=== PATIENT | female | born 1945 | race Caucasian/White ===

== ENCOUNTER → 2019-12-13 14:24 | Outpatient (BNVA) | payer MEDICARE, OTHER, SELFPAY | PROVIDERS: PCP Internal Medicine; Referring Provider Internal Medicine; Visit Provider Surgery | DX: C50.912 Malignant neoplasm of unspecified site of left female breast (principal); G47.00 Insomnia, unspecified; Z17.0 Estrogen receptor positive status [ER+]; Z92.3 Personal history of irradiation; F41.9 Anxiety disorder, unspecified | CPT/HCPCS: 99214 ==

== ENCOUNTER 2020-01-30 11:22 | Outpatient (REF) | payer MEDICARE, OTHER, SELFPAY ==
--- NOTE | 2020-01-30 11:27 | MM_ITS ---
EXAMINATION: MM DIAGNOSTIC DIGITAL MAMMOGRAPHY, BILATERAL CLINICAL INFORMATION: Status post lumpectomy 05/13/2023 and status post radiation for left invasive ductal cancer. Due for yearly. This represents first left mammography since treatment. COMPARISON: Mammography: 04/27/2019, 04/21/2019, 04/19/2019 (BI-RADS 0), 04/13/2018, 01/26/2017 TECHNIQUE: Digital mammography is performed in craniocaudal and mediolateral oblique views along with computer-aided detection (CAD). Additional magnification left CC and magnification left ML views are provided. FINDINGS: The breasts are heterogeneously dense, which may obscure small masses (ACR BI-RADS breast composition Category c). There are post therapy changes on the left with minor reduced breast size and scarring. The right breast parenchymal pattern is similar to prior studies. There is no developing density or interval mass or architectural abnormality. Neither breast shows abnormal calcifications. Results are provided to the patient at time of visit by the technologist. MM/MM diagnostic mammo BI IMPRESSION: No mammographic evidence of malignancy. Post therapy changes left breast. ASSESSMENT: BI-RADS 2: Benign RECOMMENDATION: Annual bilateral mammography. This patient's information was entered into a reminder system with a target due date for their next mammogram.
== END 2020-01-30 11:23 | disposition home or self-care (01) ==
LOC: HO.MAMMO 11:22
PROVIDERS: PCP Internal Medicine; Visit Provider Surgery
DX: Z85.3 Personal history of malignant neoplasm of breast (principal); Z92.3 Personal history of irradiation
CPT/HCPCS: 77066

== ENCOUNTER 2020-02-07 12:27 | Outpatient (REF) | payer MEDICARE, OTHER, SELFPAY ==
[2020-02-07 13:06] LABS: MANUAL DIFF FLAG NO
[2020-02-07 13:10] LABS: Basophils Percent Auto 0.9 % (0-2); Eosinophils Absolute Auto 0.1 X10*3/uL (0.0-0.4); Eosinophils Percent Auto 1.6 % (0-4); Hematocrit 42.6 % (37-47); Hemoglobin 13.6 g/dl (12.0-16.0); Imm Gran Abs Auto 0.01 X10*3/uL (0.00-0.03); Imm Gran Pct Auto 0.2 % (0.0-0.4); Lymphocytes Absolute Auto 1.2 X10*3/uL (1.2-4.9); Lymphocytes Percent Auto 26.7 % (20-40); Mean Corpuscular HGB Conc 31.9 g/dl (31.0-35.0); Mean Corpuscular Volume 90.8 fL (80-98); Mean Platelet Volume 9.6 fL (9.4-12.3); Monocytes Absolute Auto 0.5 X10*3/uL (0.1-1.2); Monocytes Percent Auto 10.3 % (2-11); Neutrophils Absolute Auto 2.7 X10*3/uL (2.0-8.3); Neutrophils Percent Auto 60.3 % (45-73); Platelet Count 232 X10*3/uL (160-400); Red Blood Count 4.69 X10*6/uL (4.20-5.50); Red Cell Distribution Width 12.7 % (11.0-16.0); White Blood Count 4.5 X10*3/uL (4.8-10.8)
[2020-02-07 13:42] LABS: Alanine Aminotransferase 12 U/L (0-31); Albumin Level 4.2 g/dL (3.5-5.0); Alkaline Phosphatase 80 U/L (39-117); Anion Gap 11 (12-20); Aspartate Amino Transferase 17 U/L (5-31); Bilirubin Total 0.7 mg/dL (0.0-1.0); Blood Urea Nitrogen 16 mg/dL (9-16); Calcium 9.1 mg/dL (8.4-10.2); Carbon Dioxide 28 mmol/L (22-29); Chloride 102 mmol/L (96-108); Cholesterol 220 mg/dL; Estimated Glomerular Filt Rate > 60; Glucose Fasting 98 mg/dL (60-99); HDL Cholesterol 94 mg/dL; LDL Cholesterol Calculated 114 mg/dl; Potassium 4.1 mmol/l (3.3-5.1); Sodium 137 mmol/L (135-145); Total Protein 6.8 g/dL (6.5-8.0); Triglycerides 62 mg/dL
[2020-02-07 13:53] LABS: Appearance Urine CLEAR; Color Urine YELLOW; Glucose Urine UA NEG (NEG); Leukocyte Esterase Urine NEG (NEG); Nitrite Urine NEG (NEG); Specific Gravity - Urine 1.015 (1.005-1.025); Urine Blood TRACE (NEG); Urine Ketones NEG (NEG); Urine Protein NEG (NEG-TRACE)
[2020-02-07 13:54] LABS: Vitamin D 25-OH Total 32.3 ng/mL (>30)
[2020-02-07 14:05] LABS: WBC Urine 0 /HPF (0-4)
[2020-02-07 14:09] LABS: Estimated Average Glucose 123 mg/dL; Hemoglobin A1c % 5.9 %
[2020-02-07 14:25] LABS: Creatinine Urine 75.91 mg/dL; Microalbum/Creatinine Ratio Ur 6.5 ug/mg cr
== END 2020-02-07 12:28 | disposition home or self-care (01) ==
LOC: HO.LAB 12:27
PROVIDERS: PCP Internal Medicine; Visit Provider Internal Medicine
DX: E78.00 Pure hypercholesterolemia, unspecified (principal); R73.03 Prediabetes; M85.89 Other specified disorders of bone density and structure, multiple sites; E55.9 Vitamin D deficiency, unspecified
CPT/HCPCS: 36415; 80053; 80061; 81001; 82043; 82306; 83036; 85025

== ENCOUNTER 2020-04-26 00:26 | Emergency (ER) | payer MEDICARE, OTHER, SELFPAY ==
--- NOTE | ~2020-04-26 | CT_ITS ---
EXAMINATION: CT HEAD WITHOUT CONTRAST CLINICAL INFORMATION: Dizziness. Hypertension. COMPARISON: None. TECHNIQUE: Contiguous axial imaging was performed from the skull base to vertex without intravenous contrast. This CT examination was performed using dose optimization techniques as appropriate, variously including the following: * Automated exposure control * Adjustment of mA and/or kV according to patient size (this includes techniques or standardized protocols for targeted exams where dose is matched to indication/reason for exam; i.e. extremities or head) Use of iterative reconstruction technique DLP: 638 mGy-cm. FINDINGS: There is no evidence of acute intracranial hemorrhage or territorial infarction. No abnormal mass effect or midline shift is seen. Gonzalez to white matter differentiation is well preserved. No extra-axial fluid collections are identified. No hydrocephalus. No significant volume loss. There is no abnormal attenuation within the brain parenchyma. The osseous structures and soft tissues are normal. Trace left mastoid air cell effusion. The right mastoid air cells and visualized portions of the paranasal sinuses are well aerated. CT/CT head/brain wo con IMPRESSION: No acute intracranial pathology.
[2020-04-26 00:48] VITALS: BP 138/88; PULSE 101; RESP 15; TEMP 36.6; O2SAT 96; BMI 23.1
--- NOTE | 2020-04-26 01:06 | ECG_ITS ---
Test Reason : DIZZINESS Blood Pressure : / mmHG Vent. Rate : 095 BPM Atrial Rate : 095 BPM P-R Int : 170 ms QRS Dur : 082 ms QT Int : 362 ms P-R-T Axes : 058 056 054 degrees QTc Int : 454 ms Normal sinus rhythm Normal ECG When compared with ECG of 13-JUL-2018 10:04, No significant change was found Referred By: Cecile Limon Electronically Signed By:SALVATORE CAMEJO MD
--- NOTE | 2020-04-26 01:42 | ED.GENADULT ---
HPI - General Adult General Chief complaint: General Medical Stated complaint: HIGH BLOOD PRESSURE Time Seen by Provider: 04/26/20 01:05 Source: patient Mode of arrival: ambulatory History of Present Illness HPI narrative: This is a 74-year-old female with history of breast CA diagnosed/ear and currently undergoing radiation who states that she had a gin and tonic this evening and was then brushing her teeth when she experienced a transient episode of darkness which she denies occurred in 1 eye versus another and was not associated with nausea/diaphoresis/headache/chest pain/palpitations, but states that she felt lightheaded which still remains. She denies any evidence of vertigo with the room spinning, slurred speech, unilateral weakness/numbness/tingling. She denies falling and was able to presents as a walk-in. Related Data Home Medications Medication Instructions Recorded Confirmed cholecalciferol (vitamin D3) 50 50 mcg PO DAILY 12/13/19 mcg (2,000 unit) capsule magnesium hydroxide 400 mg/5 mL 5 ml PO DAILY PRN 12/13/19 oral suspension Allergies Allergy/AdvReac Type Severity Reaction Status Date / Time Sulfa (Sulfonamide Allergy Intermediate RASH/SWELLING, Verified 04/26/20 00:57 Antibiotics) rash [SULFA (SULFONAMIDE ANTIBIOTICS)] indomethacin [INDOMETHACIN] AdvReac Severe (FROM Verified 04/26/20 00:57 TIVOBEX) FELT OUT OF IT pneumococcal vaccine AdvReac Unknown SWELLING, Verified 04/26/20 00:57 [PNEUMOCOCCAL VACCINE] REDNESS Review of Systems Review of Systems: Pertinent positives and negatives as stated in HPI 10 point review of systems is otherwise negative. [facility] Past Medical History Source: nursing notes reviewed Medical History Infiltrating ductal carcinoma of left breast, estrogen receptor positive, stage 1 Surgical History History of hysterectomy History of lumpectomy of left breast History of lymph node excision Social History Social History Alcohol intake: current Alcohol intake frequency: 0-2 drinks per day Alcohol type: hard liquor Smoking Status: Never smoker Use of substances other than those prescribed or required for medical reasons: No Advance Directives: No Physical Exam Vital Signs: Vital Signs: Last Vital Signs Temp 97.9 F 04/26/20 00:48 Pulse 92 04/26/20 02:12 Resp 15 04/26/20 00:48 BP 151/82 H 04/26/20 02:12 Pulse Ox 96 04/26/20 00:48 Body Mass Index 23.1 VITAL SIGNS: Reviewed. GENERAL: Well developed, well nourished, in no acute distress. HEAD: Normocephalic/atraumatic, EYES: PERRLA, EOMI intact without pain, no nystagmus EARS: Ext canals without abnormality, TMs non-bulging and non-erythematous NOSE: Nares patent bilateral OROPHARYNX: no oral lesions noted, posterior pharynx clear NECK: Supple, no adenopathy LUNGS: Normal breath sounds. No adventitious sounds or accessory muscle use. SpO2<96> CARDIOVASCULAR: Regular rate and rhythm without noted murmurs, no JVD or lower extremity edema. ABDOMEN: Soft, non-tender, non-distended with bowel sounds. SKIN: Inspection of the skin reveals no rashes NEUROLOGIC: Alert and oriented x 4. Strength and sensation to light touch were grossly intact x 4, no pronator drift, cranial nerves 2-12 are grossly intact, cerebellar testing intact, no facial asymmetry. Course Course Course Narrative: This is a 74-year-old female with history and clinical presentation most consistent with suspected combination low volume and alcohol ingestion. However, will rule out cardiac, neuro etiologies. Review of all investigations is negative for any acute findings other than an elevated BUN suggestive of possible dehydration and patient was provided 1 L IV fluids with reportedly improvement in her symptoms on re-evaluation. In addition it was noted that her high sensitivity troponin was mildly elevated and 2nd troponin was flat and comparison without any corresponding EKG changes. All results and findings were discussed with her bedside and she was strongly encouraged to follow-up with her primary care provider in the next 1-2 days. Medical Decision Making Lab Data Result diagrams: 04/26/20 01:38 04/26/20 01:38 Labs: Lab Results 04/26/20 04/26/20 04/26/20 Range/Units 01:38 01:38 01:38 WBC 7.2 (4.8-10.8) X10*3/uL RBC 4.45 (4.20-5.50) X10*6/uL Hgb 13.0 (12.0-16.0) g/dl Hct 40.0 (37-47) % MCV 89.9 (80-98) fL MCH 29.2 (27.0-33.0) pg MCHC 32.5 (31.0-35.0) g/dl RDW 12.3 (11.0-16.0) % Plt Count 234 (160-400) X10*3/uL MPV 9.7 (9.4-12.3) fL Immature Gran % (Auto) 0.3 (0.0-0.4) % Neut % (Auto) 72.4 (45-73) % Lymph % (Auto) 17.7 L (20-40) % [place] % (Auto) 8.0 (2-11) % Eos % (Auto) 1.0 (0-4) % Baso % (Auto) 0.6 (0-2) % Lymph # (Auto) 1.3 (1.2-4.9) X10*3/uL [place] # (Auto) 0.6 (0.1-1.2) X10*3/uL Eos # (Auto) 0.1 (0.0-0.4) X10*3/uL Baso # (Auto) 0.0 (0.0-0.2) X10*3/uL Abs Immat Gran (auto) 0.02 (0.00-0.03) X10*3/uL Absolute Neuts (auto) 5.2 (2.0-8.3) X10*3/uL Absolute Nucleated RBC 0.000 (0.0-0.012) X10*3/uL Nucleated RBC % (auto) 0.0 (0.0-0.2) /100WBC Sodium 141 (135-145) mmol/L Potassium 4.3 (3.3-5.1) mmol/L Chloride 105 (96-108) mmol/L Carbon Dioxide 26 (22-29) mmol/L Anion Gap 14 (12-20) BUN 26 H D (9-16) mg/dL Creatinine 0.76 (0.5-1.4) mg/dL Estim Creat Clear Calc 66.5 Estimated GFR > 60 Random Glucose 121 H (60-115) mg/dL Calcium 9.2 (8.4-10.2) mg/dL Total Bilirubin 0.2 (0.0-1.0) mg/dL AST 18 (5-31) U/L ALT 16 (0-31) U/L Alkaline Phosphatase 88 (39-117) U/L Troponin I High Sens 11.5 (<3.5-17.0) ng/L Total Protein 6.9 (6.5-8.0) g/dL Albumin 4.3 (3.5-5.0) g/dL Urine Color Urine Appearance Urine pH (5.0-8.0) Ur Specific [place] (1.005-1.025) Urine Protein (NEG-TRACE) MG/DL Urine Glucose (UA) (NEG) MG/DL Urine Ketones (NEG) MG/DL Urine Blood (NEG) Urine Nitrite (NEG) Ur Leukocyte Esterase (NEG) Urine RBC (0) /HPF Urine WBC (0-4) /HPF Ur Squamous Epith Cells /LPF Urine Bacteria /LPF Hyaline Casts /LPF Urine Mucus /LPF 04/26/20 04/26/20 Range/Units 02:25 04:39 WBC (4.8-10.8) X10*3/uL RBC (4.20-5.50) X10*6/uL Hgb (12.0-16.0) g/dl Hct (37-47) % MCV (80-98) fL MCH (27.0-33.0) pg MCHC (31.0-35.0) g/dl RDW (11.0-16.0) % Plt Count (160-400) X10*3/uL MPV (9.4-12.3) fL Immature Gran % (Auto) (0.0-0.4) % Neut % (Auto) (45-73) % Lymph % (Auto) (20-40) % [place] % (Auto) (2-11) % Eos % (Auto) (0-4) % Baso % (Auto) (0-2) % Lymph # (Auto) (1.2-4.9) X10*3/uL [place] # (Auto) (0.1-1.2) X10*3/uL Eos # (Auto) (0.0-0.4) X10*3/uL Baso # (Auto) (0.0-0.2) X10*3/uL Abs Immat Gran (auto) (0.00-0.03) X10*3/uL Absolute Neuts (auto) (2.0-8.3) X10*3/uL Absolute Nucleated RBC (0.0-0.012) X10*3/uL Nucleated RBC % (auto) (0.0-0.2) /100WBC Sodium (135-145) mmol/L Potassium (3.3-5.1) mmol/L Chloride (96-108) mmol/L Carbon Dioxide (22-29) mmol/L Anion Gap (12-20) BUN (9-16) mg/dL Creatinine (0.5-1.4) mg/dL Estim Creat Clear Calc Estimated GFR Random Glucose (60-115) mg/dL Calcium (8.4-10.2) mg/dL Total Bilirubin (0.0-1.0) mg/dL AST (5-31) U/L ALT (0-31) U/L Alkaline Phosphatase (39-117) U/L Troponin I High Sens 11.8 (<3.5-17.0) ng/L Total Protein (6.5-8.0) g/dL Albumin (3.5-5.0) g/dL Urine Color YELLOW Urine Appearance CLEAR Urine pH 6.0 (5.0-8.0) Ur Specific [place] >= 1.030 H (1.005-1.025) Urine Protein NEG (NEG-TRACE) MG/DL Urine Glucose (UA) NEG (NEG) MG/DL Urine Ketones NEG (NEG) MG/DL Urine Blood TRACE (NEG) Urine Nitrite NEG (NEG) Ur Leukocyte Esterase NEG (NEG) Urine RBC 1-4 (0) /HPF Urine WBC 5-9 H (0-4) /HPF Ur Squamous Epith Cells 1+ /LPF Urine Bacteria 1+ /LPF Hyaline Casts 5-9 /LPF Urine Mucus 1+ /LPF ECG Data Attestation: I personally reviewed and interpreted this ECG as follows: Prior ECG tracings: available for review (07/13/2018 no acute changes on comparison) Interpretation: Normal sinus rhythm, HR-95, no evidence of acute ischemia, IL/QRS/QTC are within normal limits. Discharge Plan Discharge Clinical Impression: Dizziness Patient Disposition: Home, Self-Care Instructions: Lightheadedness (ED) Additional Instructions: Please follow-up with your primary care provider in the next 1-2 days and do not hesitate to return to the emergency department should you develop any acute changes or worsening symptoms that brought you to the emergency department this evening. Prescriptions: No Action magnesium hydroxide 400 mg/5 mL suspension 5 ml PO DAILY PRNRF: 0 cholecalciferol (vitamin D3) 50 mcg (2,000 unit) capsule 50 mcg PO DAILY RF: 0 Referrals: Peter Bernabe MD [Primary Care Provider] - 2 days (Revaluation outpatient management for transient episode lightheadedness and on workup in the emergency department cardiopulmonary etiologies were negative.)
[2020-04-26 01:44] LABS: MANUAL DIFF FLAG NO
[2020-04-26 01:46] LABS: Basophils Percent Auto 0.6 % (0-2); Eosinophils Absolute Auto 0.1 X10*3/uL (0.0-0.4); Imm Gran Abs Auto 0.02 X10*3/uL (0.00-0.03); Imm Gran Pct Auto 0.3 % (0.0-0.4); Lymphocytes Absolute Auto 1.3 X10*3/uL (1.2-4.9); Lymphocytes Percent Auto 17.7 % (20-40); Mean Corpuscular HGB Conc 32.5 g/dl (31.0-35.0); Mean Corpuscular Hemoglobin 29.2 pg (27.0-33.0); Mean Corpuscular Volume 89.9 fL (80-98); Mean Platelet Volume 9.7 fL (9.4-12.3); Monocytes Absolute Auto 0.6 X10*3/uL (0.1-1.2); Neutrophils Absolute Auto 5.2 X10*3/uL (2.0-8.3); Neutrophils Percent Auto 72.4 % (45-73); Platelet Count 234 X10*3/uL (160-400); Red Blood Count 4.45 X10*6/uL (4.20-5.50); Red Cell Distribution Width 12.3 % (11.0-16.0); White Blood Count 7.2 X10*3/uL (4.8-10.8)
[2020-04-26 01:49] VITALS: BP 125/74; PULSE 86
[2020-04-26 02:10] LABS: Alanine Aminotransferase 16 U/L (0-31); Albumin Level 4.3 g/dL (3.5-5.0); Alkaline Phosphatase 88 U/L (39-117); Anion Gap 14 (12-20); Aspartate Amino Transferase 18 U/L (5-31); Bilirubin Total 0.2 mg/dL (0.0-1.0); Blood Urea Nitrogen 26 mg/dL (9-16); Calcium 9.2 mg/dL (8.4-10.2); Carbon Dioxide 26 mmol/L (22-29); Chloride 105 mmol/L (96-108); Creatinine Clr Calc Pharmacy 66.5; Estimated Glomerular Filt Rate > 60; Glucose Random 121 mg/dL (60-115); Potassium 4.3 mmol/L (3.3-5.1); Sodium 141 mmol/L (135-145); Total Protein 6.9 g/dL (6.5-8.0)
[2020-04-26 02:11] VITALS: BP 138/80; PULSE 86
[2020-04-26 02:12] VITALS: BP 151/82; PULSE 92
[2020-04-26 02:14] LABS: Troponin-I High Sensitivity 11.5 ng/L (<3.5-17.0)
[2020-04-26] MEDS: 0.9 % Sodium Chloride 1,000 ML 999 ML IV (02:23)
[2020-04-26 02:34] LABS: Glucose Urine UA NEG (NEG); Leukocyte Esterase Urine NEG (NEG); Nitrite Urine NEG (NEG); Specific Gravity - Urine >= 1.030 (1.005-1.025); Urine Blood TRACE (NEG); Urine Ketones NEG (NEG); Urine Protein NEG (NEG-TRACE)
[2020-04-26 02:38] LABS: Appearance Urine CLEAR; Color Urine YELLOW
[2020-04-26 02:44] LABS: Bacteria Urine 1+ /LPF; Mucus Urine 1+ /LPF; Squamous Epithelial Cell Urine 1+ /LPF; UACC CULT YES
[2020-04-26 04:00] VITALS: BP 128/64; PULSE 84; RESP 15; O2SAT 98
[2020-04-26 05:07] LABS: Troponin-I High Sensitivity 11.8 ng/L (<3.5-17.0)
== END 2020-04-26 05:36 | disposition home or self-care (01) ==
PROVIDERS: Emergency Provider Student in an Organized Health Care Education/Training Program; PCP Internal Medicine
DX: R42 Dizziness and giddiness (principal); E86.0 Dehydration; Z85.3 Personal history of malignant neoplasm of breast
CPT/HCPCS: 36415; 70450; 80053; 81001; 84484; 85025; 87086; 93005; 96360; 99284

== ENCOUNTER 2020-05-24 10:24 | Outpatient (REF) | payer MEDICARE, OTHER, SELFPAY ==
[2020-05-24 11:19] LABS: Blood Urea Nitrogen 21 mg/dL (9-16); Estimated Glomerular Filt Rate > 60
== END 2020-05-24 10:25 | disposition home or self-care (01) ==
LOC: HO.LNP 10:24
PROVIDERS: PCP Internal Medicine; Visit Provider Internal Medicine
DX: R79.89 Other specified abnormal findings of blood chemistry (principal)
CPT/HCPCS: 82565; 84520

== ENCOUNTER → 2020-07-05 10:09 | Outpatient (BNVA) | payer MEDICARE, OTHER, SELFPAY | PROVIDERS: PCP Internal Medicine; Referring Provider Internal Medicine; Visit Provider Surgery | DX: C50.912 Malignant neoplasm of unspecified site of left female breast (principal); Z17.0 Estrogen receptor positive status [ER+] | CPT/HCPCS: 99212 ==

== ENCOUNTER 2020-07-17 10:24 | Outpatient (REF) | payer MEDICARE, OTHER, SELFPAY | END 2020-07-17 10:25 | disposition home or self-care (01) | LOC: HO.LNP 10:24 | PROVIDERS: Visit Provider Internal Medicine | DX: F51.01 Primary insomnia (principal) | CPT/HCPCS: 84443 ==

== ENCOUNTER → 2020-11-27 09:37 | Outpatient (BNVA) | payer MEDICARE, OTHER, SELFPAY | PROVIDERS: PCP Internal Medicine; Visit Provider Surgery Vascular Surgery | DX: I83.11 Varicose veins of right lower extremity with inflammation (principal) | CPT/HCPCS: 99202 ==

== ENCOUNTER 2020-12-11 07:51 | Outpatient (REF) | payer MEDICARE, OTHER, SELFPAY ==
--- NOTE | ~2020-12-11 | US_ITS ---
EXAMINATION: BILATERAL LOWER EXTREMITY VENOUS ULTRASOUND (Reflux Exam) CLINICAL INDICATION: Lower extremity varicose veins. History of bilateral microphlebectomy approximately 4 years ago. COMPARISON: None. TECHNIQUE: Color flow triplex imaging and compression Doppler was performed to evaluate both the deep and the superficial systems bilaterally. To evaluate the superficial system, the examination was performed in the upright position. Color-flow Doppler ultrasound and compression ultrasound were utilized. In addition, maneuvers were utilized to demonstrate reflux. FINDINGS: 1. DEEP VENOUS ULTRASOUND OF THE RIGHT LOWER EXTREMITY: Common Femoral Vein: Compressible, normal respiratory variation and augmented flow. Femoral vein: Compressible, normal color flow and augmentation. Popliteal Vein: Compressible, normal augmentation. Deep Reflux: Popliteal vein measuring up to 0.6 cm. There is a 5.8 x 1.0 x 4.1 cm Weber's cyst in the right medial popliteal fossa. 2. SUPERFICIAL ULTRASOUND WITH DOPPLER OF RIGHT LOWER EXTREMITY GREAT SAPHENOUS VEIN: Saphenofemoral junction: 0.5 cm; Reflux: No evidence of reflux. Max diameter: 0.5 Min diameter: 0.1 Reflux: Segmental reflux below the knee measuring up to 3.2 seconds. Additional: The great saphenous vein at the proximal thigh is not visualized. DUPLICATED MEDIAL GREAT SAPHENOUS VEIN: Max Diameter: None Imaged Reflux: NA DUPLICATED LATERAL GREAT SAPHENOUS VEIN: Diameter: None Imaged Reflux: NA SMALL SAPHENOUS VEIN: Saphenopopliteal junction: 0.3 cm; Reflux: No evidence of reflux. Min diameter: 0.2 Reflux: No evidence of reflux. VEIN OF GIACOMINI: None Imaged. PERFORATORS: Location: At knee, 0.2 cm Reflux: None VARICOSITIES: Location: Mid calf, proximal thigh, lateral anterior knee and medial thigh. All varicosities measure greater than 3 mm. Reflux: Reflux present up to 3 seconds. 3. DEEP VENOUS ULTRASOUND OF THE LEFT LOWER EXTREMITY: Common Femoral Vein: Compressible, normal respiratory variation and augmented flow. Femoral vein: Compressible, normal color flow and augmentation. Popliteal Vein: Compressible, normal augmentation. Deep Reflux: There is no evidence of reflux in the deep system in either the common femoral vein or the popliteal vein. Within the left popliteal fossa is a 5.8 x 1.0 x 0.6 cm Weber's cyst. 4. SUPERFICIAL ULTRASOUND WITH DOPPLER OF LEFT LOWER EXTREMITY GREAT SAPHENOUS VEIN: Saphenopopliteal junction: 0.7 cm; Reflux: No evidence of reflux. Max diameter: 0.7 Min diameter: 0.2 Reflux: No evidence of reflux. Additional: The great saphenous vein is not seen from the mid thigh to the mid calf. DUPLICATED MEDIAL GREAT SAPHENOUS VEIN: Max Diameter: None Imaged Reflux: NA DUPLICATED LATERAL GREAT SAPHENOUS VEIN: Diameter: 0.3 cm Reflux: None SMALL SAPHENOUS VEIN: Saphenofemoral junction: 0.2 cm; Reflux: No evidence of reflux. Min diameter: 0.2 Reflux: 0.8 seconds at the mid calf. VEIN OF GIACOMINI: None Imaged. PERFORATORS: Location: Mid thigh and distal calf measuring 2 mm. Reflux: None VARICOSITIES: Location: Proximal thigh, measuring 3 mm. Reflux: None US/US venous duplex LE BI IMPRESSION: 1. Segmental reflux within the right great saphenous vein below the knee. 2. No evidence of left great saphenous venous insufficiency. The left great saphenous vein is not visualized from the mid thigh to the mid calf, likely related to prior treatment. 3. Segmental reflux within the left small saphenous vein at the mid calf. 4. Numerous right lower extremity refluxing varicosities. 5. Nonrefluxing varicosity seen within the proximal left thigh. 6. Deep venous insufficiency involving the right popliteal vein. 7. No evidence of DVT. 8. Bilateral Weber's cysts.
== END 2020-12-11 07:52 | disposition home or self-care (01) ==
LOC: HO.US 07:51
PROVIDERS: PCP Internal Medicine; Visit Provider Surgery Vascular Surgery
DX: I83.893 Varicose veins of bilateral lower extremities with other complications (principal); I83.11 Varicose veins of right lower extremity with inflammation
CPT/HCPCS: 93970

== ENCOUNTER → 2020-12-18 09:35 | Outpatient (BNVA) | payer MEDICARE, OTHER, SELFPAY | PROVIDERS: PCP Internal Medicine; Visit Provider Surgery Vascular Surgery | DX: I83.11 Varicose veins of right lower extremity with inflammation (principal) | CPT/HCPCS: 99212 ==

== ENCOUNTER 2021-01-29 09:01 | Outpatient (REF) | payer MEDICARE, OTHER, SELFPAY ==
--- NOTE | ~2021-01-29 | MM_ITS ---
EXAMINATION: MM DIAGNOSTIC DIGITAL BREAST TOMOSYNTHESIS, BILATERAL CLINICAL INFORMATION: Status post lumpectomy 05/13/2023 and status post radiation for left invasive ductal cancer. Due for yearly. COMPARISON: Mammography: 01/30/2020, 04/27/2019, 04/19/2019, 04/13/2018 TECHNIQUE: Digital breast tomosynthesis is performed in both the craniocaudal and mediolateral oblique views along with computer-aided detection (CAD). Synthesized 2D images are generated from the tomosynthesis. Additional magnification left CC and magnification left ML views are obtained. FINDINGS: The breasts are heterogeneously dense, which may obscure small masses (ACR BI-RADS breast composition Category c). Breast parenchymal pattern is similar to prior exam. There are post therapy changes on left with minor stable scarring 11:30 mid posterior breast. Neither breast shows interval mass or architectural abnormality. There are scattered benign coarse and rim calcifications. The skin contours are smooth. The axilla are unremarkable. Results are provided to the patient at time of visit by the technologist. MM/MM tomosynthesis diagnostic BI IMPRESSION: No mammographic evidence of malignancy. Post therapy changes left breast. ASSESSMENT: BI-RADS 2: Benign RECOMMENDATION: Annual bilateral mammography. This patient's information was entered into a reminder system with a target due date for their next mammogram.
== END 2021-01-29 09:02 | disposition home or self-care (01) ==
LOC: HO.MAMMO 09:01
PROVIDERS: PCP Internal Medicine; Visit Provider Surgery
DX: Z85.3 Personal history of malignant neoplasm of breast (principal); Z98.890 Other specified postprocedural states; Z92.3 Personal history of irradiation
CPT/HCPCS: 77062; 77066

== ENCOUNTER → 2021-02-05 09:21 | Outpatient (BNVA) | payer MEDICARE, OTHER, SELFPAY | PROVIDERS: PCP Internal Medicine; Referring Provider Internal Medicine; Visit Provider Surgery | DX: C50.912 Malignant neoplasm of unspecified site of left female breast (principal); R92.2 Inconclusive mammogram; Z17.0 Estrogen receptor positive status [ER+] | CPT/HCPCS: 99212 ==

== ENCOUNTER 2021-02-12 11:48 | Outpatient (REF) | payer MEDICARE, OTHER, SELFPAY ==
--- NOTE | ~2021-02-12 | MR_ITS ---
EXAMINATION: MR BREAST WITHOUT AND WITH CONTRAST, BILATERAL CLINICAL INFORMATION: Left breast cancer diagnosed 2019. Dense breasts. High-risk screening. COMPARISON: Mammography from 01/29/2021. TECHNIQUE: Imaging was performed with a dedicated breast coil. Prior to the administration of contrast, bilateral axial T1 and bilateral axial T2 weighted sequences were obtained. After the uneventful administration of?7 mL of Gadavist, dynamic contrast-enhanced VIBRANT series through the breasts in the axial plane were performed. Subtracted images were performed and reviewed. A delayed sagittal sequence through both breasts was acquired. Additionally, CAD post-processing, including maximum intensity projections, 3-D reconstructions and kinetic analysis, were performed an independent workstation and reviewed by the interpreting radiologist is a portion of this exam. FINDINGS: The breasts are comprised of heterogeneous, dense fibroglandular parenchyma. The tissue undergoes mild background enhancement. LEFT BREAST: There is architectural distortion and susceptibility artifact in the left upper inner quadrant, site of lumpectomy. No abnormal associated enhancement. No suspicious left breast mass or dominant nonmass enhancement. RIGHT BREAST: No suspicious mass, dominant nonmass enhancement or architectural distortion. Tiny intramammary node in the axillary tail (image 45/106). There is no suspicious internal mammary chain or axillary adenopathy. Limited views of the chest and abdomen demonstrate a T2 bright nonenhancing liver lesions consistent with cysts. MR/MR breast BI wo/w con IMPRESSION: No MR specific evidence of malignancy. Left lumpectomy. ASSESSMENT: LEFT BREAST: BI-RADS 2 RIGHT BREAST: BI-RADS 2 RECOMMENDATIONS: Yearly bilateral breast MR per published guidelines in high-risk patients.
[2021-02-12 11:50] LABS: Blood Urea Nitrogen 17 mg/dL (9-16); Estimated Glomerular Filt Rate > 60
== END 2021-02-12 11:49 | disposition home or self-care (01) ==
LOC: HO.MRI 11:48
PROVIDERS: PCP Internal Medicine; Visit Provider Surgery
DX: C50.912 Malignant neoplasm of unspecified site of left female breast (principal); Z17.0 Estrogen receptor positive status [ER+]; R92.2 Inconclusive mammogram
CPT/HCPCS: 36415; 77049; 82565; 84520; A9585

== ENCOUNTER 2021-02-26 10:16 | Outpatient (REF) | payer MEDICARE, OTHER, SELFPAY ==
[2021-02-26 10:19] LABS: MANUAL DIFF FLAG NO
[2021-02-26 10:28] LABS: Appearance Urine CLEAR; Color Urine YELLOW; Glucose Urine UA NEG (NEG); Leukocyte Esterase Urine NEG (NEG); Nitrite Urine NEG (NEG); Specific Gravity - Urine 1.015 (1.005-1.025); Urine Blood TRACE (NEG); Urine Ketones NEG (NEG); Urine Protein NEG (NEG-TRACE)
[2021-02-26 10:41] LABS: Basophils Percent Auto 0.8 % (0-2); Eosinophils Absolute Auto 0.1 X10*3/uL (0.0-0.4); Eosinophils Percent Auto 2.3 % (0-4); Hematocrit 41.9 % (37.0-47.0); Hemoglobin 13.5 g/dl (12.0-16.0); Imm Gran Abs Auto 0.02 X10*3/uL (0.00-0.03); Imm Gran Pct Auto 0.4 % (0.0-0.4); Lymphocytes Absolute Auto 1.7 X10*3/uL (1.2-4.9); Lymphocytes Percent Auto 32.3 % (20-40); Mean Corpuscular HGB Conc 32.2 g/dl (31.0-35.0); Mean Corpuscular Hemoglobin 29.1 pg (27.0-33.0); Mean Corpuscular Volume 90.3 fL (80.0-98.0); Mean Platelet Volume 10.1 fL (9.4-12.3); Monocytes Absolute Auto 0.5 X10*3/uL (0.1-1.2); Neutrophils Percent Auto 55.2 % (45-73); Platelet Count 239 X10*3/uL (160-400); Red Blood Count 4.64 X10*6/uL (4.20-5.50); Red Cell Distribution Width 12.3 % (11.0-16.0); White Blood Count 5.3 X10*3/uL (4.8-10.8)
[2021-02-26 10:46] LABS: Mucus Urine TRACE /LPF; Squamous Epithelial Cell Urine TRACE /LPF; WBC Urine 0 /HPF (0-4)
[2021-02-26 11:35] LABS: Creatinine Urine 141.13 mg/dL; Microalbumin Urine < 5.0 mg/L
[2021-02-26 11:36] LABS: Alanine Aminotransferase 14 U/L (0-31); Albumin Level 4.1 g/dL (3.5-5.0); Alkaline Phosphatase 86 U/L (39-117); Anion Gap 9 (12-20); Aspartate Amino Transferase 18 U/L (5-31); Bilirubin Total 0.6 mg/dL (0.0-1.0); Blood Urea Nitrogen 17 mg/dL (9-16); Calcium 9.5 mg/dL (8.4-10.2); Carbon Dioxide 30 mmol/L (22-29); Chloride 105 mmol/L (96-108); Cholesterol 217 mg/dL; Estimated Glomerular Filt Rate > 60; Glucose Fasting 97 mg/dL (60-99); HDL Cholesterol 78 mg/dL; LDL Cholesterol Calculated 123 mg/dl; Potassium 4.4 mmol/L (3.3-5.1); Sodium 140 mmol/L (135-145); Total Protein 6.7 g/dL (6.5-8.0); Triglycerides 82 mg/dL
[2021-02-26 11:59] LABS: Vitamin D 25-OH Total 30.8 ng/mL (>30)
[2021-02-26 12:18] LABS: Reflex LDLD? No
[2021-02-26 12:49] LABS: Estimated Average Glucose 120 mg/dL; Hemoglobin A1C 149.0827 umol/L; Hemoglobin A1c % 5.8 %
== END 2021-02-26 10:17 | disposition home or self-care (01) ==
LOC: HO.LNP 10:16
PROVIDERS: Visit Provider Internal Medicine
DX: E78.00 Pure hypercholesterolemia, unspecified (principal); R73.03 Prediabetes; E55.9 Vitamin D deficiency, unspecified; R79.9 Abnormal finding of blood chemistry, unspecified
CPT/HCPCS: 80053; 80061; 81001; 82043; 82306; 83036; 85025

== ENCOUNTER 2021-05-21 14:39 | Outpatient (REF) | payer MEDICARE, OTHER, SELFPAY ==
--- NOTE | ~2021-05-21 | US_ITS ---
EXAMINATION: US ABDOMEN LIMITED CLINICAL INFORMATION: Posterior lower back mass. COMPARISON: None TECHNIQUE: Real-time imaging of the right lateral lower back. Comparison imaging of the left lower back was performed. FINDINGS: There is a 2.5 x 2 x 1 cm slightly hypoechoic solid area in the cutaneous fat. This does not appear to be related to the musculature or abdominal wall to suggest a hernia and may represent a lipoma. This could be confirmed with CT or ultrasound clinically indicated. US/US abdomen limited IMPRESSION: 2.5 x 2 x 1 cm hypoechoic area in the right lower back questionable for a lipoma. This could be further evaluated with CT or MRI if clinically indicated.
== END 2021-05-21 14:40 | disposition home or self-care (01) ==
LOC: HO.US 14:39
PROVIDERS: Visit Provider Internal Medicine
DX: R22.2 Localized swelling, mass and lump, trunk (principal)
CPT/HCPCS: 76705

== ENCOUNTER → 2021-08-06 09:54 | Outpatient (BNVA) | payer MEDICARE, OTHER, SELFPAY | PROVIDERS: PCP Internal Medicine; Visit Provider Surgery | DX: R92.2 Inconclusive mammogram (principal); Z85.3 Personal history of malignant neoplasm of breast; Z92.3 Personal history of irradiation | CPT/HCPCS: 99212 ==

== ENCOUNTER 2022-01-27 08:53 | Outpatient (REF) | payer MEDICARE, OTHER, SELFPAY ==
--- NOTE | ~2022-01-27 | MM_ITS ---
EXAMINATION: MM DIAGNOSTIC DIGITAL BREAST TOMOSYNTHESIS, BILATERAL CLINICAL INFORMATION: Left breast ICD status post lumpectomy 04/27/2019. Due for yearly. COMPARISON: Mammography: 01/29/2021, 01/30/2020, 05/13/2019, 04/27/2019, 04/19/2019 TECHNIQUE: Digital breast tomosynthesis is performed in both the craniocaudal and mediolateral oblique views along with computer-aided detection (CAD). Synthesized 2D images are generated from the tomosynthesis. Additional left magnification CC and left magnification ML views are provided. FINDINGS: The breasts are heterogeneously dense, which may obscure small masses (ACR BI-RADS breast composition Category c). Left breast post therapy changes are stable. Neither breast shows interval mass or developing density or abnormal calcifications. There are scattered bilateral benign round and rim calcifications. The axilla are unremarkable. No significant changes. Results are provided to the patient at time of visit by the technologist. MM/MM tomosynthesis diagnostic BI IMPRESSION: -No mammographic evidence of malignancy. -Post therapy changes left breast. ASSESSMENT: BI-RADS 2: Benign RECOMMENDATION: Annual bilateral mammography. This patient's information was entered into a reminder system with a target due date for their next mammogram.
== END 2022-01-27 08:54 | disposition home or self-care (01) ==
LOC: HO.MAMMO 08:53
PROVIDERS: PCP Internal Medicine; Visit Provider Internal Medicine
DX: Z85.3 Personal history of malignant neoplasm of breast (principal)
CPT/HCPCS: 77062; 77066

== ENCOUNTER → 2022-02-04 10:04 | Outpatient (BNVA) | payer MEDICARE, OTHER, SELFPAY | PROVIDERS: PCP Internal Medicine; Visit Provider Surgery | DX: C50.212 Malignant neoplasm of upper-inner quadrant of left female breast (principal); R92.2 Inconclusive mammogram; Z17.0 Estrogen receptor positive status [ER+] | CPT/HCPCS: 99212 ==

== ENCOUNTER 2022-03-06 10:50 | Outpatient (REF) | payer MEDICARE, OTHER, SELFPAY ==
[2022-03-06 10:58] LABS: MANUAL DIFF FLAG NO
[2022-03-06 11:33] LABS: Basophils Percent Auto 0.8 % (0-2); Eosinophils Absolute Auto 0.1 X10*3/uL (0.0-0.4); Eosinophils Percent Auto 2.1 % (0-4); Hematocrit 41.8 % (37.0-47.0); Hemoglobin 13.4 g/dl (12.0-16.0); Imm Gran Abs Auto 0.01 X10*3/uL (0.00-0.03); Imm Gran Pct Auto 0.2 % (0.0-0.4); Lymphocytes Absolute Auto 1.5 X10*3/uL (1.2-4.9); Lymphocytes Percent Auto 27.8 % (20-40); Mean Corpuscular HGB Conc 32.1 g/dl (31.0-35.0); Mean Corpuscular Hemoglobin 28.8 pg (27.0-33.0); Mean Corpuscular Volume 89.9 fL (80.0-98.0); Monocytes Absolute Auto 0.5 X10*3/uL (0.1-1.2); Monocytes Percent Auto 8.8 % (2-11); Neutrophils Absolute Auto 3.2 x10*3/uL (2.0-8.3); Neutrophils Percent Auto 60.3 % (45-73); Platelet Count 224 X10*3/uL (160-400); Red Blood Count 4.65 X10*6/uL (4.20-5.50); Red Cell Distribution Width 12.2 % (11.0-16.0); White Blood Count 5.2 X10*3/uL (4.8-10.8)
[2022-03-06 11:34] LABS: Color Urine Yellow; Glucose Urine UA Negative (Negative); Leukocyte Esterase Urine Negative (Negative); Nitrite Urine Negative (Negative); Urine Blood Negative (Negative); Urine Ketones Negative (Negative); Urine Protein Negative (Neg-Trace)
[2022-03-06 11:37] LABS: Appearance Urine Clear; Estimated Average Glucose 120 mg/dL; Hemoglobin A1c % 5.8 %
[2022-03-06 11:41] LABS: Bacteria Urine None Seen (None Seen); Hyaline Casts Urine 0-2 /LPF (0-2); Squamous Epithelial Cell Urine 0-2 /HPF (0-2); WBC Urine 0-5 /HPF (0-5)
[2022-03-06 11:44] LABS: Alanine Aminotransferase 12 U/L (0-31); Albumin Level 4.1 g/dL (3.5-5.0); Alkaline Phosphatase 87 U/L (39-117); Anion Gap 11 (12-20); Aspartate Amino Transferase 18 U/L (5-31); Bilirubin Total 0.5 mg/dL (0.0-1.0); Blood Urea Nitrogen 17 mg/dL (9-16); Carbon Dioxide 28 mmol/L (22-29); Chloride 105 mmol/L (96-108); Cholesterol 222 mg/dL; Estimated Glomerular Filt Rate > 60; Glucose Fasting 100 mg/dL (60-99); HDL Cholesterol 90 mg/dL; LDL Cholesterol Calculated 119 mg/dl; Potassium 4.2 mmol/L (3.3-5.1); Sodium 140 mmol/L (135-145); Total Protein 6.4 g/dL (6.5-8.0); Triglycerides 68 mg/dL
[2022-03-06 12:00] LABS: Vitamin D 25-OH Total 29.4 ng/mL (>30)
[2022-03-06 12:07] LABS: Microalbum/Creatinine Ratio Ur 5.6 ug/mg cr
== END 2022-03-06 10:51 | disposition home or self-care (01) ==
LOC: HO.LNP 10:50
PROVIDERS: Visit Provider Internal Medicine
DX: E78.00 Pure hypercholesterolemia, unspecified (principal); R73.03 Prediabetes; E55.9 Vitamin D deficiency, unspecified
CPT/HCPCS: 80053; 80061; 81001; 82043; 82306; 83036; 85025; 87086

== ENCOUNTER → 2022-07-31 09:41 | Outpatient (BNVA) | payer MEDICARE, OTHER, SELFPAY | PROVIDERS: PCP Internal Medicine; Visit Provider Surgery | DX: C50.912 Malignant neoplasm of unspecified site of left female breast (principal); R92.2 Inconclusive mammogram; Z17.0 Estrogen receptor positive status [ER+] | CPT/HCPCS: 99212 ==

== ENCOUNTER 2023-01-29 11:00 | Outpatient (REF) | payer MEDICARE, OTHER, SELFPAY ==
--- NOTE | ~2023-01-29 | MM_ITS ---
EXAMINATION: MM DIAGNOSTIC DIGITAL BREAST TOMOSYNTHESIS, BILATERAL CLINICAL INFORMATION: Left breast IDC status post lumpectomy 04/27/2019. Due for yearly. COMPARISON: Mammography: 01/19/2022, 01/29/2021, 01/30/2020, 05/13/2019, 04/27/2019, 04/19/2019 TECHNIQUE: Digital breast tomosynthesis is performed in both the craniocaudal and mediolateral oblique views along with computer-aided detection (CAD). Synthesized 2D images are generated from the tomosynthesis. In addition, 2-D spot magnification left CC and ML views were preserved performed of the lumpectomy site. FINDINGS: There are scattered areas of fibroglandular density (ACR BI-RADS breast composition Category b). There are stable changes of lumpectomy and conservation treatment therapy in the left breast superiorly and slightly medially. No suspicious changes to the lumpectomy site. There are bilateral dystrophic appearing calcifications. There are no suspicious grouped pleomorphic calcifications. There are no masses, or areas of architectural distortion. The overall parenchymal pattern is unchanged. MM/MM tomosynthesis diagnostic BI IMPRESSION: There are no significant changes from prior study. Stable post treatment related changes left breast. This completes 3 year post lumpectomy protocol for the left breast. Recommend the patient return to routine annual screening. ASSESSMENT: BI-RADS BI-RADS 2 - Benign Findings RECOMMENDATION: 1 year F/U Results were provided to the patient at time of visit by the technologist. This patient's information was entered into a reminder system with a target due date for their next mammogram.
== END 2023-01-29 11:01 | disposition home or self-care (01) ==
LOC: HO.MAMMO 11:00
PROVIDERS: Absent Provider Surgery; PCP Internal Medicine; Visit Provider Internal Medicine
DX: Z85.3 Personal history of malignant neoplasm of breast (principal)
CPT/HCPCS: 77062; 77066

== ENCOUNTER → 2023-01-29 11:00 | Outpatient (BNV) | payer MEDICARE, OTHER, SELFPAY | PROVIDERS: Absent Provider Surgery; PCP Internal Medicine; Visit Provider Radiology Diagnostic Radiology | DX: R92.1 Mammographic calcification found on diagnostic imaging of breast (principal) | CPT/HCPCS: 77062; 77066; G0279 ==

== ENCOUNTER 2023-02-03 15:04 | Outpatient (AMB) | payer MEDICARE, OTHER, SELFPAY ==
--- NOTE | 2023-02-03 15:06 | MHC.OFFVIS ---
Intake Vital Signs 02/03/23 15:16 Height 5 ft 8 in Weight 153 lb BMI 23.3 BP 139/73 Blood Pressure Location Lt brachial Position Sitting Pulse 79 Intake Visit Reasons: 6 month follow up breast exam Intake Note: Patient is seen in office for 6 month follow up visit, breast exam. Patient c/o: denies any concerns regarding the breast mm:12/23/22 MRI DUE NOW Plastic Installer Required: No Accompanied by: Self / Same As Patient Allergies Sulfa (Sulfonamide Antibiotics) [SULFA (SULFONAMIDE ANTIBIOTICS)] Allergy (Intermediate, Verified 02/03/23 15:15) RASH/SWELLING, rash indomethacin [INDOMETHACIN] Adverse Reaction (Severe, Verified 02/03/23 15:15) (FROM TIVOBEX) FELT OUT OF IT pneumococcal vaccine [PNEUMOCOCCAL VACCINE] Adverse Reaction (Unknown, Verified 02/03/23 15:15) SWELLING, REDNESS Medication List - Last Reconciled 02/03/23 by Jesus Browning MD cholecalciferol (vitamin D3) 50 mcg PO DAILY magnesium hydroxide 5 mL PO DAILY PRN HPI HPI Comments History of Present Illness Details 77-year-old female patient, returning for a follow-up breast examination. She was initially evaluated by Dr. Dietrich 04/26/2019 was noted to have a palpable density at the 11 o'clock position of the left breast measuring 1.5 cm approximately 4 cm from the nipple. Mammogram of 04/19/2019 and 04/21/2019 revealed a nodular asymmetry with radiating lines of the the upper inner quadrant left breast. Lesion was 0.9 cm in diameter and felt to be suspicious for malignancy. She underwent ultrasound-guided core biopsy on 04/26/2019. This revealed an infiltrating ductal carcinoma grade 1-2, ER positive, [place] negative, HER2 Homero equivocal. On 05/13/2019 she underwent a left breast lumpectomy with needle localization, sentinel node biopsy. Pathology revealed a 1.4 cm grade 2 infiltrating ductal carcinoma, ER positive, [place] negative, HER2 Homero negative, 0 of 1 lymph nodes with metastatic disease. She was evaluated by Dr. Adam and the patient declined antiestrogen therapy. She was evaluated by Dr. Jiang and underwent left breast radiation therapy and tolerated this well. Since her last visit she feels well and denies any ongoing symptoms . She continues to report a palpable nodule in the right back moves around when palpated but does not cause any pain. It has not changed in size and was previously felt to be a lipoma both but on examination and by ultrasound. Her most recent mammogram dated 01/29/2023 revealed no significant change from the prior mammogram and no mammographic evidence of malignancy (BI-RADS 2). Follow-up mammogram in 1 year is recommended. [facility] Medical History Infiltrating ductal carcinoma of left breast, estrogen receptor positive, stage 1 Surgical History History of lymph node excision History of lumpectomy of left breast History of hysterectomy Family History Mother Lung cancer Father Parkinson disease Social History Household Members: Spouse Housing: House Are you a primary technical healthcare consultant to a significant other at home: No Do you presently have visiting nurse or other home services: No Alcohol intake: current Alcohol intake frequency: 0-2 drinks per day Alcohol type: hard liquor Patient Tobacco Use Status: Never used Tobacco service: No Current occupational status: retired Review of Systems Const Denies chills, Denies fever(s), Denies headache(s) and Denies poor appetite ENT Denies dizziness and Denies headache(s) Card Denies chest pain, Denies rapid heart rate, Denies palpitations and Denies slow heart rate Resp Denies chest congestion, Denies cough, Denies pain on inspiration and Denies wheezing GI Denies abdominal pain, Denies bloating, Denies change in stool character, Denies constipation, Denies diarrhea, Denies nausea, Denies vomiting and Denies hematemesis Musc Denies back pain, Denies arthralgias, Denies joint swelling and Denies numbness Skin/Breast Denies change in pigmentation, Denies erythema and Denies rash Neuro Denies dizziness, Denies headache(s) and Denies numbness Psych Denies anxiety and Denies depression Endo Denies palpitations Anibal/Lymph Denies easy bleeding, Denies easy bruising and Denies lymphadenopathy Aller/Immun Denies wheezing Physical Exam Vital Signs: Last Vital Signs Pulse 79 02/03/23 15:16 BP 139/73 02/03/23 15:16 BMI result Body Mass Index 23.3 Const General: cooperative, comfortable and well developed Nutritional Appearance: well nourished Orientation/consciousness: patient oriented x3 Eyes Sclerae: sclerae normal EOM: EOMs intact bilaterally Neck Neck: Yes normal visual inspection Chest Other: Bilateral very dense breast tissue however no new skin changes, nipple discharge, nipple retraction, palpable mass, or enlarged lymph node is noted on either side. There is a well-healed incision in the upper outer portion of the left breast. There is tenderness around this incision and in the axilla. No new palpable masses noted Resp Effort & Inspection: normal respiratory effort, no cough, no respiratory distress and no stridor Cardio Jugular venous distension: no JVD Back/Spine/Pelvis Other: Soft tissue mass in the right flank at the posterior axillary line consistent with lipoma within the subcutaneous tissue. Lesion measures approximately 2 cm in diameter. No overlying skin changes are appreciated. Skin General skin exam: dry skin Rashes: no rashes Neuro General: patient oriented x3 and no focal motor deficits Extrem General: Yes full ROM and Yes no clubbing, cyanosis or edema Psych Appearance: grossly normal Assessment & Plan Assessment & Plan (1) Infiltrating ductal carcinoma of left breast, estrogen receptor positive, stage 1: Code(s): C50.912 - Malignant neoplasm of unspecified site of left female breast; Z17.0 - Estrogen receptor positive status [ER+] (2) Dense breast tissue on mammogram: Code(s): R92.2 - Inconclusive mammogram Qualifiers: Mammographic dense breast tissue type: heterogeneous Laterality: bilateral Qualified Code(s): R92.333 - Mammographic heterogeneous density, bilateral breasts Plan 77-year-old female patient with history of left breast lumpectomy and sentinel node biopsy for an infiltrating ductal carcinoma in the 11 o'clock position on 05/13/2019. Her last mammogram of 01/29/2023 revealed no suspicious findings in either breast (BI-RADS 2). On examination today, no suspicious findings were identified in either breast. She will continue to undergo yearly mammograms and should return in 6 months for follow-up examination. Coding Level of Care Code Est Pt Level 3 (75195) Diagnoses Infiltrating ductal carcinoma of left breast, estrogen receptor positive, stage 1 C50.912; Z17.0 Heterogeneously dense tissue of both breasts on mammography R92.333 Mammographic dense breast tissue type: heterogeneous Laterality: bilateral
[2023-02-03 15:16] VITALS: BP 139/73; PULSE 79; BMI 23.3
== END 2023-02-03 15:28 | disposition home or self-care (01) ==
PROVIDERS: PCP Internal Medicine; Visit Provider Surgery
DX: C50.912 Malignant neoplasm of unspecified site of left female breast (principal); Z17.0 Estrogen receptor positive status [ER+]; R92.333 Mammographic heterogeneous density, bilateral breasts
CPT/HCPCS: 99213

== ENCOUNTER → 2023-02-03 15:04 | Outpatient (BNVA) | payer MEDICARE, OTHER, SELFPAY | PROVIDERS: PCP Internal Medicine; Visit Provider Surgery | DX: C50.912 Malignant neoplasm of unspecified site of left female breast (principal); R92.333 Mammographic heterogeneous density, bilateral breasts; Z17.0 Estrogen receptor positive status [ER+] | CPT/HCPCS: 99212 ==

== ENCOUNTER 2023-03-06 10:39 | Outpatient (REF) | payer MEDICARE, OTHER, SELFPAY ==
[2023-03-06 10:43] LABS: MANUAL DIFF FLAG NO
[2023-03-06 11:01] LABS: Basophils Percent Auto 0.8 % (0-2); Eosinophils Absolute Auto 0.2 X10*3/uL (0.0-0.4); Eosinophils Percent Auto 4.6 % (0-4); Hematocrit 42.2 % (37.0-47.0); Hemoglobin 13.6 g/dl (12.0-16.0); Imm Gran Abs Auto 0.01 X10*3/uL (0.00-0.03); Imm Gran Pct Auto 0.2 % (0.0-0.4); Lymphocytes Absolute Auto 1.3 X10*3/uL (1.2-4.9); Lymphocytes Percent Auto 26.7 % (20-40); Mean Corpuscular HGB Conc 32.2 g/dl (31.0-35.0); Mean Corpuscular Hemoglobin 28.8 pg (27.0-33.0); Mean Corpuscular Volume 89.2 fL (80.0-98.0); Monocytes Absolute Auto 0.5 X10*3/uL (0.1-1.2); Monocytes Percent Auto 9.4 % (2-11); Neutrophils Absolute Auto 2.9 x10*3/uL (2.0-8.3); Neutrophils Percent Auto 58.3 % (45-73); Platelet Count 246 X10*3/uL (160-400); Red Blood Count 4.73 X10*6/uL (4.20-5.50); Red Cell Distribution Width 12.4 % (11.0-16.0)
[2023-03-06 11:36] LABS: Alanine Aminotransferase 10 U/L (0-31); Alkaline Phosphatase 82 U/L (39-117); Anion Gap 10 (12-20); Aspartate Amino Transferase 17 U/L (5-31); Bilirubin Total 0.6 mg/dL (0.0-1.0); Blood Urea Nitrogen 18 mg/dL (9-16); Calcium 9.3 mg/dL (8.4-10.2); Carbon Dioxide 30 mmol/L (22-29); Chloride 105 mmol/L (96-108); Cholesterol 209 mg/dL (<200); Estimated Glomerular Filt Rate > 60; Glucose Fasting 102 mg/dL (60-99); HDL Cholesterol 95 mg/dL (>40); LDL Cholesterol Calculated 103 mg/dL (<100); Potassium 4.1 mmol/L (3.3-5.1); Sodium 141 mmol/L (135-145); Total Protein 6.7 g/dL (6.5-8.0); Triglycerides 58 mg/dL (<150)
[2023-03-06 11:51] LABS: Vitamin D 25-OH Total 38.2 ng/mL (>30)
[2023-03-06 12:08] LABS: Creatinine Urine 179.85 mg/dL; Microalbum/Creatinine Ratio Ur 6.1 ug/mg cr (<30)
== END 2023-03-06 10:40 | disposition home or self-care (01) ==
LOC: HO.LNP 10:39
PROVIDERS: Visit Provider Internal Medicine
DX: E78.00 Pure hypercholesterolemia, unspecified (principal); R73.03 Prediabetes; E55.9 Vitamin D deficiency, unspecified
CPT/HCPCS: 80053; 80061; 81001; 82043; 82306; 82570; 83036; 85025

== ENCOUNTER 2023-03-20 14:13 | Outpatient (REF) | payer MEDICARE, OTHER, SELFPAY ==
[2023-03-20 14:22] LABS: Appearance Urine Clear; Color Urine Yellow; Glucose Urine UA Negative (Negative); Leukocyte Esterase Urine Trace (Negative); Nitrite Urine Negative (Negative); Specific Gravity - Urine 1.025 (1.005-1.025); UMIC TRIGGER UA YES; Urine Blood Negative (Negative); Urine Ketones Trace mg/dL (Negative); Urine Protein Negative (Neg-Trace)
[2023-03-20 14:29] LABS: Bacteria Urine None Seen (None Seen); Hyaline Casts Urine 0-2 /LPF (0-2); RBC Urine 0-2 /HPF (0-2); Squamous Epithelial Cell Urine 0-2 /HPF (0-2); WBC Urine 0-5 /HPF (0-5)
== END 2023-03-20 14:14 | disposition home or self-care (01) ==
LOC: HO.LNP 14:13
PROVIDERS: Visit Provider Internal Medicine
DX: R31.29 Other microscopic hematuria (principal)
CPT/HCPCS: 81001

== ENCOUNTER 2023-04-18 14:26 | Outpatient (REF) | payer MEDICARE, OTHER, SELFPAY ==
--- NOTE | ~2023-04-18 | MR_ITS ---
EXAMINATION: MR BRAIN WITHOUT CONTRAST CLINICAL INFORMATION: Dizziness, vertical, unsteady gait for one month. History of head trauma 2 years ago. COMPARISON: CT scan of brain on 04/26/2020 TECHNIQUE: MRI of the brain was obtained using routine sequences without contrast. FINDINGS: Ventricles, sulci and cisterns are prominent. No focal cerebral, brainstem or cerebellar lesions with abnormal signal can be seen. Diffusion weighted images show no abnormal regional decrease in diffusion. Normal flow voids of major intracerebral blood vessels are seen in the visualized portion. The pituitary gland is atrophic. Optic chiasm is not displaced. Cerebellar tonsils position is normal. MR/MR head/brain wo con IMPRESSION: 1. Mild age related cerebral atrophy. 2. No acute cerebral infarction is seen. 3. No evidence of space occupying mass lesion could be found. 4. No evidence of intracranial hemorrhage.
== END 2023-04-18 14:27 | disposition home or self-care (01) ==
LOC: HO.MRI 14:26
PROVIDERS: PCP Internal Medicine; Visit Provider Internal Medicine
DX: S09.90XS Unspecified injury of head, sequela (principal); X58.XXXS Exposure to other specified factors, sequela; R42 Dizziness and giddiness; R26.89 Other abnormalities of gait and mobility
CPT/HCPCS: 70551

== ENCOUNTER 2023-08-04 14:17 | Outpatient (AMB) | payer MEDICARE, OTHER, SELFPAY ==
--- NOTE | 2023-08-04 14:20 | A.OFFVIS_ITS ---
Vital Signs 3 08/04/23 14:26 Height 5 ft 8 in Weight 152 lb 8 oz BMI 23.2 BP 142/76 H Blood Pressure Location Lt brachial Position Sitting Pulse 103 H Intake Visit Reasons: 6 month follow up breast exam Intake Note: Patient is seen in office for 6 month follow up visit, breast exam. Patient c/o: denies any concerns mm:01/29/23 Stone Polisher Machine Required: No Propulsion Motor And Generator Repairer: Propulsion Motor And Generator Repairer Present Accompanied by: Self / Same As Patient Allergies Sulfa (Sulfonamide Antibiotics) [SULFA (SULFONAMIDE ANTIBIOTICS)] Allergy (Intermediate, Verified 08/04/23 14:25) RASH/SWELLING, rash indomethacin [INDOMETHACIN] Adverse Reaction (Severe, Verified 08/04/23 14:25) (FROM TIVOBEX) FELT OUT OF IT pneumococcal vaccine [PNEUMOCOCCAL VACCINE] Adverse Reaction (Unknown, Verified 08/04/23 14:25) SWELLING, REDNESS HPI Comments Details: 77-year-old female patient, returning for a follow-up breast examination. She was initially evaluated by Dr. Dietrich 04/26/2019 was noted to have a palpable density at the 11 o'clock position of the left breast measuring 1.5 cm approximately 4 cm from the nipple. Mammogram of 04/19/2019 and 04/21/2019 revealed a nodular asymmetry with radiating lines of the the upper inner quadrant left breast. Lesion was 0.9 cm in diameter and felt to be suspicious for malignancy. She underwent ultrasound-guided core biopsy on 04/26/2019. This revealed an infiltrating ductal carcinoma grade 1-2, ER positive, [place] negative, HER2 Homero equivocal. On 05/13/2019 she underwent a left breast lumpectomy with needle localization, sentinel node biopsy. Pathology revealed a 1.4 cm grade 2 infiltrating ductal carcinoma, ER positive, [place] negative, HER2 Homero negative, 0 of 1 lymph nodes with metastatic disease. She was evaluated by Dr. Adam and the patient declined antiestrogen therapy. She was evaluated by Dr. Jiang and underwent left breast radiation therapy and tolerated this well. Since her last visit she feels well and denies any ongoing symptoms. She notes a lump in the left axilla which she is calling fatty tissue. She reports some tenderness when this is palpated. Her most recent mammogram dated 01/29/2023 revealed no significant change from the prior mammogram and no mammographic evidence of malignancy (BI-RADS 2). She is scheduled for a follow-up mammogram on 01/05/2024. [facility] Medical History Infiltrating ductal carcinoma of left breast, estrogen receptor positive, stage 1 Surgical History History of lymph node excision History of lumpectomy of left breast History of hysterectomy Family History Mother Lung cancer Father Parkinson disease Social History Household Members: Spouse Housing: House Are you a primary animal care service worker to a significant other at home: No Do you presently have visiting nurse or other home services: No Alcohol intake: current Alcohol intake frequency: 0-2 drinks per day Alcohol type: hard liquor Patient Tobacco Use Status: Never used Tobacco service: No Current occupational status: retired Review of Systems Const Denies chills, Denies fever(s), Denies headache(s) and Denies poor appetite ENT Denies dizziness and Denies headache(s) Card Denies chest pain, Denies rapid heart rate, Denies palpitations and Denies slow heart rate Resp Denies chest congestion, Denies cough, Denies pain on inspiration and Denies wheezing GI Denies abdominal pain, Denies bloating, Denies change in stool character, Denies constipation, Denies diarrhea, Denies nausea, Denies vomiting and Denies hematemesis Musc Denies back pain, Denies arthralgias, Denies joint swelling and Denies numbness Skin/Breast Denies change in pigmentation, Denies erythema and Denies rash Neuro Denies dizziness, Denies headache(s) and Denies numbness Psych Denies anxiety and Denies depression Endo Denies palpitations Anibal/Lymph Denies easy bleeding, Denies easy bruising and Denies lymphadenopathy Aller/Immun Denies wheezing Physical Exam Const General: cooperative, comfortable and well developed Nutritional Appearance: well nourished Orientation/consciousness: patient oriented x3 Eyes Sclerae: sclerae normal EOM: EOMs intact bilaterally Neck Neck: Yes normal visual inspection Chest Other: Bilateral very dense breast tissue however no new skin changes, nipple discharge, nipple retraction, palpable mass, or enlarged lymph node is noted on either side. There is a well-healed incision in the upper outer portion of the left breast. There is tenderness around this incision and in the axilla. There is a new palpable fullness noted in the left axilla somewhat superior to the axillary incision Chest/axillae images: 2 1. Area of fullness left axilla Resp Effort & Inspection: normal respiratory effort, no cough, no respiratory distress and no stridor Cardio Jugular venous distension: no JVD Back/Spine/Pelvis Other: Soft tissue mass in the right flank at the posterior axillary line consistent with lipoma within the subcutaneous tissue. Lesion measures approximately 2 cm in diameter. No overlying skin changes are appreciated. Skin General skin exam: dry skin Rashes: no rashes Neuro Other: Mobility Assessment: 1. 3 meter assessment time (seconds):5 2. Gait observations: Normal balance and gait General: patient oriented x3 and no focal motor deficits Extrem General: Yes full ROM and Yes no clubbing, cyanosis or edema Psych Appearance: grossly normal Assessment & Plan Assessment & Plan (1) Infiltrating ductal carcinoma of left breast, estrogen receptor positive, stage 1: Code(s): C50.912 - Malignant neoplasm of unspecified site of left female breast; Z17.0 - Estrogen receptor positive status [ER+] Category: Medical (2) Dense breast tissue on mammogram: Code(s): R92.2 - Inconclusive mammogram Category: Medical Qualifiers: Laterality: bilateral Mammographic dense breast tissue type: h eterogeneous Qualified Code(s): R92.333 - Mammographic heterogeneous density, bilateral breasts Plan 77-year-old female patient with history of left breast lumpectomy and sentinel node biopsy for an infiltrating ductal carcinoma in the 11 o'clock position on 05/13/2019. Her last mammogram of 01/29/2023 revealed no suspicious findings in either breast (BI-RADS 2). On examination today, there is a fullness in the left axilla as noted above but no new suspicious findings were noted in either breast. I recommended further evaluation with an ultrasound of the left axilla. She will continue to undergo yearly mammograms and should return in 6 months for follow-up examination. Orders: Orders 2 MM screening mammo BI 01/05/24 C50.912 - Malignant neoplasm of unspecified site of left female breast, R92.333 - Mammographic heterogeneous density, bilateral breasts, Z17.0 - Estrogen receptor positive status [ER+] US breast LT limited Today C50.912 - Malignant neoplasm of unspecified site of left female breast, R92.333 - Mammographic heterogeneous density, bilateral breasts, Z17.0 - Estrogen receptor positive status [ER+] Coding Level of Care Code Est Pt Level 3 (01038) Diagnoses Infiltrating ductal carcinoma of left breast, estrogen receptor positive, stage 1 C50.912; Z17.0 Heterogeneously dense tissue of both breasts on mammography R92.333 Laterality: bilateral Mammographic dense breast tissue type: heterogeneous
[2023-08-04 14:26] VITALS: BP 142/76; PULSE 103; BMI 23.2
== END 2023-08-04 14:39 | disposition home or self-care (01) ==
LOC: HO.HGS 14:17
PROVIDERS: PCP Internal Medicine; Visit Provider Surgery
DX: C50.912 Malignant neoplasm of unspecified site of left female breast (principal); Z17.0 Estrogen receptor positive status [ER+]; R92.333 Mammographic heterogeneous density, bilateral breasts
CPT/HCPCS: 99213

== ENCOUNTER → 2023-08-04 14:17 | Outpatient (BNVA) | payer MEDICARE, OTHER, SELFPAY | PROVIDERS: PCP Internal Medicine; Visit Provider Surgery | DX: C50.212 Malignant neoplasm of upper-inner quadrant of left female breast (principal); Z17.0 Estrogen receptor positive status [ER+]; R92.333 Mammographic heterogeneous density, bilateral breasts | CPT/HCPCS: 99212 ==

== ENCOUNTER 2023-08-19 11:10 | Outpatient (REF) | payer MEDICARE, OTHER, SELFPAY ==
--- NOTE | ~2023-08-19 | US_ITS ---
EXAMINATION: MM DIAGNOSTIC DIGITAL BREAST TOMOSYNTHESIS, LEFT US BREAST LIMITED, LEFT MAMMOGRAPHY: CLINICAL INFORMATION: Patient with history of left breast CA 2019, treated with conservation therapy, now presenting with palpable fullness within left axilla. COMPARISON: Mammography: 01/29/2023, 01/19/2022, 01/29/2021, and dating back to 04/21/2019. MRI breast 02/12/2021. TECHNIQUE: Digital breast tomosynthesis is performed in both the craniocaudal and mediolateral oblique views along with computer-aided detection (CAD). Synthesized 2D images are generated from the tomosynthesis. In addition, left full-field 3-D exaggerated lateral cc view, and full-field 3-D left mediolateral views were also obtained. FINDINGS: There are scattered areas of fibroglandular density (ACR BI-RADS breast composition Category b). There are stable changes of lumpectomy and conservation treatment therapy in the left breast superiorly and slightly medially. No suspicious changes to the lumpectomy site. There are dystrophic appearing calcifications. There are no suspicious grouped pleomorphic calcifications. There are no masses, or developing areas of architectural distortion. The overall parenchymal pattern is unchanged. There is no mass or other abnormality in the left axilla. Slightly prominent fat pouch present. No skin abnormalities. ULTRASOUND: CLINICAL INFORMATION: As above. Left axilla swelling and discomfort. COMPARISON: No relevant prior. Left ultrasound 05/13/2019. TECHNIQUE: Targeted sonographic evaluation was performed using a high frequency linear transducer. Examination was targeted to the left axilla. Selected archived documentation. FINDINGS: LEFT AXILLA: There is no suspicious mass, abnormal lymph nodes, cystic abnormality, abnormal shadowing, or other abnormality noted in the left axilla. Mildly prominent left axillary fat pad is noted, benign. US/US breast LT limited mamm only IMPRESSION: -There are no suspicious findings in the left breast or left axilla to suggest malignancy. -Mildly prominent left axillary fat pad is present. -Stable post therapeutic changes in the left breast as described, no changes. -Recommend clinical follow-up and management of the patient's complaints. Otherwise, recommend returning to routine annual screening mammography. OVERALL ASSESSMENT: Mammography: BI-RADS 2 - Benign Findings Ultrasound: BI-RADS 2 - Benign Findings RECOMMENDATION: 1. Patient should be managed based on the clinical impression. 2. Otherwise, routine annual screening mammography. This patient's information was entered into a reminder system with a target due date for their next mammogram.
== END 2023-08-19 11:11 | disposition home or self-care (01) ==
LOC: HO.MAMMO 11:10
PROVIDERS: PCP Internal Medicine; Visit Provider Surgery
DX: C50.912 Malignant neoplasm of unspecified site of left female breast (principal); Z17.0 Estrogen receptor positive status [ER+]; R92.333 Mammographic heterogeneous density, bilateral breasts
CPT/HCPCS: 76642; 77061; 77065

== ENCOUNTER → 2023-08-19 11:30 | Outpatient (BNV) | payer MEDICARE, OTHER, SELFPAY | PROVIDERS: PCP Internal Medicine; Visit Provider Radiology Diagnostic Radiology | DX: R92.1 Mammographic calcification found on diagnostic imaging of breast (principal); N63.32 Unspecified lump in axillary tail of the left breast | CPT/HCPCS: 76642; 77065; G0279 ==

== ENCOUNTER 2023-09-08 11:45 | Outpatient (AMB) | payer MEDICARE, OTHER, SELFPAY ==
[2023-09-08 11:46] VITALS: BMI 23.3
--- NOTE | 2023-09-08 11:46 | A.OFFVIS_ITS ---
Vital Signs 09/08/23 11:46 Height 5 ft 8 in Weight 153 lb BMI 23.3 Intake Visit Reasons: mammo and US follow up Intake Note: This patient presents for a mammo and US follow-up. Patient c/o; reports no complaints. Senior Pharmacy Technician Required: No Accompanied by: Self / Same As Patient Allergies Sulfa (Sulfonamide Antibiotics) [SULFA (SULFONAMIDE ANTIBIOTICS)] Allergy (Intermediate, Verified 09/08/23 11:51) RASH/SWELLING, rash indomethacin [INDOMETHACIN] Adverse Reaction (Severe, Verified 09/08/23 11:51) (FROM TIVOBEX) FELT OUT OF IT pneumococcal vaccine [PNEUMOCOCCAL VACCINE] Adverse Reaction (Unknown, Verified 09/08/23 11:51) SWELLING, REDNESS Medication List - Last Reconciled 09/08/23 by Jesus Browning MD cholecalciferol (vitamin D3) 50 mcg PO DAILY magnesium hydroxide 5 mL PO DAILY PRN HPI Comments Details: 77-year-old female patient, returning to review her recent mammogram and ultrasound to evaluate swelling in the left axilla. She was initially evaluated by Dr. Dietrich 04/26/2019 was noted to have a palpable density at the 11 o'clock position of the left breast measuring 1.5 cm approximately 4 cm from the nipple. Mammogram of 04/19/2019 and 04/21/2019 revealed a nodular asymmetry with radiating lines of the the upper inner quadrant left breast. Lesion was 0.9 cm in diameter and felt to be suspicious for malignancy. She underwent ultrasound- guided core biopsy on 04/26/2019. This revealed an infiltrating ductal carcinoma grade 1-2, ER positive, [place] negative, HER2 Homero equivocal. On 05/13/2019 she underwent a left breast lumpectomy with needle localization, sentinel node biopsy. Pathology revealed a 1.4 cm grade 2 infiltrating ductal carcinoma, ER positive, [place] negative, HER2 Homero negative, 0 of 1 lymph nodes with metastatic disease. She was evaluated by Dr. Adam and the patient declined antiestrogen therapy. She was evaluated by Dr. Jiang and underwent left breast radiation therapy and tolerated this well. She notes a lump in the left axilla which she is calling fatty tissue. She reports some tenderness when this is palpated. A diagnostic mammogram and ultrasound of the left breast was performed on 08/19/2023. This revealed only benign findings in the left axilla with no suspicious changes (BI-RADS 2). Since her last visit she denies any new breast symptoms. [facility] Medical History Infiltrating ductal carcinoma of left breast, estrogen receptor positive, stage 1 Surgical History History of lymph node excision History of lumpectomy of left breast History of hysterectomy Family History Mother Lung cancer Father Parkinson disease Social History Household Members: Spouse Housing: House Are you a primary auto care center manager to a significant other at home: No Do you presently have visiting nurse or other home services: No Alcohol intake: current Alcohol intake frequency: 0-2 drinks per day Alcohol type: hard liquor Patient Tobacco Use Status: Never used Tobacco service: No Current occupational status: retired Physical Exam Const General: cooperative, comfortable and well developed Nutritional Appearance: well nourished Orientation/consciousness: patient oriented x3 Eyes Sclerae: sclerae normal EOM: EOMs intact bilaterally Neck Neck: Yes normal visual inspection Chest Other: Exam deferred Resp Effort & Inspection: normal respiratory effort, no cough, no respiratory distress and no stridor Cardio Jugular venous distension: no JVD Back/Spine/Pelvis Other: Soft tissue mass in the right flank at the posterior axillary line consistent with lipoma within the subcutaneous tissue. Lesion measures approximately 2 cm in diameter. No overlying skin changes are appreciated. Skin General skin exam: dry skin Rashes: no rashes Neuro Other: Mobility Assessment: 1. 3 meter assessment time (seconds):5 2. Gait observations: Normal balance and gait General: patient oriented x3 and no focal motor deficits Extrem General: Yes full ROM and Yes no clubbing, cyanosis or edema Psych Appearance: grossly normal Assessment & Plan Assessment & Plan (1) Infiltrating ductal carcinoma of left breast, estrogen receptor positive, stage 1: Code(s): C50.912 - Malignant neoplasm of unspecified site of left female breast; Z17.0 - Estrogen receptor positive status [ER+] Category: Medical (2) Dense breast tissue on mammogram: Code(s): R92.2 - Inconclusive mammogram Category: Medical Qualifiers: Mammographic dense breast tissue type: heterogeneous Laterality: bilateral Qualified Code(s): R92.333 - Mammographic heterogeneous density, bilateral breasts Plan 77-year-old female patient with history of left breast lumpectomy and sentinel node biopsy for an infiltrating ductal carcinoma in the 11 o'clock position on 05/13/2019. She returns today to review her recent diagnostic studies of the left breast which revealed only fatty tissue in the left axilla. No suspicious changes are identified. A copy of the report was provided to the patient. She will return in 6 months for follow-up breast examination. She is welcome to ca ll sooner for any new concerns. Coding Level of Care Code Est Pt Level 3 (51033) Diagnoses Infiltrating ductal carcinoma of left breast, estrogen receptor positive, stage 1 C50.912; Z17.0 Heterogeneously dense tissue of both breasts on mammography R92.333 Mammographic dense breast tissue type: heterogeneous Laterality: bilateral
== END 2023-09-08 11:55 | disposition home or self-care (01) ==
PROVIDERS: PCP Internal Medicine; Visit Provider Surgery
DX: C50.912 Malignant neoplasm of unspecified site of left female breast (principal); R92.333 Mammographic heterogeneous density, bilateral breasts; Z17.0 Estrogen receptor positive status [ER+]
CPT/HCPCS: 99213

== ENCOUNTER → 2023-09-08 11:45 | Outpatient (BNVA) | payer MEDICARE, OTHER, SELFPAY | PROVIDERS: PCP Internal Medicine; Visit Provider Surgery | DX: R92.333 Mammographic heterogeneous density, bilateral breasts (principal); Z85.3 Personal history of malignant neoplasm of breast | CPT/HCPCS: 99212 ==

== ENCOUNTER → 2024-01-05 11:15 | Outpatient (BNV) | payer MEDICARE, OTHER, SELFPAY | PROVIDERS: PCP Internal Medicine; Visit Provider Internal Medicine | DX: Z12.31 Encounter for screening mammogram for malignant neoplasm of breast (principal) | CPT/HCPCS: 77063; 77067 ==

== ENCOUNTER 2024-01-05 11:22 | Outpatient (REF) | payer MEDICARE, OTHER, SELFPAY ==
--- NOTE | ~2024-01-05 | MM_ITS ---
EXAMINATION: MM SCREENING DIGITAL BREAST TOMOSYNTHESIS, BILATERAL CLINICAL INFORMATION: Screening. Asymptomatic. COMPARISON: Mammography: Comparison is made with available priors TECHNIQUE: Digital breast mammography with tomosynthesis is performed in both the craniocaudal and mediolateral oblique views along with computer-aided detection (CAD). FINDINGS: The breasts are extremely dense, which lowers the sensitivity of mammography (ACR BI-RADS breast composition Category d). Left lumpectomy changes are stable. There are no significant masses, abnormal calcifications, or other abnormalities. MM/MM tomosynthesis screening BI IMPRESSION: No mammographic evidence of malignancy. ASSESSMENT: BI-RADS BI-RADS 2 - Benign Findings RECOMMENDATION: Routine annual mammography screening. 1 year F/U This examination should not preclude the clinical evaluation of a suspicious palpable abnormality. This patient's information was entered into a reminder system with a target due date for their next mammogram. Electronically signed by: Jenny Irvin DO 01/05/2024 03:01 PM RUSSELL
== END 2024-01-05 11:23 | disposition home or self-care (01) ==
LOC: HO.MAMMO 11:22
PROVIDERS: PCP Internal Medicine; Visit Provider Internal Medicine
DX: Z12.31 Encounter for screening mammogram for malignant neoplasm of breast (principal)
CPT/HCPCS: 77063; 77067

== ENCOUNTER 2024-02-04 09:03 | Outpatient (AMB) | payer MEDICARE, OTHER, SELFPAY ==
--- NOTE | 2024-02-04 09:03 | MHC.OFFVIS ---
Vital Signs 02/04/24 09:09 Height 5 ft 8 in Weight 154 lb BMI 23.4 BP 151/73 H Blood Pressure Location Rt brachial Position Sitting Pulse 83 Intake Visit Reasons: 6 month follow up breast exam Intake Note: Patient is seen in office for 6 month follow up visit, breast exam. Pt c/o:no concerns. Denies breast rash, nipple discharge, pain. Reports no changes in medical hx. mm:01/05/24 us:08/19/23 Director Of Development Required: No Accompanied by: Self / Same As Patient Allergies Sulfa (Sulfonamide Antibiotics) [SULFA (SULFONAMIDE ANTIBIOTICS)] Allergy (Intermediate, Verified 02/04/24 09:09) RASH/SWELLING, rash indomethacin [INDOMETHACIN] Adverse Reaction (Severe, Verified 02/04/24 09:09) (FROM TIVOBEX) FELT OUT OF IT pneumococcal vaccine [PNEUMOCOCCAL VACCINE] Adverse Reaction (Unknown, Verified 02/04/24 09:09) SWELLING, REDNESS Medication List - Last Reconciled 02/04/24 by Jesus Browning MD cholecalciferol (vitamin D3) 50 mcg PO DAILY magnesium hydroxide 5 mL PO DAILY PRN HPI Comments Details: 78-year-old female patient, returning to review her recent mammogram and ultrasound to evaluate swelling in the left axilla. She was initially evaluated by Dr. Dietrich 04/26/2019 was noted to have a palpable density at the 11 o'clock position of the left breast measuring 1.5 cm approximately 4 cm from the nipple. Mammogram of 04/19/2019 and 04/21/2019 revealed a nodular asymmetry with radiating lines of the the upper inner quadrant left breast. Lesion was 0.9 cm in diameter and felt to be suspicious for malignancy. She underwent ultrasound-guided core biopsy on 04/26/2019. This revealed an infiltrating ductal carcinoma grade 1-2, ER positive, [place] negative, HER2 Homero equivocal. On 05/13/2019 she underwent a left breast lumpectomy with needle localization, sentinel node biopsy. Pathology revealed a 1.4 cm grade 2 infiltrating ductal carcinoma, ER positive, [place] negative, HER2 Homero negative, 0 of 1 lymph nodes with metastatic disease. She was evaluated by Dr. Adam and the patient declined antiestrogen therapy. She was evaluated by Dr. Jiang and underwent left breast radiation therapy and tolerated this well. She notes a lump in the left axilla which she is calling fatty tissue. She reports some tenderness when this is palpated. A diagnostic mammogram and ultrasound of the left breast was performed on 08/19/2023. This revealed only benign findings in the left axilla with no suspicious changes (BI-RADS 2). Her most recent mammogram of 01/05/2024 revealed no mammographic evidence of malignancy (BI-RADS 2). Since her last visit she denies any new breast symptoms. [facility] Medical History Infiltrating ductal carcinoma of left breast, estrogen receptor positive, stage 1 Surgical History History of lymph node excision History of lumpectomy of left breast History of hysterectomy Family History Mother Lung cancer Father Parkinson disease Social History Household Members: Spouse Housing: House Are you a primary medicare insurance specialist to a significant other at home: No Do you presently have visiting nurse or other home services: No Alcohol intake: current Alcohol intake frequency: 0-2 drinks per day Alcohol type: hard liquor Patient Tobacco Use Status: Never used Tobacco service: No Current occupational status: retired Review of Systems Const All systems reviewed & are unremarkable except as noted in HPI and below Denies chills, Denies fever(s), Denies headache(s) and Denies poor appetite ENT Denies dizziness and Denies headache(s) Card Denies chest pain, Denies rapid heart rate, Denies palpitations and Denies slow heart rate Resp Denies chest congestion, Denies cough, Denies pain on inspiration and Denies wheezing GI Denies abdominal pain, Denies bloating, Denies change in stool character, Denies constipation, Denies diarrhea, Denies nausea, Denies vomiting and Denies hematemesis Musc Denies back pain, Denies arthralgias, Denies joint swelling and Denies numbness Skin/Breast Denies change in pigmentation, Denies erythema and Denies rash Neuro Denies dizziness, Denies headache(s) and Denies numbness Psych Denies anxiety and Denies depression Endo Denies palpitations Anibal/Lymph Denies easy bleeding, Denies easy bruising and Denies lymphadenopathy Aller/Immun Denies wheezing Physical Exam Vital Signs: Last Vital Signs Pulse 83 02/04/24 09:09 BP 151/73 H 02/04/24 09:09 BMI result Body Mass Index 23.4 Const General: cooperative, comfortable and well developed Nutritional Appearance: well nourished Orientation/consciousness: patient oriented x3 Eyes Sclerae: sclerae normal EOM: EOMs intact bilaterally Neck Neck: Yes normal visual inspection Chest Other: Bilateral very dense breast tissue however no new skin changes, nipple discharge, nipple retraction, palpable mass, or enlarged lymph node is noted on either side. There is a well-healed incision in the upper outer portion of the left breast. There is tenderness around this incision and in the axilla. There is a new palpable fullness noted in the left axilla somewhat superior to the axillary incision Chest/axillae images: 1. 2. Resp Effort & Inspection: normal respiratory effort, no cough, no respiratory distress and no stridor Cardio Jugular venous distension: no JVD Back/Spine/Pelvis Other: Soft tissue mass in the right flank at the posterior axillary line consistent with lipoma within the subcutaneous tissue. Lesion measures approximately 2 cm in diameter. No overlying skin changes are appreciated. Skin General skin exam: dry skin Rashes: no rashes Neuro Other: Mobility Assessment: 1. 3 meter assessment time (seconds):5 2. Gait observations: Normal balance and gait General: patient oriented x3 and no focal motor deficits Extrem General: Yes full ROM and Yes no clubbing, cyanosis or edema Psych Appearance: grossly normal Assessment & Plan Assessment & Plan (1) Infiltrating ductal carcinoma of left breast, estrogen receptor positive, stage 1: Code(s): C50.912 - Malignant neoplasm of unspecified site of left female breast; Z17.0 - Estrogen receptor positive status [ER+] Category: Medical (2) Dense breast tissue on mammogram: Code(s): R92.2 - Inconclusive mammogram Category: Medical Qualifiers: Laterality: bilateral Mammographic dense breast tissue type: heterogeneous Qualified Code(s): R92.333 - Mammographic heterogeneous density, bilateral breasts Plan 77-year-old female patient with history of left breast lumpectomy and sentinel node biopsy for an infiltrating ductal carcinoma in the 11 o'clock position on 05/13/2019. She denies any new breast symptoms and generally feels well. Her most recent mammogram dated 01/05/2024 revealed no mammographic evidence of malignancy (BI-RADS 2). Examination today revealed no significant changes on either side. She does have tenderness still in the left breast post therapy. I recommended follow-up examination in 6 months, sooner p.r.n.. Coding Level of Care Code Est Pt Level 3 (77870) Complex EM visit Add On G2211 Diagnoses Infiltrating ductal carcinoma of left breast, estrogen receptor positive, stage 1 C50.912; Z17.0 Heterogeneously dense tissue of both breasts on mammography R92.333 Laterality: bilateral Mammographic dense breast tissue type: heterogeneous
[2024-02-04 09:09] VITALS: BP 151/73; PULSE 83; BMI 23.4
--- OUTSIDE RECORDS SUMMARY | 2024-02-10 00:46 | XMS_ITS ---
Author Organization [facility] Address [address] [place] [phone] Care Team Providers Care Podiatry Assistant Name Role Phone Peter Bernabe MD Primary Care Provider Zak Castro Unavailable [phone] REASON FOR VISIT [facility] Encounters Encounter Location Date Provider Diagnosis [facility] [address] [place] [phone] 12/08/2023 Zak Newman PLAN OF TREATMENT Next Appt Details Provider Name:Zak Newman , 04/04/2024 01:20:00 PM, [address] [place] [address] , [place], [place], [phone],
--- OUTSIDE RECORDS SUMMARY | 2024-02-10 00:46 | XMS_ITS ---
Author Organization [facility] Address [address] [place] [phone] Care Team Providers Care Heavy Equipment Engine Mechanic Name Role Phone Peter Bernabe MD Primary Care Provider Zak Castro Unavailable [phone] ALLERGIES Allergen (clinical drug ingredient) Drug/Non Drug Allergy documented on EMR Reaction Allergy Type Onset Date Status Substance with sulfonamide structure and antibacterial mechanism of action (substance) Sulfa Antibiotics Unknown Drug Allergy Active REASON FOR VISIT Patient presents today for a colon screening MEDICATIONS Medication SIG (Take, Route, Frequency, Duration) Notes Start Date End Date Status Zinc Active Vitamin D Active SOCIAL HISTORY Tobacco Use: Social History Observation Description Date Details (start date - stop date) Former Smoker NA - NA Sex Assigned At : Social History Observation Description Sex Assigned At Unknown Tobacco Use/Smoking Question Answer Notes Patient is a former smoker How long has it been since you last smoked? > 10 years Alcohol Screen Question Answer Notes Did you have a drink contain ing alcohol in the past year? Yes How often did you have a dri nk containing alcohol in the past year? 2 to 4 times a month (2 points) How many drinks did you have on a typical day when you were drinking in the past year? 1 or 2 drinks (0 point) How often did you have 6 or more drinks on one occasion in the past year? Never (0 point) Points 2 Interpretation Negative PROBLEMS Problem Type ICD Code Onset Dates Problem Status W/U Status Risk SNOMED Code Notes Problem Colon cancer screening (Z12.11) Active confirmed Colon cancer screening (300370021) Problem Encounter for other preprocedural examination (Z01.818) Active confirmed Pre-procedure evaluation check (210588825) VITAL SIGNS BMI 22.80 kg/m2 01/20/2024 Blood pressure systolic 00 mm Hg 01/20/20 24 Blood pressure diastolic 00 mm Hg 024 Height 5 ft 8 in in 01/20/2024 Weight 150 lbs 01/20/2024 Encounters Encounter Location Date Provider Diagnosis [facility] [address] [place] [address] 01/20/2024 Zak Newman Colon cancer screeni ng Z12.11 and Encounter for other preprocedural examination Z01.818 ASSESSMENTS Encounter Date Diagnosis Assessment Notes Treatment Notes Treatment Clinical Notes 01/20/2024 Colon cancer screening (ICD-10 - Z12.11) 01/20/2024 Encounter for other preprocedural examination (ICD-10 - Z01.818) PLAN OF TREATMENT Future Test Test Name Order Date COLONOSCOPY 01/20/2024 Next Appt Details Follow Up: prn, Reason: Provider Name:Zak Newman , 04/04/2024 01:20:00 PM, [address] [place] [address] , [place], [place], [phone], Progress Notes * Examination Category Sub-Category Detail Notes General Examination GENERAL APPEARANCE: pleasant , well nourished, well developed, in no acute distress HEAD: EYES: sclera non-icteric EARS: NOSE: THROAT: NECK/THYROID: no cervical lymphade nopathy, neck supple HEART: S1, S2 normal CHEST: LUNGS: clear to auscultatio n bilaterally ABDOMEN: normal bowel sounds, no guarding or rigidity, no guarding or rigidity, no masses palpable, soft, nontender, nondistended NEUROLOGIC: alert and oriented SKIN: nonjaundiced, no spi robert angiomata EXTREMITIES: no edema PERIPHERAL PULSES: BACK: BREASTS: MUSCULOSKELETAL: MALE GENITOURINARY: LYMPH NODES: RECTAL EXAM: FEMALE GENITOURINARY: ORAL CAVITY: mucosa moist
--- OUTSIDE RECORDS SUMMARY | 2024-02-10 00:46 | XMS_ITS | Patient Health Record ---
Author Organization [facility] Address [address] [place] [phone] Care Team Providers Care Etch Operator Semiconductor Wafers Name Role Phone Peter Bernabe MD Primary Care Provider Zak Castro [phone] ALLERGIES Allergen (clinical drug ingredient) Drug/Non Drug Allergy documented on EMR Reaction Allergy Type Onset Date Status Substance with sulfonamide structure and antibacterial mechanism of action (substance) Sulfa Antibiotics Unknown Drug Allergy Active REASON FOR REFERRAL No Information MEDICATIONS Medication SIG (Take, Route, Frequency, Duration) [...] screening (Z12.11) Active confirmed Colon cancer screening (158639260) Problem Encounter for other preprocedural examination (Z01.818) Active confirmed Pre-procedure evaluation check (982385917) VITAL SIGNS Blood pressure diastolic 00 mm Hg 01/20/2024 Height 5 ft 8 in in 01/20/2024 Blood pressure systolic 00 mm Hg 01/20/2024 Weight 150 lbs 01/20/2024 BMI 22.80 kg/m2 01/20/2024 Encounters Encounter Location Date Provider Diagnosis [facility] [address] [place] [phone] 01/20/2024 Zak Newman Colon cancer screeni ng Z12.11 and Encounter for other preprocedural examination Z01.818 [facility] [address] [place] [phone] 12/08/2023 Zak Newman [facility] [address] [place] [phone] 01/20/2024 Zak Newman ASSESSMENTS Encounter Date Diagnosis Assessment Notes Treatment Notes Treatment Clinical Notes 01/20/2024 Colon cancer screening (ICD-10 - Z12.11) 01/20/2024 Encounter for other preprocedural examination (ICD-10 - Z01.818) PLAN OF TREATMENT Future Test Test Name Order Date COLONOSCOPY 01/20/2024 Next Appt Details Provider Name:Zak Newman , 04/04/2024 01:20:00 PM, [address] , [place], [place], [phone], Insurance Providers Payer Name Payer Address Payer Phone Subscriber Number Group Number Insured Name Patient Relationship to Insured Coverage Start Date Coverage End Date MEDICARE OF [place] [address] [place] [address] [id number] MARILEE VILLEGAS Self - patient is the insured [employer] ([employer]) [address] [place] [address] [phone] [id number] MARILEE VILLEGAS Self - patient is the insured MEDICAL (GENERAL) HISTORY Medical History History ICD Code Denies PR,DM,CVA,Lung disease,renal dise ase Breast cancer on the left-surgery and XR T in 2018 Negative colonoscopy [address] Kennedy s Surgical History Surgery Date(Month/Year) Left lumpectomy for breast cancer with X RT as above ZAYRA
--- OUTSIDE RECORDS SUMMARY | 2024-02-10 00:47 | XMS_ITS ---
Author Organization Peter Bernabe MD Address [address] [place], [place] [phone] Care Team Providers Care Automatic Furnace Operator Name Role Phone Peter Bernabe Primary Care Provider ALLERGIES Allergen (clinical drug ingredient) Drug/Non Drug Allergy documented on EMR Reaction Allergy Type Onset Date Status azithromycin Zithromax Z-Bryce rash Drug Allergy Active sulfamethoxazole / trimethoprim Bactrim DS rash Drug Allergy Active oxymetazoline 12 Hour Nasal Unknown Drug Allergy Active indomethacin Indomethacin dizziness and confusion Drug Allergy Active REASON FOR VISIT Vertigo since cerumen removal a few weeks ago, No Covid symptoms MEDICATIONS Medication SIG (Take, Route, Frequency, Duration) Notes Start Date End Date Status Valtrex 1 GM 1 tablet Orally thre e times a day for 5 days 12/22/2019 Not-Takin g Benadryl Allergy 25 MG 1 tablet at bedti me as needed Orally Once a day for 30 day(s) Not-Taking Motrin IB 200 MG 1 tablet with food o r milk as needed Orally Three times a day Not-Taking Magnesium 400 MG 1 tablet with a meal Orally Once a day Active Zinc 50 MG 1 tablet Orally Once a day Active Vitamin D (Cholecalciferol) 1000 UNIT 1 capsule Orally Once a day 02/05/2018 Active Ambien 5 MG 1 tablet at bedtime Orally Once a day for 30 days 06/08/2020 Not-Taking VITAL SIGNS Blood pressure systolic 148 mm Hg 04/16/19 24 Blood pressure diastolic 80 mm Hg 024 Height 66.25 in 04/16/2023 standing dropped to 140/90 Encounters Encounter Location Date Provider Diagnosis Peter Bernabe MD [address] [place] [phone] 04/16/2023 Peter Bernabe Injury of head, sequela S09.90XS and Light-headed feeling R42 ASSESSMENTS Encounter Date Diagnosis Assessment Notes Treatment Notes Treatment Clinical Notes 04/16/2023 Injury of head, sequela (ICD-10 - S09.90XS) pending diagnostic testing 04/16/2023 Light-headed feeling (ICD-10 - R42) she had this feeling after her head injury 2 years ago so am concerned that there could be some sequalae from that. her ear exam was completely normal/ did orthostatic bp reading and there was an insignifcant change PLAN OF TREATMENT Treatment Notes Assessment Notes Injury of head, sequela pending diagnost ic testing Light-headed feeling she had this feelin g after her head injury 2 years ago so am concerned that there could be some sequalae from that. her ear exam was completely normal/ did orthostatic bp reading and there was an insignifcant change Pending Test Test Name Order Date MRI BRAIN NO CONTRAST 04/16/2023 Next Appt Details Follow Up: after mri, Reason : Provider Name:Peter catherine, 03/17/2024 08:00:00 AM, [address] [place] [address], [phone], Provider Name:Peter catherine, 03/24/2024 11:00:00 AM, [address] [place] [address], [phone], Progress Notes * Examination Category Sub-Category Detail Notes General Examination GENERAL APPEARANCE: alert, w ell hydrated, in no distress , female HEAD: normocephalic EARS: BOTH EARS, normal HEART: regular rate and rhy thm, no murmurs, rubs, gallops LUNGS: no wheezes, rales, r honchi, good air movement, clear to auscultation bilaterally SKIN: good turgor
--- OUTSIDE RECORDS SUMMARY | 2024-02-10 00:47 | XMS_ITS | Patient Health Record ---
[facility] Address [address] [place] [address] Care Team Providers Care Cross Tie Cutter Name Role Phone Peter Bernabe MD Primary Care Provider Chirag Bryant Unavailable [phone] Allergies Allergen (clinical drug ingredient) Drug/Non Drug Allergy documented on EMR Reaction Allergy Type Onset Date Status sulfamethoxazole / trimethoprim Bactrim Unknown Drug Allergy Active Reason For Referral No Information Social History Tobacco Use: Social History Observation Description Date Details (start date - stop date) Former Smoker NA - NA Tobacco Use/Smoking Question Answer Notes Are you a: former smoker Additional Findings: Tobacco Non-User Current no n-smoker Alcohol Screen Question Answer Notes Did you have a drink containing alcohol in the p ast year? Yes Points 0 Interpretation Negative Problems Problem Type SNOMED Code ICD Code Onset Dates Problem Status W/U Status Risk Notes Problem Acquired hallux valgus (21540764) Hallux valgus (acquired), left foot (M20.12) Active confirmed Problem Acquired hallux valgus (89686803) Hallux valgus (acquired), right foot (M20.11) Active confirmed Problem Acquired hammer toe of right foot ([id number] 105) Other hammer toe(s) (acquired), right foot (M20.41) Active confirmed Plan Of Treatment Pending Test Test Name Order Date X ray : Foot, left 3V 08/18/2018 X ray : Foot, right 3V 08/18/2018 Insurance Providers Payer Name Payer Address Payer Phone Subscriber Number Group Number Insured Name Patient Relationship to Insured Coverage Start Date Coverage End Date Medicare National [employer]t [employer] [address] [place] [address] [id number] Izabel Peralta Self - patient is the insured [employer]) [address] [place] [address] [id number] Fabian Izabel Self - patient is the insured Medical (General) History Medical History History ICD Code Back,Hip,and Knee pain Cataracts Measles Mumps Joint implants/screws Surgical History Surgery Date(Month/Year) Hysterectomy 2000
--- OUTSIDE RECORDS SUMMARY | 2024-02-10 00:47 | XMS_ITS ---
Author Organization Peter Bernabe MD Address [address] [place], [place] [phone] Care Team Providers Care Wildlife Enforcement Major Name Role Phone Peter Bernabe Primary Care Provider ALLERGIES Allergen (clinical drug ingredient) Drug/Non Drug Allergy documented on EMR Reaction Allergy Type Onset Date Status azithromycin Zithromax Z-Bryce rash Drug Allergy Active sulfamethoxazole / trimethoprim Bactrim DS rash Drug Allergy Active oxymetazoline 12 Hour Nasal Unknown Drug Allergy Active indomethacin Indomethacin dizziness and confusion Drug Allergy Active REASON FOR REFERRAL Reason SCREEN FOR COLON CAN CER Diagnosis [...] Date 01/20/2024 REASON FOR VISIT 6 month MEDICATIONS Medication SIG (Take, Route, Frequency, Duration) [...] for 30 days 06/08/2020 Not-Taking VITAL SIGNS BMI 24.83 kg/m2 09/18/2023 Blood pressure systolic 132 mm Hg 09/18/19 Blood pressure diastolic 64 mm Hg 024 Height 66.25 in 09/18/2023 Weight 155 lbs 09/18/2023 weight is up 2 pounds since 03-20-23 Encounters Encounter Location Date Provider Diagnosis Peter Bernabe MD [address] [place] [address] [place] [phone] 09/18/2023 Peter Bernabe History of breast cancer Z85.3 and History of colonoscopy Z98.890 ASSESSMENTS Encounter Date Diagnosis Assessment Notes Treatment Notes Treatment Clinical Notes 09/18/2023 History of breast cancer (ICD-10 - Z85.3) 09/18/2023 History of colonoscopy (ICD-10 - Z98.890) referral to dr servin for colonoscopy/ REFERRAL MADE FOR DR SERVIN, WILL FAX WHEN NOTE LOCKED. PLAN OF TREATMENT Treatment Notes Assessment Notes History of colonoscopy referral to dr gloria jules for colonoscopy/ REFERRAL MADE FOR DR SERVIN, WILL FAX WHEN NOTE LOCKED. Referrals Referral Date Details 01/20/2024 01/20/2024, SCREEN F OR COLON CANCER, Zak Servin Next Appt Details Provider Name:Peter catherine, 03/17/2024 08:00:00 AM, [address] [place] [address], [address] [facility], [place], [place], [phone], Provider Name:Peter catherine, 03/24/2024 11:00:00 AM, [address] [place] [address], [place] [address], [place], [place], [phone], Progress Notes * Examination Category Sub-Category Detail [...]
--- OUTSIDE RECORDS SUMMARY | 2024-02-10 00:47 | XMS_ITS | Patient Health Record ---
Author Organization Peter Bernabe MD Address [address] [place], [place] [id number] Care Team Providers Care Skip Pitman Name Role Phone Peter Bernabe Primary Care Provider [phone] ALLERGIES Allergen (clinical drug ingredient) Drug/Non Drug Allergy documented on EMR Reaction Allergy Type Onset Date Status azithromycin Zithromax Z-Bryce rash Drug Allergy Active indomethacin Indomethacin dizziness and confusion Drug Allergy Active sulfamethoxazole / trimethoprim Bactrim DS rash Drug Allergy Active oxymetazoline 12 Hour Nasal Unknown Drug Allergy Active RESULTS Component Value Reference Range Notes Rehana Prado Reviewed date:03/06/2023 11:39:03 AM Interpretation: Performing Lab:[facility], [address] [place] [phone] Notes/Report: Rehana Prado See Note Specimen held untested for 24 hours; Call to request Chemistry testing. Complete Blood Count Auto Di ff Reviewed date:03/07/2023 05:26:42 PM Interpretation: Performing Lab:[facility], [address] [place] [phone] Notes/Report: White Blood Count 5.0 4.8-10.8 X10*3/uL Red Blood Count 4.73 4.20-5.50 X10*6/uL Hemoglobin 13.6 12.0-16.0 g/dl Hematocrit 42.2 37.0-47.0 % Mean Corpuscular Volume 89.2 80.0-98.0 fL Mean Corpuscular Hemoglobin 28.8 27.0-33.0 pg Mean Corpuscular HGB Conc 32.2 31.0-35.0 g/dl Red Cell Distribution Width 12.4 11.0-16.0 % Platelet Count 246 160-400 X10*3/uL Mean Platelet Volume 10.0 9.4-12.3 fL Neutrophils Percent Auto 58.3 45-73 % Imm Gran Pct Auto 0.2 0.0-0.4 % Lymphocytes Percent Auto 26.7 20-40 % Monocytes Percent Auto 9.4 2-11 % Eosinophils Percent Auto 4.6 0-4 % Basophils Percent Auto 0.8 0-2 % NRBC Pct Auto 0.0 0.0-0.2 /100WBC Neutrophils Absolute Auto 2.9 2.0-8.3 x10*3/u L Imm Gran Abs Auto 0.01 0.00-0.03 X10*3/uL Lymphocytes Absolute Auto 1.3 1.2-4.9 X10*3/u L Monocytes Absolute Auto 0.5 0.1-1.2 X10*3/uL Eosinophils Absolute Auto 0.2 0.0-0.4 X10*3/u L Basophils Absolute Auto 0.0 0.0-0.2 X10*3/uL NRBC Abs Auto 0.000 0.0-0.012 X10*3/uL Comprehensive [place]. Panel Fa st Reviewed date:03/07/2023 05:26:23 PM Interpretation: Performing Lab:[facility], [address] [place] [phone] Notes/Report: Sodium 141 135-145 mmol/L Potassium 4.1 3.3-5.1 mmol/L Chloride 105 96-108 mmol/L Carbon Dioxide 30 22-29 mmol/L Anion Gap 10 12-20 Blood Urea Nitrogen 18 9-16 mg/dL Creatinine 0.77 0.5-1.4 mg/dL Estimated Glomerular Filt Rate > 60 NOTE: For -[place] individuals, multiply the result by 1.210. Chronic Kidney Disease: Estimated GFR < 60 mL/min/1.73m2 Severe Kidney Disease: Estimated GFR < 15 mL/min/1.73m2 Glucose Fasting 102 60-99 mg/dL A fasting glucose from 100-125 mg/dl is considered impaired (pre-diabetes). Calcium 9.3 8.4-10.2 mg/dL Bilirubin Total 0.6 0.0-1.0 mg/dL Aspartate Amino Transferase 17 5-31 U/L Alanine Aminotransferase 10 0-31 U/L Total Protein 6.7 6.5-8.0 g/dL Albumin Level 4.0 3.5-5.0 g/dL Alkaline Phosphatase 82 39-117 U/L Lipid Panel Reviewed date:03/06/2023 12:29:51 PM Interpretation: Performing Lab:[address] [phone] Notes/Report: Triglycerides 58 <150 mg/dL Desirable Triglyceride: less than 150 mg/dL Borderline High Triglyceride 150-199 mg/dL High Triglyceride: 200-499 mg/dL Very High Triglyceride: greater than or equal to 5OO mg/dL Cholesterol 209 <200 mg/dL Desirable Cholesterol: less than 200 mg/dL Borderline High Cholesterol: 200-239 mg/dL High Cholesterol: greater than 239 mg/dL LDL Cholesterol Calculated 103 <100 mg/dL Desirable LDL: less than 100 mg/dL Near Optimal/Above Optimal LDL: 110-129 mg/dL Borderline High LDL: 130-159 mg/dL High LDL: 160-189 mg/dL Very High LDL: greater than or equal to 190 mg/dL HDL Cholesterol 95 >40 mg/dL Desirable HDL: greater than 40 mg/dL Note: This HDL assay may give artificially low results in patients with liver disease. Vitamin D 25-OH Total Reviewed date:03/06/2023 12:29:59 PM Interpretation: Performing Lab:[address] [phone] Notes/Report: Vitamin D 25-OH Total 38.2 >30 ng/mL Health Based Reference Values* < 20 ng/mL Deficient 20-30 ng/mL Insufficient > 30 ng/mL Sufficient *Aneta NUNEZ. N Engl J Med. 2007;357:266-280 Care must be taken in interpreting Vitamin D results from different laboratories and methodologies. Published data demonstrated that results from patients undergoing hemodialysis may show a negative bias when tested with various automated 25-OH vitamin D assays when compared to LC-MS/MS. When testing samples from patients whose predominant form of Vitamin D is Vitamin D2, such as patients receiving Vitamin D2 supplementation, results that are subtherapeutic should be confirmed with another method such as LC-MS/MS. Microalbumin, Random Reviewed date:03/06/2023 12:46:53 PM Interpretation: Performing Lab:[address] [address] Notes/Report: Creatinine Urine 179.85 Microalbumin Urine 11.0 Microalbum/Creatinine Ratio Ur 6.1 <30 ug/mg cr Albumin/Creatinine Ratio Reference Ranges: Normal: < 30 ug/mg creatinine Microalbuminuria: 30 - 300 ug/mg creatinine Clinical Albuminuria: > 300 ug/mg creatinine Hemoglobin A1c Reviewed date:03/06/2023 11:38:54 AM Interpretation: Performing Lab:[address] [phone] Notes/Report: Hemoglobin A1c % 5.8 <6.0 % Hemoglobin A1C Reference Range Adults: 4.8 - 6.0 % Non diabetic: < 6.0 % Goal: < 7.0 % Additional Action Suggested: > 8.0 % Note: Hemoglobin A1c results are invalid for patients with abnormal amounts of HbF. Blood transfusions may impact the HbA1c concentration in the patient sample. Estimated Average Glucose 120 eAG = Estimated average glucose which is %A1C expressed as average glucose, using the formula of the K3U-Evkrbdt Average Glucose study (ADAG), Diabetes Care, Vol.31,#8, Sep. 2007 UA ClnCatch+Micro w/rflx Cul t Reviewed date:03/20/2023 11:11:17 AM Interpretation:see back 03-20-23 Performing Lab:[address] [phone] Notes/Report: Urine, Clean Catch Color Urine Yellow Appearance Urine Clear PH 5.5 5.0-9.0 Glucose Urine UA Negative Negative mg/dL Urine Blood Negative Negative Specific Pitcher - Urine 1.025 1.005-1.025 Urine Protein Negative Neg-Trace mg/dL Urine Ketones Trace Negative mg/dL Nitrite Urine Negative Negative Leukocyte Esterase Urine Negative Negative RBC Urine 3-5 0-2 /HPF WBC Urine 0-5 0-5 /HPF Squamous Epithelial Cell Urine 0-2 0-2 /HPF Bacteria Urine None Seen None Seen Hyaline Casts Urine 0-2 0-2 /LPF Occult Blood, Stool, Guaiac Reviewed date:03/20/2023 01:13:13 PM Interpretation:Negative Performing Lab: Notes/Report: Negative Occult Blood, Stool, Guaiac Neg Urinalysis and Microscopic Reviewed date:03/20/2023 04:59:04 PM Interpretation: Performing Lab:[facility], [address] [place] [phone] Notes/Report: Color Urine Yellow Appearance Urine Clear PH 6.0 5.0-9.0 Glucose Urine UA Negative Negative mg/dL Urine Blood Negative Negative Specific Pitcher - Urine 1.025 1.005-1.025 Urine Protein Negative Neg-Trace mg/dL Urine Ketones Trace Negative mg/dL Nitrite Urine Negative Negative Leukocyte Esterase Urine Trace Negative RBC Urine 0-2 0-2 /HPF WBC Urine 0-5 0-5 /HPF Squamous Epithelial Cell Urine 0-2 0-2 /HPF Bacteria Urine None Seen None Seen Hyaline Casts Urine 0-2 0-2 /LPF MR head/brain wo con Reviewed date:04/23/2023 09:23:51 AM Interpretation: Performing Lab: Notes/Report: [address] [address] Magnetic Resonance Report Signed Patient: Izabel Peralta MR#: [id number] 2 : 1945 Acct:[id number] Age/Sex: 77 / F ADM Date: 04/18/23 Loc: HO.MRI Attending Dr: Peter Bernabe MD Ordering Physician: Peter Bernabe MD Date of Service: 04/18/23 Procedure(s): MR head/brain wo con Accession Number(s): [id number] cc: Peter Bernabe MD EXAMINATION: MR BRAIN WITHOUT CONTRAST CLINICAL INFORMATION: Dizziness, vertical, unsteady gait for one month. History of head trauma 2 years ago. COMPARISON: CT scan of brain on 04/26/2020 TECHNIQUE: MRI of the brain was obtained using routine sequences without contrast. FINDINGS: Ventricles, sulci and cisterns are prominent. No focal cerebral, brainstem or cerebellar lesions with abnormal signal can be seen. Diffusion weighted images show no abnormal regional decrease in diffusion. Normal flow voids of major intracerebral blood vessels are seen in the visualized portion. The pituitary gland is atrophic. Optic chiasm is not displaced. Cerebellar tonsils position is normal. MR/MR head/brain wo con IMPRESSION: 1. Mild age related cerebral atrophy. 2. No acute cerebral infarction is seen. 3. No evidence of space occupying mass lesion could be found. 4. No evidence of intracranial hemorrhage. Dictated By: Suzette Mendoza Signed By: <Electronically signed by Suzette Mendoza in OV> 04/21/23 1313 DD/ 1500 TD/TT: Quencher Operator: MM tomosynthesis diagnostic LT Reviewed date:08/19/2023 02:00:49 PM Interpretation: Performing Lab: Notes/Report: [facility] [address] [place], [place] [address] Mammography Report Signed Patient: Izabel Peralta MR#: [id number] 2 : 1945 Acct:[id number] Age/Sex: 77 / F ADM Date: 08/19/23 Loc: HO.MAMMO Attending Dr: Jesus Browning MD Ordering Physician: Jesus Browning MD Results: 2Beni gn Findings Date of Service: 08/19/23 Follow Up: 1 Year From [facility] Mammogram Procedure(s): MM tomosynthesis diagnostic LT Accession Number(s): [id number] cc: Peter Beranbe MD; Jesus Browning MD EXAMINATION: MM DIAGNOSTIC DIGITAL BREAST TOMOSYNTHESIS, LEFT US BREAST LIMITED, LEFT MAMMOGRAPHY: CLINICAL INFORMATION: Patient with history of left breast CA 2019, treated with conservation therapy, now presenting with palpable fullness within left axilla. COMPARISON: Mammography: 01/29/2023, 01/19/2022, 01/29/2021, and dating back to 04/21/2019. MRI breast 02/12/2021. TECHNIQUE: Digital breast tomosynthesis is performed in both the craniocaudal and mediolateral oblique views along with computer-aided detection (CAD). Synthesized 2D images are generated from the tomosynthesis. In addition, left full-field 3-D exaggerated lateral cc view, and full-field 3-D left mediolateral views were also obtained. FINDINGS: There are scattered areas of fibroglandular density (ACR BI-RADS breast composition Category b). There are stable changes of lumpectomy and conservation treatment therapy in the left breast superiorly and slightly medially. No suspicious changes to the lumpectomy site. There are dystrophic appearing calcifications. There are no suspicious grouped pleomorphic calcifications. There are no masses, or developing areas of architectural distortion. The overall parenchymal pattern is unchanged. There is no mass or other abnormality in the left axilla. Slightly prominent fat pouch present. No skin abnormalities. ULTRASOUND: CLINICAL INFORMATION: As above. Left axilla swelling and discomfort. COMPARISON: No relevant prior. Left ultrasound 05/13/2019. TECHNIQUE: Targeted sonographic evaluation was performed using a high frequency linear transducer. Examination was targeted to the left axilla. Selected archived documentation. FINDINGS: LEFT AXILLA: There is no suspicious mass, abnormal lymph nodes, cystic abnormality, abnormal shadowing, or other abnormality noted in the left axilla. Mildly prominent left axillary fat pad is noted, benign. MM/MM tomosynthesis diagnostic LT IMPRESSION: -There are no suspicious findings in the left breast or left axilla to suggest malignancy. -Mildly prominent left axillary fat pad is present. -Stable post therapeutic changes in the left breast as described, no changes. -Recommend clinical follow-up and management of the patient's complaints. Otherwise, recommend returning to routine annual screening mammography. OVERALL ASSESSMENT: Mammography: BI-RADS 2 - Benign Findings Ultrasound: BI-RADS 2 - Benign Findings RECOMMENDATION: 1. Patient should be managed based on the clinical impression. 2. Otherwise, routine annual screening mammography. This patient's information was entered into a reminder system with a target due date for their next mammogram. Dictated By: Frank Magallanes MD Signed By: <Electronically signed by Frank Magallanes MD in OV> 08/19/23 1231 DD/ 1152 TD/TT: Quencher Operator: US breast LT limited mamm on ly Reviewed date:08/19/2023 02:00:06 PM Interpretation: Performing Lab: Notes/Report: [facility] [address] [place] [address] [place] [address] Ultrasound Report Signed Patient: Izabel Peralta MR#: [id number] 2 : 1945 Acct:[id number] Age/Sex: 77 / F ADM Date: 08/19/23 Loc: HO.MAMMO Attending Dr: Jesus Browning MD Ordering Physician: Jesus Browning MD Date of Service: 08/19/23 Procedure(s): US breast LT limited mamm only Accession Number(s): [id number] cc: Peter Bernabe MD; Jesus Browning MD EXAMINATION: MM DIAGNOSTIC DIGITAL BREAST TOMOSYNTHESIS, LEFT US BREAST LIMITED, LEFT MAMMOGRAPHY: CLINICAL INFORMATION: Patient with history of left breast CA 2020, treated with conservation therapy, now presenting with palpable fullness within left axilla. COMPARISON: Mammography: 01/29/2023, 01/19/2022, 01/29/2021, and dating back to 04/21/2019. MRI breast 02/12/2021. TECHNIQUE: Digital breast tomosynthesis is performed in both the craniocaudal and mediolateral oblique views along with computer-aided detection (CAD). Synthesized 2D images are generated from the tomosynthesis. In addition, left full-field 3-D exaggerated lateral cc view, and full-field 3-D left mediolateral views were also obtained. FINDINGS: There are scattered areas of fibroglandular density (ACR BI-RADS breast composition Category b). There are stable changes of lumpectomy and conservation treatment therapy in the left breast superiorly and slightly medially. No suspicious changes to the lumpectomy site. There are dystrophic appearing calcifications. There are no suspicious grouped pleomorphic calcifications. There are no masses, or developing areas of architectural distortion. The overall parenchymal pattern is unchanged. There is no mass or other abnormality in the left axilla. Slightly prominent fat pouch present. No skin abnormalities. ULTRASOUND: CLINICAL INFORMATION: As above. Left axilla swelling and discomfort. COMPARISON: No relevant prior. Left ultrasound 05/13/2019. TECHNIQUE: Targeted sonographic evaluation was performed using a high frequency linear transducer. Examination was targeted to the left axilla. Selected archived documentation. FINDINGS: LEFT AXILLA: There is no suspicious mass, abnormal lymph nodes, cystic abnormality, abnormal shadowing, or other abnormality noted in the left axilla. Mildly prominent left axillary fat pad is noted, benign. US/US breast LT limited mamm only IMPRESSION: -There are no suspicious findings in the left breast or left axilla to suggest malignancy. -Mildly prominent left axillary fat pad is present. -Stable post therapeutic changes in the left breast as described, no changes. -Recommend clinical follow-up and management of the patient's complaints. Otherwise, recommend returning to routine annual screening mammography. OVERALL ASSESSMENT: Mammography: BI-RADS 2 - Benign Findings Ultrasound: BI-RADS 2 - Benign Findings RECOMMENDATION: 1. Patient should be managed based on the clinical impression. 2. Otherwise, routine annual screening mammography. This patient's information was entered into a reminder system with a target due date for their next mammogram. Dictated By: Frank Magallanes MD Signed By: <Electronically signed by Frank Magallanes MD in OV> 08/19/23 1231 DD/ 1205 TD/TT: Quencher Operator: MM tomosynthesis screening B I Reviewed date:01/05/2024 04:58:24 PM Interpretation: Performing Lab: Notes/Report: [address] [place] [address] Mammography Report Signed Patient: Izabel Peralta MR#: [id number] 2 : 1945 Acct:[id number] Age/Sex: 78 / F ADM Date: 01/05/24 Loc: HO.MAMMO Attending Dr: Peter Bernabe MD Ordering Physician: Jesus Browning MD Results: 2Beni gn Findings Date of Service: 01/05/24 Follow Up: 1 Year From [facility] Mammogram Procedure(s): MM tomosynthesis screening BI Accession Number(s): [id number] cc: Peter Bernabe MD; Jesus Browning MD EXAMINATION: MM SCREENING DIGITAL BREAST TOMOSYNTHESIS, BILATERAL CLINICAL INFORMATION: Screening. Asymptomatic. COMPARISON: Mammography: Comparison is made with available priors TECHNIQUE: Digital breast mammography with tomosynthesis is performed in both the craniocaudal and mediolateral oblique views along with computer-aided detection (CAD). FINDINGS: The breasts are extremely dense, which lowers the sensitivity of mammography (ACR BI-RADS breast composition Category d). Left lumpectomy changes are stable. There are no significant masses, abnormal calcifications, or other abnormalities. MM/MM tomosynthesis screening BI IMPRESSION: No mammographic evidence of malignancy. ASSESSMENT: BI-RADS BI-RADS 2 - Benign Findings RECOMMENDATION: Routine annual mammography screening. 1 year F/U This examination should not preclude the clinical evaluation of a suspicious palpable abnormality. This patient's information was entered into a reminder system with a target due date for their next mammogram. Electronically signed by: Jenny Irvin DO 01/05/2024 03:01 PM EST RP Dictated By: Jenny Irvin DO Signed By: <Electronically signed by Jenny Irvin DO in OV> 01/05/24 1501 DD/ 1130 TD/TT: 01/05/24 1145 Quencher Operator: REASON FOR REFERRAL Reason SCREEN FOR COLON [...] Referral Priority Routine Referral Appointment Date 01/20/2024 MEDICATIONS Medication SIG (Take, Route, Frequency, Duration) Notes Start Date End Date Status Ambien 5 MG 1 tablet at bedtime Orally Once a day for 30 days 06/08/2020 Not-Taking Magnesium 400 MG 1 tablet with a meal Orally Once a day Active Vitamin D (Cholecalciferol) 1000 UNIT 1 capsule Orally Once a day 02/05/2018 Active Zinc 50 MG 1 tablet Orally Once a day Active Benadryl Allergy 25 MG 1 tablet at bedti me as needed Orally Once a day for 30 day(s) Not-Taking Valtrex 1 GM 1 tablet Orally thre e times a day for 5 days 12/22/2019 Not-Takin g Motrin IB 200 MG 1 tablet with food o r milk as needed Orally Three times a day Not-Taking IMMUNIZATIONS Vaccine Route Administration Date Status Comme nts Tetanus Unknown 02/06/2009 Administered Fluarix Quadrivalent IM Intramuscular 11/01/2013 Administe red PPSV23 (Pnemovax) IM Intramuscular 11/18/2013 Administered Fluarix Quadrivalent IM Intramuscular 12/28/2014 Administe red Fluarix Quadrivalent IM Intramuscular 11/12/2015 Administe red Prevnar 13 IM Intramuscular 12/31/2015 Administered Fluarix Quadrivalent IM Intramuscular 11/25/2016 Administe red Fluarix Quadrivalent IM Intramuscular 12/21/2017 Administe red Influenza High Dose IM Intramuscular 12/17/2018 Administer ed PPSV23 (Pnemovax) IM Intramuscular 02/10/2019 Administered Influenza High Dose IM Intramuscular 11/15/2019 Administer ed Covid Vaccine Unknown 05/26/2020 Administered Pfizer Covid Vaccine Unknown 06/16/2020 Administered Pfizer Fluarix Quadrivalent IM Intramuscular 11/16/2020 Administe red Fluarix Quadrivalent IM Intramuscular 12/12/2021 Administe red Fluarix Quadrivalent IM Intramuscular 12/01/2022 Administe red Fluarix Quadrivalent - 150 IM Intramuscular 12/24/2023 Administered Flu Vaccine Unknown 11/01/2013 Pending SOCIAL HISTORY Tobacco Use: Social History Observation Description Date Details (start date - stop date) Former Smoker NA - NA Sex Assigned At : Social History Observation Description Sex Assigned At Unknown Tobacco Use/Smoking Question Answer Notes Patient is a former smoker How long has it been since y ou last smoked? 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) Active confirmed 26969409 Problem Prediabetes (R73.03) Active confirmed 7 26784197 Problem Pure hypercholesterolemia (E78.00) Active confirmed 064132020 Problem Osteopenia determine d by x-ray (M85.80) Active confirmed 307597184 Problem 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) Active confirmed 23750812 Problem Insomnia, unspecifie d type (G47.00) Active confirmed 582926159 Problem Infiltrating ductal carcinoma of left breast (C50.912) Active confirmed 190959360 VITAL SIGNS Blood pressure diastolic 64 mm Hg 09/18/2023 roland ght is up 2 pounds since 03-20-23 Height 66.25 in 09/18/2023 weight is up 2 pounds since 03-20-23 Blood pressure systolic 132 mm Hg 09/18/2023 weig ht is up 2 pounds since 03-20-23 Weight 155 lbs 09/18/2023 weight is up 2 pounds since 03-20-23 BMI 24.83 kg/m2 09/18/2023 weight is up 2 pounds since 03-20-23 Encounters Encounter Location Date Provider Diagnosis Peter Bernabe MD [address] [place] [id number] 03/20/2023 Peter Bernabe Microscopic hematuri a R31.29 ; Pure hypercholesterolemia E78.00 ; Prediabetes R73.03 ; Infiltrating ductal carcinoma of left breast C50.912 ; Vitamin D deficiency E55.9 ; Colon cancer screening Z12.11 and Depression screening Z13.31 Peter Bernabe MD [address] [place] [id number] 03/06/2023 Peter Bernabe Pure hypercholestero lemia E78.00 ; Prediabetes R73.03 and Vitamin D deficiency E55.9 Peter Bernabe MD [address] [place] [id number] 12/24/2023 Peter Bernabe Encounter for administration of vaccine Z23 Peter Bernabe MD [address] [place], [place] [id number] 09/18/2023 Peter Bernabe History of breast ca ncer Z85.3 and History of colonoscopy Z98.890 Peter Bernabe MD [address] [place] [id number] 04/16/2023 Peter Bernabe Injury of head, sequ melly S09.90XS and Light-headed feeling R42 ASSESSMENTS Encounter Date Diagnosis Assessment Notes Treatment Notes Treatment Clinical Notes 03/20/2023 Pure hypercholestero lemia (ICD-10 - E78.00) doingwell, will continue to monitor, no need for medication at this time 03/20/2023 Microscopic hematuri a (ICD-10 - R31.29) will contnuie to monitor , pending additinal labs 03/06/2023 Prediabetes (ICD-10 - R73.03) 03/06/2023 Pure hypercholestero lemia (ICD-10 - E78.00) 12/24/2023 Encounter for administration of vaccine (ICD-10 - Z23) 09/18/2023 History of breast ca ncer (ICD-10 - Z85.3) 09/18/2023 History of colonosco py (ICD-10 - Z98.890) referral to dr servin for colonoscopy/ REFERRAL MADE FOR DR SERVIN, WILL FAX WHEN NOTE LOCKED. 04/16/2023 Light-headed feeling (ICD-10 - R42) she had this feeling after her head injury 2 years ago so am concerned that there could be some sequalae from that. her ear exam was completely normal/ did orthostatic bp reading and there was an insignifcant change 04/16/2023 Injury of head, sequ melly (ICD-10 - S09.90XS) pending diagnostic testing 03/20/2023 Prediabetes (ICD-10 - R73.03) good a1c, no need for medication at this time 03/06/2023 Vitamin D deficiency (ICD-10 - E55.9) 03/20/2023 Infiltrating ductal carcinoma of left breast (ICD-10 - C50.912) followed by dr farrell 03/20/2023 Vitamin D deficiency (ICD-10 - E55.9) stable, will continue current regiment 03/20/2023 Colon cancer screeni ng (ICD-10 - Z12.11) guaiac negative 03/20/2023 Depression screening (ICD-10 - Z13.31) negative screen PLAN OF TREATMENT Pending Test Test Name Order Date Electrocardiogram (EKG) 02/10/2019 MRI BRAIN NO CONTRAST 04/16/2023 US SOFT TISSUE 04/19/2021 TSH REFLEX FREE T4 07/05/2020 Next Appt Details Provider Name:Peter Blake ier, 03/17/2024 08:00:00 AM, [address] [place] [address], [address], [place], [place], [phone], Provider Name:Peter Blake ier, 03/24/2024 11:00:00 AM, [address] [place] [address], [address], [place], [place], [phone], Insurance Providers Payer Name Payer Address Payer Phone Subscriber Number Group Number Insured Name Patient Relationship to Insured Coverage Start Date Coverage End Date MEDICARE [facility] [address] [place] [address] [id number] Izabel Peralta Self - patient is the insured [facility] [address] [place] [phone] [id number] Izabel Peralta Self - patient is the insured MEDICAL (GENERAL) HISTORY Medical History History ICD Code lipoma left axilla colonoscopy 05/16/2010 (repeat in 7 to 10 years) Surgical History Surgery Date(Month/Year) LT Breast Lumpectomy w/Biopsy - Dr. Vanegas [facility] 05/2019
--- OUTSIDE RECORDS SUMMARY | 2024-02-10 00:47 | XMS_ITS ---
Author Organization Peter Bernabe MD Address [address] [place], [place] [phone] Care Team Providers Care Merchandising Execution Manager Name Role Phone Peter Bernabe Primary Care Provider REASON FOR VISIT HDF MEDICATIONS Medication SIG (Take, Route, Frequency, Duration) [...] 1 tablet Orally Once a day Active IMMUNIZATIONS Vaccine Route Administration Date Status Comme nts Fluarix Quadrivalent - 150 IM Intramuscular 12/24/2023 Adm inistered Encounters Encounter Location Date Provider Diagnosis Peter Bernabe MD [address] [place], [place] [phone] 12/24/2023 Peter Bernabe Encounter for administration of vaccine Z23 ASSESSMENTS Encounter Date Diagnosis Assessment Notes Treatment Notes Treatment Clinical Notes 12/24/2023 Encounter for administration of vaccine (ICD-10 - Z23) PLAN OF TREATMENT Next Appt Details Provider Name:Peter catherine, 03/17/2024 08:00:00 AM, [address] [facility], [address], [place], [phone], Provider Name:Peter catherine, 03/24/2024 11:00:00 AM, [address] [place] [address], [address], [place], [phone],
== END 2024-02-04 09:26 | disposition home or self-care (01) ==
PROVIDERS: PCP Internal Medicine; Visit Provider Surgery
DX: C50.912 Malignant neoplasm of unspecified site of left female breast (principal); Z17.0 Estrogen receptor positive status [ER+]; R92.333 Mammographic heterogeneous density, bilateral breasts
CPT/HCPCS: 99213; G2211

== ENCOUNTER → 2024-02-04 09:03 | Outpatient (BNVA) | payer MEDICARE, OTHER, SELFPAY | PROVIDERS: PCP Internal Medicine; Visit Provider Surgery | DX: C50.912 Malignant neoplasm of unspecified site of left female breast (principal); R92.333 Mammographic heterogeneous density, bilateral breasts; Z17.0 Estrogen receptor positive status [ER+] | CPT/HCPCS: 99212 ==

== ENCOUNTER 2024-03-17 10:34 | Outpatient (REF) | payer MEDICARE, OTHER, SELFPAY ==
[2024-03-17 10:36] LABS: MANUAL DIFF FLAG NO
[2024-03-17 10:54] LABS: Basophils Absolute Auto 0.1 X10*3/uL (0.0-0.2); Eosinophils Absolute Auto 0.1 X10*3/uL (0.0-0.4); Eosinophils Percent Auto 2.1 % (0-4); Hematocrit 41.6 % (37.0-47.0); Hemoglobin 13.5 g/dl (12.0-16.0); Imm Gran Abs Auto 0.02 X10*3/uL (0.00-0.03); Imm Gran Pct Auto 0.4 % (0.0-0.4); Lymphocytes Absolute Auto 1.7 X10*3/uL (1.2-4.9); Lymphocytes Percent Auto 32.8 % (20-40); Mean Corpuscular HGB Conc 32.5 g/dl (31.0-35.0); Mean Corpuscular Hemoglobin 29.2 pg (27.0-33.0); Monocytes Absolute Auto 0.5 X10*3/uL (0.1-1.2); Monocytes Percent Auto 10.1 % (2-11); Neutrophils Absolute Auto 2.8 x10*3/uL (2.0-8.3); Neutrophils Percent Auto 53.6 % (45-73); Platelet Count 225 X10*3/uL (160-400); Red Blood Count 4.62 X10*6/uL (4.20-5.50); Red Cell Distribution Width 12.5 % (11.0-16.0); White Blood Count 5.3 X10*3/uL (4.8-10.8)
[2024-03-17 10:56] LABS: Appearance Urine Clear; Color Urine Yellow; Glucose Urine UA Negative (Negative); Leukocyte Esterase Urine Trace (Negative); Nitrite Urine Negative (Negative); PH 6.5 (5.0-9.0); Urine Blood Negative (Negative); Urine Ketones Negative (Negative); Urine Protein Negative (Neg-Trace)
[2024-03-17 10:57] LABS: UMIC TRIGGER UACC YES
[2024-03-17 11:00] LABS: Estimated Average Glucose 120 mg/dL; Hemoglobin A1C 144.2051 umol/L; Hemoglobin A1c % 5.8 % (<6.0)
[2024-03-17 11:09] LABS: Creatinine Urine 112.21 mg/dL; Microalbum/Creatinine Ratio Ur 4.4 ug/mg cr (<30)
[2024-03-17 11:13] LABS: Alanine Aminotransferase 16 U/L (0-31); Alkaline Phosphatase 79 U/L (39-117); Anion Gap 9 (12-20); Aspartate Amino Transferase 23 U/L (5-31); Bilirubin Total 0.6 mg/dL (0.0-1.0); Blood Urea Nitrogen 15 mg/dL (9-16); Carbon Dioxide 28 mmol/L (22-29); Chloride 108 mmol/L (96-108); Cholesterol 214 mg/dL (<200); Estimated Glomerular Filt Rate > 60; Glucose Fasting 94 mg/dL (60-99); HDL Cholesterol 91 mg/dL (>40); LDL Cholesterol Calculated 112 mg/dL (<100); Potassium 4.2 mmol/L (3.3-5.1); Sodium 141 mmol/L (135-145); Total Protein 6.7 g/dL (6.5-8.0); Triglycerides 57 mg/dL (<150)
[2024-03-17 11:15] LABS: Bacteria Urine None Seen (None Seen); Hyaline Casts Urine 0-2 /LPF (0-2); RBC Urine 0-2 /HPF (0-2); Squamous Epithelial Cell Urine 0-2 /HPF (0-2); WBC Urine 0-5 /HPF (0-5)
== END 2024-03-17 10:35 | disposition home or self-care (01) ==
LOC: HO.LNP 10:34
PROVIDERS: Visit Provider Internal Medicine
DX: E78.00 Pure hypercholesterolemia, unspecified (principal); R73.03 Prediabetes; E55.9 Vitamin D deficiency, unspecified
CPT/HCPCS: 80053; 80061; 81001; 82043; 82570; 83036; 85025

== ENCOUNTER 2024-07-18 09:41 | Day surgery (SDC) | payer MEDICARE, OTHER, SELFPAY ==
[2024-03-31 14:33] VITALS: BMI 22.8
--- NOTE | 2024-07-15 08:55 | P.CONAN_ITS ---
Documented by User: Zena Guzman NP 07/15/24 08:55 HPI - Anesthesia Eval Consult details Narrative: 78yo F for Colonoscopy PMFSH Active Problems Active Problems: All Active Problems Dense breast tissue on mammogram (Acute) Varicose veins of right lower extremity with inflammation (Acute) Infiltrating ductal carcinoma of left breast, estrogen receptor positive, stage 1 (Acute) Past Medical History Medical History Hx of radiation therapy Infiltrating ductal carcinoma of left breast, estrogen receptor positive, stage 1 Family History Family History Mother Lung cancer Father Parkinson disease Surgical History Surgical History H/O colonoscopy History of lymph node excision History of lumpectomy of left breast History of hysterectomy Social History Social History Household Members: Spouse Housing: House Are you a primary director of career services to a significant other at home: No Do you presently have visiting nurse or other home services: No Alcohol intake: current Alcohol intake frequency: 0-2 drinks per day Alcohol type: hard liquor Patient Tobacco Use Status: Never used Tobacco Have you been hit, kicked, punched, or otherwise hurt by someone within the past year? If so, by whom?: No Are you DNR?: No Advance Directives: No Advance Directives Information Provided: Yes Poor oral hygiene: No service: No Current occupational status: retired Meds Allergies Allergy/AdvReac Type Severity Reaction Status Date / Time Sulfa (Sulfonamide Allergy Intermediate RASH/SWELLING, Verified 07/18/24 10:05 Antibiotics) rash [SULFA (SULFONAMIDE ANTIBIOTICS)] indomethacin [INDOMETHACIN] AdvReac Severe (FROM Verified 07/18/24 10:05 TIVOBEX) FELT OUT OF IT pneumococcal vaccine AdvReac Unknown SWELLING, Verified 07/18/24 10:05 [PNEUMOCOCCAL VACCINE] REDNESS Home Medications ?Medication ?Instructions ?Recorded ?Confirmed ?Last Taken ?Type cholecalciferol (vitamin D3) 50 50 mcg PO DAILY 12/13/19 03/31/24 Unknown History mcg (2,000 unit) capsule zinc acetate 25 mg (zinc) capsule 25 mg PO DAILY 03/31/24 03/31/24 Unknown History Exam Height,Weight and Vital Signs: Height 5 ft 8 in Weight 68.039 kg Assessment and Plan Assessment Anesthesia Assessment: Chart Reviewed Documented by User: Cecile Zimmer MD 07/18/24 10:43 [facility] Past Medical History Medical History Hx of radiation therapy Infiltrating ductal carcinoma of left breast, estrogen receptor positive, stage 1 Functional capacity: independent ambulation Family History Family History Mother Lung cancer Father Parkinson disease Surgical History Surgical History H/O colonoscopy History of lymph node excision History of lumpectomy of left breast History of hysterectomy History of Problems with Anesthesia: No Social History Social History Household Members: Spouse Housing: House Are you a primary director of career services to a significant other at home: No Do you presently have visiting nurse or other home services: No Alcohol intake: current Alcohol intake frequency: 0-2 drinks per day Alcohol type: hard liquor Patient Tobacco Use Status: Never used Tobacco Have you been hit, kicked, punched, or otherwise hurt by someone within the past year? If so, by whom?: No Are you DNR?: No Advance Directives: No Advance Directives Information Provided: Yes Poor oral hygiene: No service: No Current occupational status: retired Meds Allergies Allergy/AdvReac Type Severity Reaction Status Date / Time Sulfa (Sulfonamide Allergy Intermediate RASH/SWELLING, Verified 07/18/24 10:05 Antibiotics) rash [SULFA (SULFONAMIDE ANTIBIOTICS)] indomethacin [INDOMETHACIN] AdvReac Severe (FROM Verified 07/18/24 10:05 TIVOBEX) FELT OUT OF IT pneumococcal vaccine AdvReac Unknown SWELLING, Verified 07/18/24 10:05 [PNEUMOCOCCAL VACCINE] REDNESS Home Medications ?Medication ?Instructions ?Recorded ?Confirmed ?Last Taken ?Type cholecalciferol (vitamin D3) 50 50 mcg PO DAILY 12/13/19 03/31/24 Unknown History mcg (2,000 unit) capsule zinc acetate 25 mg (zinc) capsule 25 mg PO DAILY 03/31/24 03/31/24 Unknown History Exam Airway Mallampati Class: II TM Dist: >3cm Neck ROM: Full Loose/Missing/Broken Teeth: No Heart: RRR Lungs: CTA Assessment and Plan Assessment Anesthesia Assessment: Anesthesia Plan Discussed Final Anesthetic Review History of Problems with Anesthesia: No NPO: Yes ASA Class: II Final Preanesthetic Review: Meds/Allgs Chart Reviewed, Consent Obtained/Reviewed and Anes Risks/Benef Reviewed Patient Risk: Low Procedure Risk: Low Anesthetic Plan Anesthetic Plan: MAC: Disposition: Standard PACU
[2024-07-18 09:51] VITALS: BMI 22.7
[2024-07-18 09:53] VITALS: BMI 22.7
[2024-07-18] MEDS: Lactated Ringers 1,000 ML 100 ML IVCONT (10:03)
[2024-07-18 10:04] VITALS: BP 134/87; PULSE 95; RESP 18; TEMP 36.8; O2SAT 99
[2024-07-18 11:37] VITALS: BP 141/90; PULSE 88; RESP 18; TEMP 36.1; O2SAT 97
--- NOTE | 2024-07-18 11:47 | PM.OP ---
Brief Operative Note Date of Service: 07/18/24 Pre-op diagnosis: Screening Post-op diagnosis: other (Colon polyps) Procedure: Colonoscopy to the cecum with hot snare polypectomy at 15cm, and hot snare polypectpmy with placement of 2 submucosal ink markings and placement of 2 Resolution clips in mid-rectum. Surgeon: Zak Newman MD Anesthesia: MAC Was an Corner Block Cutter used for this Procedure?: No Estimated blood loss (mL): 0 Pathology: other (A. Polyp at 15cm B. Rectal polyp) Condition: stable Disposition: PACU
[2024-07-18 11:52] VITALS: BP 131/82; PULSE 80; RESP 18; TEMP 36.3; O2SAT 98
--- NOTE | 2024-07-18 13:03 | OP_ITS ---
DATE OF SERVICE: 07/18/2024 SURGEON: Zak Newman MD INDICATIONS: The patient presents for evaluation of colorectal cancer screening. Full consent obtained from her for this, including risks of bleeding and perforation. PREOPERATIVE DIAGNOSIS: Colorectal cancer screening. POSTOPERATIVE DIAGNOSIS: PROCEDURE PERFORMED: Colonoscopy to the cecum with hot snare polypectomy x 2, with placement of 2 resolution clips and submucosal ink markings at the rectal polypectomy site. ESTIMATED BLOOD LOSS: COMPLICATIONS: ANESTHESIA: Medication use; monitored anesthesia care. ASSISTANTS: SPECIMENS: POSTOPERATIVE DIAGNOSES: Colorectal cancer screening, colon polyps, diverticulosis, and internal hemorrhoids. DESCRIPTION OF PROCEDURE: The patient was placed in the left lateral decubitus position. The digital rectal exam revealed no abnormalities. The VR1 video pediatric colonoscope was entered into the rectum and advanced easily to the cecum. Once in the cecum, I did identify normal-appearing cecal pouch with appendiceal orifice and a normal-appearing ileocecal valve. The entire cecum and ileocecal valve appeared normal. The appendiceal orifice appeared normal. There was transillumination of light deep in the right lower quadrant. The scope was then slowly withdrawn assessing all mucosal surfaces carefully. For the most part, preparation was excellent. Although, in the sigmoid colon, there was some residual stool and vegetable debris that had to be suctioned and moved away as best as possible. At 15 cm, there was an approximately 8 mm polyp, which was removed by hot snare polypectomy and recovered by suction. The polypectomy site appeared clean, without any sign of residual polyp nor bleeding. In the mid-rectum, there was a large approximately 2.5 cm polyp on a somewhat broad base. It was clearly at least adenomatous and did have some minimal central ulceration. The remainder of the rectum appeared normal both in the forward view and retroflexed positions, other than some internal hemorrhoids. The rectal polyp was removed in piecemeal fashion with hot snare polypectomy with 2 large pieces recovered by withdrawing them out of the patient on the tip of the scope. Post-polypectomy the polypectomy site appeared clean, without any sign of residual polyp nor bleeding. I did place a submucosal ink daria on each side of the polypectomy site. I then used 2 resolution clips to oppose the opposite edges with good deployment and good hemostasis. The scope was then withdrawn from the patient. She tolerated the procedure well and was returned to recovery area in stable condition. IMPRESSION: 1. Colon polyps. 2. Diverticulosis. 3. Internal hemorrhoids. PLAN: The results of the pathology will be checked. Given the larger rectal polyp, I would recommend a repeat colonoscopy within 1 year if the tissue is just adenomatous and/or a villous adenoma. If there is any malignancy we would need to obviously address that much sooner with possible surgical consultation. She was advised not to use any aspirin or NSAIDs for at least a week. This has been discussed with her . MD NIRMAL Hampton/SHARI / [id number] MTDD
== END 2024-07-18 12:21 | disposition home or self-care (01) ==
PROVIDERS: PCP Internal Medicine; Visit Provider Internal Medicine
PROC: 0DJD8ZZ Inspection of Lower Intestinal Tract, Via Natural or Artificial Opening Endoscopic (ICD-10-PCS; CPT 45378; principal; 2024-07-18 09:30)
DX: Z12.11 Encounter for screening for malignant neoplasm of colon (principal); D12.8 Benign neoplasm of rectum; K57.30 Diverticulosis of large intestine without perforation or abscess without bleeding; K64.8 Other hemorrhoids; Z87.891 Personal history of nicotine dependence
CPT/HCPCS: 45385; 45381; 88305; J2003; J2704

== ENCOUNTER 2024-09-12 09:27 | Outpatient (AMB) | payer MEDICARE, OTHER, SELFPAY ==
--- OUTSIDE RECORDS SUMMARY | 2024-07-04 10:16 | XMS_ITS ---
Author Organization Peter Bernabe MD Address [address] [facility] [address] [place] [phone] Care Team Providers Care Compensation Consultant Name Role Phone Peter Bernabe Primary Care Provider [phone] Medications Medication SIG (Take, Route, Fr equency, Duration) Notes Start Date End Date Status Nystatin 085430 UNIT/GM 1 application Ex ternally Twice a day for 14 days 07/04/2024 Active Encounters Encounter Location Date Provider Diagnosis Peter Bernabe MD [address] [place] [address] [place] [phone] 07/04/2024 Peter Bernabe Plan Of Treatment Medication Medication Name Sig Start Date Stop Date Notes Nystatin 583637 UNIT/GM 1 application Ex ternally Twice a day for 14 days 07/04/2024 Next Appt Details Provider Name:Peter catherine, 09/22/2024 10:45:00 AM, [address] [place] [address], [address], [phone], Provider Name:Peter catherine, 03/23/2025 07:30:00 AM, [address] [place] [address], [address], [phone], Provider Name:Peter catherine, 03/28/2025 10:30:00 AM, [address] [place] [address], [address], [phone], Progress Notes * Madeleine VILLEGASrodneyDOB:1945 (78 yo F)Acc No.[id number]:07/04/2024 Patient: Izabel PERDOMO :1945 A ge:78 Y S ex:Female Address:[address] [place] [address] , [place] [address] * Refills Start Nystatin Cream, 569582 UNIT/GM, Externally, 60, 1 application, Twice a day, 14 days * true * Date: Generated for Marc pena/Storm/Benniesmitting on: 0 09/12/2024 09:54 AM EDT
--- NOTE | 2024-09-12 09:28 | A.OFFVIS_ITS ---
Vital Signs 09/12/24 09:35 Height 5 ft 8 in Weight 152 lb BMI 23.1 BP 135/73 Blood Pressure Location Lt brachial Position Sitting Pulse 85 Intake Visit Reasons: 6 month follow up breast exam Intake Note: Patient is seen in office for 6 month follow up visit, breast exam. Pt c/o: continued left breast stabbing, unsure if due to bra, had x-ray done mm sched:01/05/25 Director Of Land Acquisition Required: No Outside Rigger: Outside Rigger Present Accompanied by: Self / Same As Patient Allergies Sulfa (Sulfonamide Antibiotics) (SULFA (SULFONAMIDE ANTIBIOTICS)) Allergy (Inte rmediate, Verified 09/12/24 09:29) RASH/SWELLING, rash indomethacin (INDOMETHACIN) Adverse Reaction (Severe, Verified 09/12/24 09:29) (FROM TIVOBEX) FELT OUT OF IT pneumococcal vaccine (PNEUMOCOCCAL VACCINE) Adverse Reaction (Unknown, Verified 09/12/24 09:29) SWELLING, REDNESS HPI Comments Details: 79-year-old female patient, returning to review her recent mammogram and ultrasound to evaluate swelling in the left axilla. She was initially evaluated by Dr. Dietrich 04/26/2019 was noted to have a palpable density at the 11 o'clock position of the left breast measuring 1.5 cm approximately 4 cm from the nipple. Mammogram of 04/19/2019 and 04/21/2019 revealed a nodular asymmetry with radiating lines of the the upper inner quadrant left breast. Lesion was 0.9 cm in diameter and felt to be suspicious for malignancy. She underwent ultrasound- guided core biopsy on 04/26/2019. This revealed an infiltrating ductal carcinoma grade 1-2, ER positive, CO negative, HER2 Homero equivocal. On 05/13/2019 she underwent a left breast lumpectomy with needle localization, sentinel node biopsy. Pathology revealed a 1.4 cm grade 2 infiltrating ductal carcinoma, ER positive, CO negative, HER2 Homero negative, 0 of 1 lymph nodes with metastatic disease. She was evaluated by Dr. Adam and the patient declined antiestrogen therapy. She was evaluated by Dr. Jiang and underwent left breast radiation therapy and tolerated this well. A diagnostic mammogram and ultrasound of the left breast was performed on 08/19/2023 and revealed only benign findings in the left axilla with no suspicious changes (BI-RADS 2). Her most recent mammogram of 01/05/2024 revealed no mammographic evidence of malignancy (BI-RADS 2). Since her last visit she denies any new breast symptoms. She is scheduled for an annual mammogram on 01/05/2025. [facility] Medical History Hx of radiation therapy Infiltrating ductal carcinoma of left breast, estrogen receptor positive, stage 1 Surgical History H/O colonoscopy History of lymph node excision History of lumpectomy of left breast History of hysterectomy Family History Mother Lung cancer Father Parkinson disease Social History Household Members: Spouse Housing: House Are you a primary direct care staffer to a significant other at home: No Do you presently have visiting nurse or other home services: No Alcohol intake: current Alcohol intake frequency: 0-2 drinks per day Alcohol type: hard liquor Patient Tobacco Use Status: Never used Tobacco service: No Current occupational status: retired Review of Systems Const All systems reviewed & are unremarkable except as noted in HPI and below Denies chills, Denies fever(s), Denies headache(s) and Denies poor appetite ENT Denies dizziness and Denies headache(s) Card Denies chest pain, Denies rapid heart rate, Denies palpitations and Denies slow heart rate Resp Denies chest congestion, Denies cough, Denies pain on inspiration and Denies wheezing GI Denies abdominal pain, Denies bloating, Denies change in stool character, Denies constipation, Denies diarrhea, Denies nausea, Denies vomiting and Denies hematemesis Musc Denies back pain, Denies arthralgias, Denies joint swelling and Denies numbness Skin/Breast Denies change in pigmentation, Denies erythema and Denies rash Neuro Denies dizziness, Denies headache(s) and Denies numbness Psych Denies anxiety and Denies depression Endo Denies palpitations Anibal/Lymph Denies easy bleeding, Denies easy bruising and Denies lymphadenopathy Aller/Immun Denies wheezing Physical Exam Const General: cooperative, comfortable and well developed Nutritional Appearance: well nourished Orientation/consciousness: patient oriented x3 Eyes Sclerae: sclerae normal EOM: EOMs intact bilaterally Neck Neck: Yes normal visual inspection Chest Other: Bilateral very dense breast tissue however no new skin changes, nipple discharge, nipple retraction, palpable mass, or enlarged lymph node is noted on either side. There is a well-healed incision in the upper outer portion of the left breast. There is tenderness around this incision and in the axilla. There is a new palpable fullness noted in the left axilla somewhat superior to the axillary incision Resp Effort & Inspection: normal respiratory effort, no cough, no respiratory dist ress and no stridor Cardio Jugular venous distension: no JVD Back/Spine/Pelvis Other: Soft tissue mass in the right flank at the posterior axillary line consistent with lipoma within the subcutaneous tissue. Lesion measures approximately 2 cm in diameter. No overlying skin changes are appreciated. Skin General skin exam: dry skin Rashes: no rashes Neuro Other: Mobility Assessment: 1. 3 meter assessment time (seconds):5 2. Gait observations: Normal balance and gait General: patient oriented x3 and no focal motor deficits Extrem General: Yes full ROM and Yes no clubbing, cyanosis or edema Psych Appearance: grossly normal Assessment & Plan Assessment & Plan (1) Infiltrating ductal carcinoma of left breast, estrogen receptor positive, stage 1: Code(s): C50.912 - Malignant neoplasm of unspecified site of left female breast; Z17.0 - Estrogen receptor positive status [ER+] Category: Medical (2) Dense breast tissue on mammogram: Code(s): R92.2 - Inconclusive mammogram Category: Medical Qualifiers: Mammographic dense breast tissue type: heterogeneous Laterality: bilateral Qualified Code(s): R92.333 - Mammographic heterogeneous density, bilateral breasts Plan 79-year-old female patient with history of left breast lumpectomy and sentinel node biopsy for an infiltrating ductal carcinoma in the 11 o'clock position on 05/13/2019. She denies any new breast symptoms and generally feels well. Her most recent mammogram dated 01/05/2024 revealed no mammographic evidence of malignancy (BI-RADS 2). Examination today revealed no significant changes on either side. She does have tenderness still in the left breast post therapy. I recommended follow-up examination in 1 year, sooner PRN. She is scheduled for a follow-up mammogram on 01/05/2025. Coding Level of Care Code Est Pt Level 3 (72184) Complex EM visit Add On G2211 Diagnoses Infiltrating ductal carcinoma of left breast, estrogen receptor positive, stage 1 C50.912; Z17.0 Heterogeneously dense tissue of both breasts on mammography R92.333 Mammographic dense breast tissue type: heterogeneous Laterality: bilateral
[2024-09-12 09:35] VITALS: BP 135/73; PULSE 85; BMI 23.1
--- OUTSIDE RECORDS SUMMARY | 2024-09-12 09:54 | XMS_ITS | Patient Health Record ---
Author Organization [facility] Address [address] [place] [phone] Care Team Providers Care Specialty Foods Cook Name Role Phone Peter Bernabe MD Primary Care Provider Zak Castro [phone] Allergies Allergen (clinical drug ingredient) Drug/Non Drug Allergy documented on EMR Reaction Allergy Type Onset Date Status Substance with sulfonamide structure and antibacterial mechanism of action (substance) Sulfa Antibiotics Unknown Drug Allergy Active Results Component Value Reference Range Notes Pathology Reviewed date:07/21/2024 10:17:12 PM Interpretation: Performing Lab:[facility], [address] [place] [phone] Notes/Report: Reason For Referral No Information Medications Medication SIG (Take, Route, Frequency, Duration) Notes Start Date End Date Status Zinc Active Vitamin D Active Social History Tobacco Use: Social History Observation Description Date Details (start date - stop date) Former Smoker NA - NA Tobacco Use/Smoking Question Answer Notes Patient is [...] Never (0 point) Points 2 Interpretation Negative Section Notes: Nonsmoker, no sig alcohol Problems Problem Type SNOMED Code ICD Code Onset Dates Problem Status W/U Status Risk Notes Problem Colon cancer screening (505296836) Colon cancer screening (Z12.11) Active confirmed Problem Pre-procedure evaluation check (202302413) Encounter for other preprocedural examination (Z01.818) Active confirmed Vital Signs Blood pressure diastolic 00 mm Hg 01/20/2024 Height 5 ft 8 in in 01/20/2024 Blood pressure systolic 00 mm Hg 01/20/2024 Weight 150 lbs 01/20/2024 BMI 22.80 kg/m2 01/20/2024 Encounters Encounter Location Date Provider Diagnosis [facility] [address] [place] [phone] 07/18/2024 Zak Newman Colon cancer screeni ng Z12.11 ; 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 ; Adenomatous colon polyp D12.6 and Diverticulosis of large intestine without perforation or abscess without bleeding K57.30 [facility] [address] [place] [phone] 01/20/2024 Zak Newman Colon cancer screeni ng Z12.11 and Encounter for other preprocedural examination Z01.818 [facility] [address] [place] [phone] 12/08/2023 Zak Newman [facility] [address] [place] [phone] 01/20/2024 Zak Newman [facility] [address] [place] [phone] 04/05/2024 Zak Newman [facility] [address] [place] [phone] 07/21/2024 Zak Newman Assessments Encounter Date Diagnosis (ICD Code) Assessment Notes Treatment Notes Treatment Clinical Notes Section Notes 07/18/2024 Colon cancer screening (ICD-10 - Z12.11) 07/18/2024 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 Given her age, or excellent clinical appearance, and last colonoscopy being over 10 years ago, I did recommend a followup colonoscopy for further screening purposes. We did review the rationale for this in regard to colorectal cancer prevention. Full consent is obtained for this, including risks of bleeding and perforation. The procedure will be done with monitored anesthesia care. Marilee was comfortable with this plan. Thank you again for allowing me to participate in Marilee's care. I shall continue to keep you advised of her progress. 01/20/2024 Encounter for other preprocedural examination (ICD-10 - Z01.818) Overall, Marilee appears quite well. Given her age, or excellent clinical appearance, and last colonoscopy being over 10 years ago, I did recommend a followup colonoscopy for further screening purposes. We did review the rationale for this in regard to colorectal cancer prevention. Full consent is obtained for this, including risks of bleeding and perforation. The procedure will be done with monitored anesthesia care. Marilee was comfortable with this plan. Thank you again for allowing me to participate in Marilee's care. I shall continue to keep you advised of her progress. 07/18/2024 Adenomatous colon polyp (ICD-10 - D12.6) 07/18/2024 Diverticulosis of large intestine without perforation or abscess without bleeding (ICD-10 - K57.30) Plan Of Treatment Future Test Test Name Order Date COLONOSCOPY 01/20/2024 Insurance Providers Payer Name Payer Address Payer Phone Subscriber Number Group Number Insured Name Patient Relationship to Insured Coverage Start Date Coverage End Date MEDICARE OF [place] [address] [place] [address] [phone] [id number] MARILEE VILLEGAS Self - patient is the insured [employer] [address] [place] [address] [phone] [id number] MARILEE VILLEGAS Self - patient is the insured Medical (General) History Medical History History ICD Code Denies OK,DM,CVA,Lung disease,renal dise ase Breast cancer on the left-surgery and XR T in 2018 Negative colonoscopy [address] Kennedy s Surgical History Surgery Date(Month/Year) Left lumpectomy for breast cancer with X RT as above ZAYRA
== END 2024-09-12 09:55 | disposition home or self-care (01) ==
LOC: HO.HGS 09:28
PROVIDERS: PCP Internal Medicine; Visit Provider Surgery
DX: C50.912 Malignant neoplasm of unspecified site of left female breast (principal); Z17.0 Estrogen receptor positive status [ER+]; R92.333 Mammographic heterogeneous density, bilateral breasts
CPT/HCPCS: 99213; G2211

== ENCOUNTER → 2024-09-12 09:27 | Outpatient (BNVA) | payer MEDICARE, OTHER, SELFPAY | PROVIDERS: PCP Internal Medicine; Visit Provider Surgery | DX: R92.333 Mammographic heterogeneous density, bilateral breasts (principal); Z17.0 Estrogen receptor positive status [ER+]; Z85.3 Personal history of malignant neoplasm of breast | CPT/HCPCS: 99212 ==

== ENCOUNTER 2025-01-05 11:24 | Outpatient (REF) | payer MEDICARE, OTHER, SELFPAY ==
--- OUTSIDE RECORDS SUMMARY | 2021-01-10 12:14 | XMS_ITS | Encounter Summary ---
Author Organization [facility] Address [address] [place] [id number] Phone Care Team Providers Care Embossing Unit Operator Name Role Phone Peter Bernabe MD Primary Care Provider Encounter Details Date Type Department Care Team (Late st Contact Info) Description 01/10/2021 12:14 PM [facility] Hospital Encounter [facility] [address] [place] [id number] Jewell Cota FNP [address] [place] [address] [email or web address] Social History Tobacco Use Types Packs/Day Years Used Date Smoking Tobacco: Former Cigarettes Q uit: 1978 Smokeless Tobacco: Never Education Answer Date Recorded Are you interested in more education? Not on alden e 06/27/2022 Are you concerned about learning? Not on file 06/27/2022 No 06/27/2022 No 06/27/2022 Digital Access Answer Date Recorded No 07/26/2022 No 07/26/2022 Reliable internet access at home? Not on file 07/26/2022 Device with a working camera? Not on file Comments Unknown Sex and Gender Information Value Date Recorded Sex Assigned at Not on file Legal Sex Female 10:37 PM EDT Gender Identity Not on file Sexual Orientation Not on file documented as of this encounter Plan of Treatment Not on file documented as of this encounter Procedures Procedure Name Priority Date/Time Associated Diagnosis Comments XR FOOT 3 OR MORE VIEWS (RIGHT) Urgent/patient waiting 01/10/2021 12:24 PM EST Swelling of right foot documented in this encounter Results * XR FOOT 3 OR MORE VIEWS (RIGHT) (01/10/2021 12:24 PM EST) Anatomical Region Laterality Modality Foot Right Computed Radiogr aphy 01/10/2021 12:3 5 PM EST Impressions 01/10/2021 12:37 PM EST No fracture or dislocation. Narrative 01/10/2021 12:37 PM EST XR FOOT 3 OR MORE VIEWS (RIGHT) COMPARISON: None FINDINGS: No fracture. Normal alignment. Normal joint spaces. No soft tissue swelling. Procedure Note Tomas Umana, DO - 01/10/2021 XR FOOT 3 OR MORE VIEWS (RIGHT) COMPARISON: None FINDINGS: No fracture. Normal alignment. Normal joint spaces. No soft tissueswelling. IMPRESSION: No fracture or dislocation. Jewell Cota MATERIAL LIAISON IMG XR LOWER EXTREMITY Terrie l Result documented in this encounter Visit Diagnoses Not on filedocumented in this encounter Additional Health Concerns Infection Onset Date Last Indicated Resolved Time CoV-Risk 02/17/2021 02/17/2021 02/27/2021 1:22 AM EST documented as of this encounter Care Teams Embossing Unit Operator Relationship Specialty Start Date End Date Peter Bernabe MD [address] [place] [address] [place] [id number] PCP - General 03/05/17 documented as of this encounter Additional Source Comments The information contained in this document represents components of the legal health record. It is not the complete legal health record.[facility]
--- OUTSIDE RECORDS SUMMARY | 2023-09-18 05:00 | XMS_ITS ---
Author Organization Peter Bernabe MD Address [address] [place], [place] [id number] Care Team Providers Care Charter Bus Driver Name Role Phone Peter Bernabe Primary Care Provider Allergies Allergen (clinical drug ingredient) Drug/Non Drug Allergy documented on EMR Reaction Allergy Type Onset Date Status azithromycin Zithromax Z-Bryce rash Drug Allergy Active sulfamethoxazole / trimethoprim Bactrim DS rash Drug Allergy Active oxymetazoline 12 Hour Nasal Unknown Drug Allergy Active indomethacin Indomethacin dizziness and confusion Drug Allergy Active Reason For Referral Reason SCREEN FOR COLON CAN CER Diagnosis 1 Screen for colon can cer (Z12.11) Referral Organization Peter Bernabe MD Referring Provider First Name Peter Referring Provider Last Name Srinivasa Referring Provider Speciality Internal M edicine Referred Provider Zak Servin Referred Provider Specialty Gastroentero logy General Notes Yue Ibanez 09/21/2023 12:09:40 PM EDT > the referral and notes have been faxed to [facility]Marcelle Patti A 10/05/2023 09:45:35 AM EDT > APPT SCHEDULED FOR 01/20/24 AT 3:20PMMarcelle Patti A 02/01/2024 03:42:34 PM EST > OFFICE NOTE RECD Referral Priority Routine Referral Appointment Date 01/20/2024 REASON FOR VISIT 6 month Medications Medication SIG (Take, Route, Frequency, Duration) Notes Start Date End Date Status Zinc 50 MG 1 tablet Orally Once a day Active Magnesium 400 MG 1 tablet with a meal Orally Once a day Active Vitamin D (Cholecalciferol) 1000 UNIT 1 capsule Orally Once a day 02/05/2018 Active Motrin IB 200 MG 1 tablet with food o r milk as needed Orally Three times a day Not-Taking Benadryl Allergy 25 MG 1 tablet at bedti me as needed Orally Once a day for 30 day(s) Not-Taking Valtrex 1 GM 1 tablet Orally thre e times a day for 5 days 12/22/2019 Not-Takin g Ambien 5 MG 1 tablet at bedtime Orally Once a day for 30 days 06/08/2020 Not-Taking Vital Signs Blood pressure systolic 132 mm Hg 09/18/19 24 Blood pressure diastolic 64 mm Hg 024 Height 66.25 in 09/18/2023 Weight 155 lbs 09/18/2023 BMI 24.83 kg/m2 09/18/2023 weight is up 2 pounds since 03-20-23 Encounters Encounter Location Date Provider Diagnosis Peter Bernabe MD [address] [place] [address] [place] [phone] 09/18/2023 Peter Bernabe History of breast cancer Z85.3 and History of colonoscopy Z98.890 Assessments Encounter Date Diagnosis (ICD Code) Assessment Notes Treatment Notes Treatment Clinical Notes Section Notes 09/18/2023 History of breast cancer (ICD-10 - Z85.3) 09/18/2023 History of colonoscopy (ICD-10 - Z98.890) referral to dr servin for colonoscopy/ REFERRAL MADE FOR DR SERVIN, WILL FAX WHEN NOTE LOCKED. Plan Of Treatment Treatment Notes Assessment Notes History of colonoscopy referral to dr gloria jules for colonoscopy/ REFERRAL MADE FOR DR SERVIN, WILL FAX WHEN NOTE LOCKED. Referrals Referral Date Details 09/18/2023 09/18/2023, SCREEN F OR COLON CANCER, Zak Servin Next Appt Details Provider Name:Peter catherine, 03/23/2025 07:30:00 AM, [address] [place] [address], Suite [facility], [place], [place], [phone], Provider Name:Peter catherine, 03/28/2025 10:30:00 AM, [address] [place] [address], Suite [facility], [place], [place], [phone], Progress Notes * Izabel VILLEGASDOB:1945 (78 yo F)Acc No.[id number]:09/18/2023 Progress Notes Patient: Izabel Olivares Provider: Ba Bernabe MD :1945 A ge:78 Y S ex:Female Date:09/18/2023 Address:[address] [place], [place] [id number] Subjective: * Chief Complaints: * 6 month * HPI: S ymptom(s): patient is a 78 yo female here for 6 month follow up visit. * ROS: G eneral/Constitutional: Denies C hills. D enies F atigue. D enies F ever. D enies H eadache. E NT: Patient denies d ecreased sense of smell , any loss of taste , sore throat. D enies S ore throat. R espiratory: Denies C ough. D enies S hortness of breath at rest. D enies S hortness of breath with exertion. G astrointestinal: Denies D iarrhea. D enies N ausea. M usculoskeletal: Patient denies m uscle aches. P eripheral Vascular: Patient denies r ed and blue toes. * Medical History: * Surgical History: * Hospitalization/Major Diagno stic Procedure: * Medications: T akingZinc 50 MG Tablet 1 tablet Orally Once a dayMagnesium 400 MG Capsule 1 tablet with a meal Orally Once a dayVitamin D (Cholecalciferol) 1000 UNIT Capsule 1 capsule Orally Once a dayTaking Zinc 50 MG Tablet 1 tablet Orally Once a dayTaking Magnesium 400 MG Capsule 1 tablet with a meal Orally Once a dayTaking Vitamin D (Cholecalciferol) 1000 UNIT Capsule 1 capsule Orally Once a dayNot- Taking/PRNMotrin IB 200 MG Tablet 1 tablet with food or milk as needed Orally Three times a dayBenadryl Allergy 25 MG Tablet 1 tablet at bedtime as needed Orally Once a dayValtrex 1 GM Tablet 1 tablet Orally three times a dayAmbien 5 MG Tablet 1 tablet at bedtime Orally Once a dayMedication List reviewed and reconciled with the patientNot-Taking/PRN Motrin IB 200 MG Tablet 1 tablet with food or milk as needed Orally Three times a dayNot-Taking/PRN Benadryl Allergy 25 MG Tablet 1 tablet at bedtime as needed Orally Once a dayNot-Taking/PRN Valtrex 1 GM Tablet 1 tablet Orally three times a dayNot-Taking/PRN Ambien 5 MG Tablet 1 tablet at bedtime Orally Once a dayMedication List reviewed and reconciled with the patient * Allergies: B actrim DS: rashIndomethacin: dizziness and confusion - Side [id number] Hour NasalZithromax Z-Bryce: rashyes[Allergies Verified] Objective: * Vitals: H t: 66.25, Wt:155, BMI:24.83, BP:132/64 weight is up 2 pounds since 03-20-23. * Examination: G eneral Examination: GENERAL APPEARANCE: alert, well hydrated, in no distress . HEAD: normocephalic. SKIN: good turgor. HEART: no murmurs, rubs, gallops, regular rate and rhythm. LUNGS: no wheezes, rales, rhonchi, good air movement, clear to auscultation bilaterally. ABDOMEN: soft, nontender, nondistended. ? Assessment: * Assessment: 1. H istory of breast cancer - Z85.3 (Primary) 2 . H istory of colonoscopy - Z98.890? Plan: * Treatment: 2. O thers Referral To:Zak Serivn Gastroenterology Reason:SCREEN FOR COLON CANCER * Procedure Codes: * * Sign off status: Completed true * Provider: Ba Bernabe MD Date: 0 09/18/2023 Generated for Marc pena/Storm/Benniesmitting on: 03/07/2024 02:17 PM EST History and Physical Notes * HPI (History of Present Illness) Category Sub-Category Detail Notes Category Not es Symptom(s) patient is a 78 yo female here for 6 month follow up visit Examination Category Sub-Category Detail Notes Category Not es General Examination GENERAL APPEARANCE: alert, w ell hydrated, in no distress HEAD: normocephalic HEART: no murmurs, rubs, ga llops, regular rate and rhythm LUNGS: no wheezes, rales, r honchi, good air movement, clear to auscultation bilaterally ABDOMEN: soft, nontender, non distended SKIN: good turgor Consultation Request Notes Referral Date Referring Provider Referred Provider Not es 09/18/2023 Peter Bernabe Robert SCREEN FOR COLON CANCER
--- OUTSIDE RECORDS SUMMARY | 2023-12-24 06:00 | XMS_ITS ---
Author Organization Peter Bernabe MD Address [address] [place], [place] [phone] Care Team Providers Care Utility Accounts Director Name Role Phone Peter Bernabe Primary Care Provider REASON FOR VISIT HDF Medications Medication SIG (Take, Route, Frequency, Duration) Notes Start Date End Date Status Magnesium 400 MG 1 tablet with a meal Orally Once a day Active Vitamin D (Cholecalciferol) 1000 UNIT 1 capsule Orally Once a day 02/05/2018 Active Benadryl Allergy 25 MG 1 tablet at bedti me as needed Orally Once a day for 30 day(s) Not-Taking Valtrex 1 GM 1 tablet Orally thre e times a day for 5 days 12/22/2019 Not-Takin g Motrin IB 200 MG 1 tablet with food o r milk as needed Orally Three times a day Not-Taking Ambien 5 MG 1 tablet at bedtime Orally Once a day for 30 days 06/08/2020 Not-Taking Zinc 50 MG 1 tablet Orally Once a day Active Immunizations Vaccine Route Administration Date Status Comme nts Fluarix Quadrivalent - 150 IM Intramuscular 12/24/2023 Adm inistered Encounters Encounter Location Date Provider Diagnosis Peter Bernabe MD [address] [place], [place] [phone] 12/24/2023 Peter Bernabe Encounter for administration of vaccine Z23 Assessments Encounter Date Diagnosis (ICD Code) Assessment Notes Treatment Notes Treatment Clinical Notes Section Notes 12/24/2023 Encounter for administration of vaccine (ICD-10 - Z23) Plan Of Treatment Next Appt Details Provider Name:Peter Blake ier, 03/23/2025 07:30:00 AM, [address], [address], [place], [place], [phone], Provider Name:Peter Blake ier, 03/28/2025 10:30:00 AM, [address], [address], [place], [place], [phone], Progress Notes * VILLEGASMadeleinerodneyDOB:1945 (78 yo F)Acc No.[id number]:12/24/2023 Progress Note Patient: Izabel Olivares Provider: Ba Bernabe MD :1945 A ge:78 Y S ex:Female Date:12/24/2023 Address:[address] [place], [place] [id number] Subjective: * Chief Complaints: * H DF * Medical History: * Surgical History: * [...] 1 tablet at bedtime Orally Once a dayNot-Taking/PRN Motrin IB 200 MG Tablet 1 tablet with food or milk as needed Orally Three times a dayNot-Taking/PRN Benadryl Allergy 25 MG Tablet 1 tablet at bedtime as needed Orally Once a dayNot-Taking/PRN Valtrex 1 GM Tablet 1 tablet Orally three times a dayNot-Taking/PRN Ambien 5 MG Tablet 1 tablet at bedtime Orally Once a day Objective: Assessment: * Assessment: 1. E ncounter for administration of vaccine - Z23 (Primary) Plan: * Treatment: * Immunizations: Fluarix Quadrivalent - 150 : 0.5 mL (Dose No:1) (Route: Intramuscular) given by Rosy Roa on Left Deltoid * Procedure Codes: 9 0656 FLU VACCINE NO PRESERV 3 & >G0008 ADMN FLU VAC NO FEE SCHED SAME DAY * * Sign off status: Completed true * Provider: Ba Bernabe MD Date: Generated for Marc pena/Storm/Adan on: 03/07/2024 02:15 PM EST
--- OUTSIDE RECORDS SUMMARY | 2024-07-18 04:30 | XMS_ITS ---
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 ; Adenomatous colon polyp D12.6 and Diverticulosis of large intestine without perforation or abscess without bleeding K57.30 Assessments Encounter Date Diagnosis (ICD Code) Assessment Notes Treatment Notes Treatment Clinical Notes Section Notes 07/18/2024 Colon cancer screening (ICD-10 - Z12.11) 07/18/2024 Benign neoplasm of rectum (ICD-10 - D12.8) 07/18/2024 Adenomatous colon polyp (ICD-10 - D12.6) 07/18/2024 Diverticulosis of large intestine without perforation or abscess without bleeding (ICD-10 - K57.30) Plan Of Treatment No Information Progress Notes * MARILEE VILLEGASDOB:1945 (79 yo F)Acc No.[id number]:07/18/2024 COLON WITH MAC Patient: MARILEE PERDOMO Provider: Sameera Newman MD :1945 A ge:78 Y S ex:Female Date:07/18/2024 Address:[address] [place], [place] [phone] Pcp:Peter Bernabe MD Subjective: * Chief Complaints: * 1 . Screening colon. * Medical History: Objective: * Vitals: Assessment: * Assessment: 1. C olon cancer screening - Z12.11 (Primary) 2 . B enign neoplasm of rectum - D12.8 3 . A denomatous colon polyp - D12.6 4 . D iverticulosis of large intestine without perforation or abscess without bleeding - K57.30 Plan: * Treatment: * Procedure Codes: 4 5385 LESION REMOVAL COLONOSCOPY, Modifiers: [place] , [address] COLONOSCOPE, SUBMUCOUS INJ, Modifiers: 59 , 0529F INTRVL 3+YRS PTS CLNSCP DOCD, 0528F RCMND FLW-UP 10 YRS DOCD, Modifiers: 1P * * The named appointment provid er may or may not be the originator of this progress note, and it is not deemed complete until electronically signed by the appointment provider. Sign off status: Pending * Provider: Sameera Newman MD Date: 0 07/18/2024 Generated for Marc pena/Storm/Cullenitting on: 03/07/2024 02:16 PM EST
--- OUTSIDE RECORDS SUMMARY | 2024-10-14 09:15 | XMS_ITS ---
Author Organization Peter Bernabe MD Address [address] [place], [place] [id number] Care Team Providers Care Wire Worker Name Role Phone ePter Bernabe Primary Care Provider [phone] Allergies Allergen (clinical drug ingredient) Drug/Non Drug Allergy documented on EMR Reaction Allergy Type Onset Date Status azithromycin Zithromax Z-Bryce rash Drug Allergy Active sulfamethoxazole / trimethoprim Bactrim DS rash Drug Allergy Active oxymetazoline 12 Hour Nasal Unknown Drug Allergy Active indomethacin Indomethacin dizziness and confusion Drug Allergy Active REASON FOR VISIT must go over US results Medications Medication SIG (Take, Route, Frequency, Duration) Notes Start Date End Date Status Nystatin 997432 UNIT/GM 1 application Ex ternally Twice a day for 14 days 07/04/2024 Active Motrin IB 200 MG 1 tablet with food o r milk as needed Orally Three times a day Not-Taking Magnesium 400 MG 1 tablet with a meal Orally Once a day Active Vitamin D (Cholecalciferol) 1000 UNIT 1 capsule Orally Once a day 02/05/2018 Active Zinc 50 MG 1 tablet Orally Once a day Active Valtrex 1 GM 1 tablet Orally thre e times a day for 5 days 12/22/2019 Not-Takin g Ambien 5 MG 1 tablet at bedtime Orally Once a day for 30 days 06/08/2020 Not-Taking Benadryl Allergy 25 MG 1 tablet at bedti me as needed Orally Once a day for 30 day(s) Not-Taking Vital Signs Blood pressure systolic 112 mm Hg 10/15/19 25 Blood pressure diastolic 60 mm Hg 025 Height 66.25 in 10/14/2024 Weight 153 lbs 10/14/2024 BMI 24.51 kg/m2 10/14/2024 Encounters Encounter Location Date Provider Diagnosis Peter Bernabe MD [address] [place] [address] [place] [phone] 10/14/2024 Peter Bernabe Knee pain M25.569 Assessments Encounter Date Diagnosis (ICD Code) Assessment Notes Treatment Notes Treatment Clinical Notes Section Notes 10/14/2024 Knee pain (ICD-10 - M25.569) going to ortho and see if she needs surgery/ today her complaints have changed from a fullness to the back of knee to the entire knee hurting. she has had meniscal surgery in the past and at this point she feels that she can't live with this dysfunction. have advised her to get appt with dr talley Plan Of Treatment Treatment Notes Assessment Notes Knee pain going to ortho and s ee if she needs surgery/ today her complaints have changed from a fullness to the back of knee to the entire knee hurting. she has had meniscal surgery in the past and at this point she feels that she can't live with this dysfunction. have advised her to get appt with dr talley Next Appt Details Provider Name:Peter catherine, 03/23/2025 07:30:00 AM, [address] [place] [address], [place] [address], [place], [place], [phone], Provider Name:Peter catherine, 03/28/2025 10:30:00 AM, [address] [place] [address], Suite [facility], [place], [place], [phone], Progress Notes * Izabel VILLEGASDOB:1945 (79 yo F)Acc No.[id number]:10/14/2024 Patient: Izabel PERDOMO Provider: Ba Bernabe MD :1945 A ge:79 Y S ex:Female Date:10/14/2024 Address:[address] [place], [place] [phone] Subjective: * Chief Complaints: * m ust go over US results * HPI: S ymptom(s): patient is a 79 yo female here for follow. up and discussion of recent diagnostic testing, has pain in knee that wakes her up. pain is in back of knee and in the knee itself. * ROS: o nly complaint is that knee. * Medical History: * Surgical History: * Hospitalization/Major Diagno stic Procedure: * Medications: T akingZinc 50 MG Tablet 1 tablet Orally Once a day Magnesium 400 MG Capsule 1 tablet with a meal Orally Once a day Vitamin D (Cholecalciferol) 1000 UNIT Capsule 1 capsule Orally Once a day Nystatin 924481 UNIT/GM Cream 1 application Externally Twice a day Taking Zinc 50 MG Tablet 1 tablet Orally Once a day Taking Magnesium 400 MG Capsule 1 tablet with a meal Orally Once a day Taking Vitamin D (Cholecalciferol) 1000 UNIT Capsule 1 capsule Orally Once a day Taking Nystatin 554788 UNIT/GM Cream 1 application Externally Twice a day Not-Taking/PRNMotrin IB 200 MG Tablet 1 tablet with food or milk as needed Orally Three times a day Benadryl Allergy 25 MG Tablet 1 tablet at bedtime as needed Orally Once a day Valtrex 1 GM Tablet 1 tablet Orally three times a day Ambien 5 MG Tablet 1 tablet at bedtime Orally Once a day Medication List reviewed and reconciled with the patientNot-Taking/PRN Motrin IB 200 MG Tablet 1 tablet with food or milk as needed Orally Three times a day Not-Taking/PRN Benadryl Allergy 25 MG Tablet 1 tablet at bedtime as needed Orally Once a day Not- Taking/PRN Valtrex 1 GM Tablet 1 tablet Orally three times a day Not-Taking/PRN Ambien 5 MG Tablet 1 tablet at bedtime Orally Once a day Medication List reviewed and reconciled with the patient * Allergies: B actrim DS: rashIndomethacin: dizziness and confusion - Side [id number] Hour NasalZithromax Gary-Bryce: brenda[Allergies Verified] Objective: * Vitals: H t: 66.25, Wt: 153, BMI:24.51, BP:112/60, Wt-k.4. * Examination: G eneral Examination: GENERAL APPEARANCE: a lert, well hydrated, in no distress.? EXTREMITIES: l eft knee swollen. and no alba cyst palpable. Assessment: * Assessment: 1. K nee pain - M25.569 (Primary) Plan: * Treatment: * Procedure Codes: * * Sign off status: Completed true * Provider: Ba Bernabe MD Date: 0 10/14/2024 Generated for Marc pena/Storm/Benniesmitting on: 1 03/07/2024 02:18 PM EST History and Physical Notes * HPI (History of Present Illness) Category Sub-Category Detail Notes Category Not es Symptom(s) patient is a 79 yo female here for follow. up and discussion of recent diagnostic testing, has pain in knee that wakes her up. pain is in back of knee and in the knee itself Examination Category Sub-Category Detail Notes Category Not es General Examination GENERAL APPEARANCE: alert, w ell hydrated, in no distress EXTREMITIES: left knee swollen. a nd no alba cyst palpable
--- OUTSIDE RECORDS SUMMARY | 2025-01-05 08:00 | XMS_ITS ---
Author Organization Peter Bernabe MD Address [address] [place] [phone] Care Team Providers Care Road Driver Name Role Phone Peter Bernabe Primary Care Provider REASON FOR VISIT flu shot Immunizations Vaccine Route Administration Date Status Comme nts Fluarix Quadrivalent - 150 IM Intramuscular 01/05/2025 Adm inistered Encounters Encounter Location Date Provider Diagnosis Peter Bernabe MD [address] [place] [phone] 01/05/2025 Peter Bernabe Encounter for administration of vaccine Z23 Assessments Encounter Date Diagnosis (ICD Code) Assessment Notes Treatment Notes Treatment Clinical Notes Section Notes 01/05/2025 Encounter for administration of vaccine (ICD-10 - Z23) Plan Of Treatment Next Appt Details Provider Name:Peter catherine, 03/23/2025 07:30:00 AM, [address] [place] [address], [address] [place] [address], [phone], Provider Name:Peter catherine, 03/28/2025 10:30:00 AM, [address] [place] [address], [address], [phone], Progress Notes * Izabel VILLEGASDOB:1945 (79 yo F)Acc No.[id number]:01/05/2025 Progress Note Patient: Lita GONZALEZIzabel VIDALES Provider: Ba Bernabe MD :1945 A ge:79 Y S ex:Female Date:01/05/2025 Address:[address] [place], [place] [phone] Subjective: * Chief Complaints: * 1 . Flu shot. * Medical History: Objective: * Vitals: Assessment: * Assessment: 1. E ncounter for administration of vaccine - Z23 (Primary) Plan: * Treatment: * Immunizations: Fluarix Quadrivalent - 150 : 0.5 mL (Dose No:1) (Route: Intramuscular) given by Rosy Roa , Office Staff on Left Deltoid * Procedure Codes: 9 0656 FLU VACCINE NO PRESERV 3 & >, G0008 ADMN FLU VAC NO FEE SCHED SAME DAY * * The named appointment provid er may or may not be the originator of this progress note, and it is not deemed complete until electronically signed by the appointment provider. Sign off status: Pending * Provider: Ba Bernabe MD Date: 03/07/2024 Generated for Marc pena/Storm/Cullenitting on: 03/07/2024 02:18 PM EST
--- OUTSIDE RECORDS SUMMARY | 2025-01-05 14:15 | XMS_ITS | Encounter Summary ---
Author Organization [facility] Address [address] [facility] [address] [place] [address] Phone Care Team Providers Care Structural Analyst Name Role Phone Peter Bernabe MD Primary Care Provider Encounter Details Date Type Department Care Team (Late st Contact Info) Description 05/27/2019 Ancillary Orders [facility],Outside Imaging [address] [place] [address] System, Provider [place] In, [place] [address] Social History Tobacco Use Types Packs/Day Years Used Date Smoking Tobacco: Never Assessed Comments Unknown Sex and Gender Information Value Date Recorded Sex Assigned at Not on file Legal Sex Female 10:37 PM EDT Gender Identity Not on file Sexual Orientation Not on file documented as of this encounter Plan of Treatment Not on file documented as of this encounter Results * Mammogram Outside (No Interpretation) (04/13/2018 12:00 AM EST) Narrative SYSTEMGENERATED, DOCUMENTATION - 05/27/2019 11:14 AM EDT This study is for PACS storage only and not for interpretation. us Provider Not In System PhD IMG OUTSIDE IMAGING W /OUT INTERPRETATION Final Result documented in this encounter Visit Diagnoses Not on filedocumented in this encounter Additional Health Concerns Infection Onset Date Last Indicated Resolved Time CoV-Risk 02/17/2021 02/17/2021 02/27/2021 1:22 AM EST documented as of this encounter Care Teams Structural Analyst Relationship Specialty Start Date End Date Peter Bernabe MD [address] [place] [address] [place] [address] PCP - General 03/05/17 documented as of this encounter Additional Source Comments The information contained in this document represents components of the legal health record. It is not the complete legal health record.[facility]
--- OUTSIDE RECORDS SUMMARY | 2025-01-05 14:15 | XMS_ITS | Encounter Summary ---
Author Organization [facility] Address [address] [facility] [address] [place] [address] Phone Care Team Providers Care Hydrator Operator Name Role Phone Peter Bernabe MD Primary Care Provider Encounter Details Date Type Department Care Team (Late st Contact Info) Description 05/27/2019 Ancillary Orders [facility],Outside Imaging [address] [place] [address] System, Provider [place] In, [place] [address] Social History Tobacco Use Types Packs/Day Years Used Date Smoking Tobacco: Never Assessed Comments Unknown Sex and Gender Information Value Date Recorded Sex Assigned at Not on file Legal Sex Female 10:37 PM EDT Gender Identity Not on file Sexual Orientation Not on file documented as of this encounter Plan of Treatment Not on file documented as of this encounter Results * US Breast Outside (No Interpretation) (04/21/2019 12:05 AM EST) Narrative SYSTEMGENERATED, DOCUMENTATION - 05/27/2019 11:13 AM EDT This study is for PACS storage only and not for interpretation. us Provider Not In System PhD IMG OUTSIDE IMAGING W /OUT INTERPRETATION Final Result documented in this encounter Visit Diagnoses Not on filedocumented in this encounter Additional Health Concerns Infection Onset Date Last Indicated Resolved Time CoV-Risk 02/17/2021 02/17/2021 02/27/2021 1:22 AM EST documented as of this encounter Care Teams Hydrator Operator Relationship Specialty Start Date End Date Peter Bernabe MD [address] [place] [address] [place] [address] PCP - General 03/05/17 documented as of this encounter Additional Source Comments The information contained in this document represents components of the legal health record. It is not the complete legal health record.[facility]
--- OUTSIDE RECORDS SUMMARY | 2025-01-05 14:16 | XMS_ITS | Encounter Summary ---
Author Organization [facility] Address [address] [facility] [address] [place] [address] Phone Care Team Providers Care Proj Engineer Name Role Phone Peter Bernabe MD Primary Care Provider Encounter Details Date Type Department Care Team (Late st Contact Info) Description 05/27/2019 Ancillary Orders [facility],Outside Imaging [address] [place] [address] System, Provider [place] In, [place] [address] Social History Tobacco Use Types Packs/Day Years [...] Results * US Breast Outside (No Interpretation) (05/13/2019 12:05 AM EDT) Narrative SYSTEMGENERATED, DOCUMENTATION - 05/27/2019 11:09 AM EDT This study is for PACS storage only and not for interpretation. us Provider Not In System PhD IMG OUTSIDE IMAGING W /OUT INTERPRETATION Final Result documented in this encounter Visit Diagnoses Not on filedocumented in this encounter Additional Health Concerns Infection Onset Date Last Indicated Resolved Time CoV-Risk 02/17/2021 02/17/2021 02/27/2021 1:22 AM EST documented as of this encounter Care Teams Proj Engineer Relationship Specialty Start Date End Date Peter Bernabe MD [address] [place] [address] [address] [place], [place] [address] PCP - General 03/05/17 documented as of this encounter Additional Source Comments The information contained in this document represents components of the legal health record. It is not the complete legal health record.[facility]
--- OUTSIDE RECORDS SUMMARY | 2025-01-05 14:16 | XMS_ITS | Encounter Summary ---
Author Organization [facility] Address [address] [facility] [address] [place] [address] Phone Care Team Providers Care Floral Assistant Name Role Phone Peter Bernabe MD Primary Care Provider Encounter Details Date Type Department Care Team (Late st Contact Info) Description 05/27/2019 Ancillary Orders [facility],Outside Imaging [address] [place] [address] System, Provider [place] In, [place] [address] Social History Tobacco Use Types Packs/Day Years [...] Results * US Breast Outside (No Interpretation) (04/27/2019 12:05 AM EST) Narrative SYSTEMGENERATED, DOCUMENTATION - 05/27/2019 11:11 AM EDT This study is for PACS storage only and not for interpretation. us Provider Not In System PhD IMG OUTSIDE IMAGING W /OUT INTERPRETATION Final Result documented in this encounter Visit Diagnoses Not on filedocumented in this encounter Additional Health Concerns Infection Onset Date Last Indicated Resolved Time CoV-Risk 02/17/2021 02/17/2021 02/27/2021 1:22 AM EST documented as of this encounter Care Teams Floral Assistant Relationship Specialty Start Date End Date Peter Bernabe MD [address] [place] [address] [place] [address] PCP - General 03/05/17 documented as of this encounter Additional Source Comments The information contained in this document represents components of the legal health record. It is not the complete legal health record.[facility]
--- OUTSIDE RECORDS SUMMARY | 2025-01-05 14:16 | XMS_ITS | Encounter Summary ---
Author Organization [facility] Address [address] [facility] [address] [place] [address] Phone Care Team Providers Care Pharmaceutical Detailer Name Role Phone Peter Bernabe MD Primary Care Provider Encounter Details Date Type Department Care Team (Late st Contact Info) Description 05/27/2019 Ancillary Orders [facility],Outside Imaging [address] [place] [address] System, Provider [place] In, [place] [address] Social History Tobacco Use Types Packs/Day Years [...] encounter Results * Mammogram Outside (No Interpretation) (04/21/2019 12:00 AM EST) Narrative SYSTEMGENERATED, DOCUMENTATION - 05/27/2019 11:12 AM EDT This study is for PACS storage only and not for interpretation. us Provider Not In System PhD IMG OUTSIDE IMAGING W /OUT INTERPRETATION Final Result documented in this encounter Visit Diagnoses Not on filedocumented in this encounter Additional Health Concerns Infection Onset Date Last Indicated Resolved Time CoV-Risk 02/17/2021 02/17/2021 02/27/2021 1:22 AM EST documented as of this encounter Care Teams Pharmaceutical Detailer Relationship Specialty Start Date End Date Peter Bernabe MD [address] [place] [address] [place] [address] PCP - General 03/05/17 documented as of this encounter Additional Source Comments The information contained in this document represents components of the legal health record. It is not the complete legal health record.[facility]
--- OUTSIDE RECORDS SUMMARY | 2025-01-05 14:16 | XMS_ITS | Encounter Summary ---
Author Organization [facility] Address [address] [facility] [address] [place] [address] Phone Care Team Providers Care Sewer Contractor Name Role Phone Peter Bernabe MD Primary Care Provider Encounter Details Date Type Department Care Team (Late st Contact Info) Description 05/27/2019 Ancillary Orders [facility],Outside Imaging [address] [place] [address] System, Provider [place] In, [place] [address] Social History Tobacco Use Types Packs/Day Years [...] encounter Results * Mammogram Outside (No Interpretation) (04/27/2019 12:00 AM EST) Narrative SYSTEMGENERATED, DOCUMENTATION - 05/27/2019 11:10 AM EDT This study is for PACS storage only and not for interpretation. us Provider Not In System PhD IMG OUTSIDE IMAGING W /OUT INTERPRETATION Final Result documented in this encounter Visit Diagnoses Not on filedocumented in this encounter Additional Health Concerns Infection Onset Date Last Indicated Resolved Time CoV-Risk 02/17/2021 02/17/2021 02/27/2021 1:22 AM EST documented as of this encounter Care Teams Sewer Contractor Relationship Specialty Start Date End Date Peter Bernabe MD [address] [place] [address] [place] [address] PCP - General 03/05/17 documented as of this encounter Additional Source Comments The information contained in this document represents components of the legal health record. It is not the complete legal health record.[facility]
--- OUTSIDE RECORDS SUMMARY | 2025-01-05 14:16 | XMS_ITS | Encounter Summary ---
Author Organization [facility] Address [address] [facility] [address] [place] [address] Phone Care Team Providers Care Short Order Cook Name Role Phone Peter Bernabe MD Primary Care Provider Encounter Details Date Type Department Care Team (Late st Contact Info) Description 05/27/2019 Ancillary Orders [facility],Outside Imaging [address] [place] [address] System, Provider [place] In, [place] [address] Social History Tobacco Use Types Packs/Day Years [...] encounter Results * Mammogram Outside (No Interpretation) (01/26/2017 12:00 AM EST) Narrative SYSTEMGENERATED, DOCUMENTATION - 05/27/2019 11:15 AM EDT This study is for PACS storage only and not for interpretation. us Provider Not In System PhD IMG OUTSIDE IMAGING W /OUT INTERPRETATION Final Result documented in this encounter Visit Diagnoses Not on filedocumented in this encounter Additional Health Concerns Infection Onset Date Last Indicated Resolved Time CoV-Risk 02/17/2021 02/17/2021 02/27/2021 1:22 AM EST documented as of this encounter Care Teams Short Order Cook Relationship Specialty Start Date End Date Peter Bernabe MD [address] [place] [address] [place] [address] PCP - General 03/05/17 documented as of this encounter Additional Source Comments The information contained in this document represents components of the legal health record. It is not the complete legal health record.[facility]
--- OUTSIDE RECORDS SUMMARY | 2025-01-05 14:16 | XMS_ITS | Encounter Summary ---
Author Organization [facility] Address [address] [facility] [address] [place] [address] Phone Care Team Providers Care Inspector Scales Name Role Phone Peter Bernabe MD Primary Care Provider Encounter Details Date Type Department Care Team (Late st Contact Info) Description 05/27/2019 Ancillary Orders [facility],Outside Imaging [address] [place] [address] System, Provider Not In, [place] [address] Social History Tobacco Use Types Packs/Day Years [...] encounter Results * Mammogram Outside (No Interpretation) (04/19/2019 12:00 AM EST) Narrative SYSTEMGENERATED, DOCUMENTATION - 05/27/2019 11:17 AM EDT This study is for PACS storage only and not for interpretation. us Provider Not In System PhD IMG OUTSIDE IMAGING W /OUT INTERPRETATION Final Result documented in this encounter Visit Diagnoses Not on filedocumented in this encounter Additional Health Concerns Infection Onset Date Last Indicated Resolved Time CoV-Risk 02/17/2021 02/17/2021 02/27/2021 1:22 AM EST documented as of this encounter Care Teams Inspector Scales Relationship Specialty Start Date End Date Peter Bernabe MD [address] [place] [address] [place] [address] PCP - General 03/05/17 documented as of this encounter Additional Source Comments The information contained in this document represents components of the legal health record. It is not the complete legal health record.[facility]
--- OUTSIDE RECORDS SUMMARY | 2025-01-05 14:16 | XMS_ITS | Encounter Summary ---
Author Organization [facility] Address [address] [facility] [address] [place] [address] Phone Care Team Providers Care Neonatologist Name Role Phone Peter Bernabe MD Primary Care Provider Encounter Details Date Type Department Care Team (Late st Contact Info) Description 05/27/2019 Ancillary Orders [facility],Outside Imaging [address] [place] [address] System, Provider Not In, [place] [address] Social History Tobacco Use Types Packs/Day Years [...] encounter Results * Mammogram Outside (No Interpretation) (01/10/2016 12:00 AM EST) Narrative SYSTEMGENERATED, DOCUMENTATION - 05/27/2019 11:16 AM EDT This study is for PACS storage only and not for interpretation. us Provider Not In System PhD IMG OUTSIDE IMAGING W /OUT INTERPRETATION Final Result documented in this encounter Visit Diagnoses Not on filedocumented in this encounter Additional Health Concerns Infection Onset Date Last Indicated Resolved Time CoV-Risk 02/17/2021 02/17/2021 02/27/2021 1:22 AM EST documented as of this encounter Care Teams Neonatologist Relationship Specialty Start Date End Date Peter Bernabe MD [address] [place] [address] [place] [address] PCP - General 03/05/17 documented as of this encounter Additional Source Comments The information contained in this document represents components of the legal health record. It is not the complete legal health record.[facility]
--- OUTSIDE RECORDS SUMMARY | 2025-01-05 14:19 | XMS_ITS | Clinical Summary ---
Author Organization [facility] Address [address] [facility] [address] [place] [address] Phone Care Team Providers Care Insurance Broker Name Role Phone Peter Bernabe MD Primary Care Provider Allergies Active Allergy Reactions Criticality Noted Date Comments Sulfa (Sulfonamide Antibiotics) 05/31 Sulfamethoxazole-Trimethoprim Unknown 2024 Medications MAGNESIUM ORAL Take by mouth. Active cholecalciferol , vitamin D3, (VITAMIN D3 ORAL) Take by mouth. Activ e naproxen (NAPROSYN) 500 MG tablet Take 1 tablet (500 mg total) by mouth 2 (two) times a day for 3 days. Then twice daily as needed for pain, inflammation 20 tablet 1 Active tretinoin (RETIN-A) 0.1 % cream 1 application a anders-sized amount to face in the evening 45 g 3 4 Active Active Problems Problem Noted Date Diagnosed Date Malignant neoplasm of upper- inner quadrant of left breast in female, estrogen receptor positive 06/19/2019 Encounters Date Type Department Care Team Description 10/10/2024 3:08 PM EDT - 10/10/2024 11:59 PM EDT Hospital Encounter [facility] [address] [place] [address] Peter Bernabe MD Discharge Disposition: Home or Self Care 10/10/2024 2:15 PM EDT Office Visit [facility] [address] [place] [address] Loy Escalante MD Facial aging (Primary Dx) 10/06/2024 Transcribe Orders Virtual Department [address] [place] [address] Peter Bernabe MD Weber's cyst, left (Primary Dx) from Last 3 Months Immunizations Immunization Administration Dates Next Due Hiv 06/16/2020 INFLUENZA, SPLIT VIRUS, TRIVALENT PF ,12/21/2017,11/25/2016,11/11 Influenza High-Dose Trivalen t Preservative Free IM 11/15/2019,12/17/2018 Pneumococcal conjugate PCV13 12/31/2015 Pneumococcal polysaccharide PPSV23 02/10/2019 Td (adult) 5 Lf Tetanus Toxo id, PF, Adsorbed 06/19/2014 Family History Medical History Relation Comments Lung cancer Mother Relation Status Comments Mother Social History Tobacco Use Types Packs/Day Years Used Date Smoking Tobacco: Former Cigarettes Q uit: 1977 Smokeless Tobacco: Never Tobacco Cessation:Counseling Given: Not Answered Education Answer Date Recorded Are you interested [...] on file Sexual Orientation Not on file Last Filed Vital Signs Vital Sign Reading Time Taken Comments Blood Pressure 136/77 10/10/2024 2:01 PM EDT Pulse 79 10/10/2024 2:01 PM EDT Temperature 36.6 C (97.9 F) 02/17/2021 11:18 AM EST Respiratory Rate 16 02/17/2021 11:18 AM EST Oxygen Saturation 98% 02/17/2021 11:18 AM EST Inhaled Oxygen Concentration - - Weight 69.4 kg (153 lb) 10/10/2024 2:01 PM EDT Height 172.7 cm (5' 8 ) 02/17/2021 11:18 AM EST Body Mass Index 23.26 02/17/2021 11:18 AM EST Plan of Treatment Health Maintenance Due Date Last Done Comments LIPID PANEL 1946 DEPRESSION SCREENING 1958 HEPATITIS C SCREENING 1964 ZOSTER VACCINES (1 of 2) 1965 OSTEOPOROSIS SCREENING INITIAL (ONE-TIME) 08/25/2011 RSV VACCINE (1 - 1-dose 75+ series) 2021 Adult Td,Tdap Booster 06/19/2024 06/19/2014 INFLUENZA VACCINE (#1) 2024 , 11/15/2019, 12/17/2018, Additional history exists COVID-19 VACCINE ( season) 2024 06/18/2020, 05/26/2020 SMOKING Hx and SMOKELESS TOBACCO SCREENING 05/17/2025 05/17/2024 PNEUMOCOCCAL VACCINES (50+ years) Completed 02/10/2019, 12/31/2015 HEPATITIS A VACCINES Aged Out No long er eligible based on patient's age to complete this topic HIB VACCINES Aged Out No longer eligi ble based on patient's age to complete this topic MENINGOCOCCAL VACCINES (ACWY) Aged Out No longer eligible based on patient's age to complete this topic MENINGOCOCCAL VACCINES (B) Aged Out N o longer eligible based on patient's age to complete this topic Medical Devices Not on file Procedures Procedure Name Priority Date/Time Associated Diagnosis Comments US LOWER EXTREMITY VEINS DUPLEX (LEFT) Routine 10/10/2024 3:58 PM EDT Weber's cyst, left from Last 3 Months Results * US Lower Extremity Veins Duplex (Left) (10/10/2024 3:58 PM EDT) Anatomical Region Laterality Modality Hip Left, Thigh Left, Knee L eft, Leg Left, Ankle Left, Foot Left Ultrasound 10/10/2024 4:39 PM EDT Impressions 10/10/2024 4:40 PM EDT * No evidence of deep or superficial venous thrombosis in the visualized veins of the left lower extremity. Narrative 10/10/2024 4:40 PM EDT US LOWER EXTREMITY VEINS DUPLEX (LEFT) Referring clinician's provided indication for this examination in [facility]: Outside Radiology Order; bakers cyst, left TECHNIQUE: Lower extremity venous ultrasound with color and spectral Doppler. COMPARISON: None FINDINGS: Exam Quality: Technically adequate exam demonstrates: Left lower extremity: Common femoral vein: Normal compressibility and flow characteristics. Femoral vein: Normal compressibility and flow characteristics. Proximal profunda femoral vein: Normal compressibility. Popliteal vein: Normal compressibility and flow characteristics. Posterior tibial veins: Normal compressibility. Peroneal veins: Normal compressibility. Gastrocnemius: Normal compressibility. Great saphenous vein: Normal compressibility at the saphenofemoral junction. Fluid collection in the popliteal fossa on the left side measuring 2.6 x 2.7 x 0.9 cm, likely a Weber's cyst. Contralateral common femoral vein: Normal compressibility. Procedure Note Fuentes Burleson MBBS - 10/10/2024 US LOWER EXTREMITY VEINS DUPLEX (LEFT) Referring clinician's provided indication for this examination in [facility]:Outside Radiology Order; bakers cyst, left TECHNIQUE: Lower extremity venous ultrasound with color and spectralDoppler. COMPARISON: None FINDINGS: Exam Quality: Technically adequate exam demonstrates: Left lower extremity: Common femoral vein: Normal compressibility and flow characteristics. Femoral vein: Normal compressibility and flow characteristics. Proximal profunda femoral vein: Normal compressibility. Popliteal vein: Normal compressibility and flow characteristics. Posterior tibial veins: Normal compressibility. Peroneal veins: Normal compressibility. Gastrocnemius: Normal compressibility. Great saphenous vein: Normal compressibility at the saphenofemoraljunction. Fluid collection in the popliteal fossa on the left side measuring 2.6 x2.7 x 0.9 cm, likely a Weber's cyst. Contralateral common femoral vein: Normal compressibility. IMPRESSION: * No evidence of deep or superficial venous thrombosis in the visualizedveins of the left lower extremity. Peter Bernabe MD [facility] VASCULAR Final R esult from Last 3 Months Insurance MEDICARE PART A & B [employer] MEDICARE SUPPLEMENT MEDICARE PART A & B [employer] MEDICARE SUPPLEMENT MEDICARE PART A & B [employer] MEDICARE SUPPLEMENT MEDICARE PART A & B [employer] MEDICARE SUPPLEMENT MEDICARE PART A & B [facility] MEDICARE SUPPLEMENT MEDICARE PART A & B [facility] [employer] MEDICARE SUPPLEMENT [employer] MEDICARE SUPPLEMENT MEDICARE PART A & B [facility] MEDICARE SUPPLEMENT MEDICARE PART A & B [facility] MEDICARE SUPPLEMENT Care Teams Insurance Broker Relationship Specialty Start Date End Date Peter Bernabe MD [address] [place] [address] [place] [address] PCP - General 03/05/17 Additional Source Comments The information contained in this document represents components of the legal health record. It is not the complete legal health record.[facility]
--- OUTSIDE RECORDS SUMMARY | 2025-01-05 14:19 | XMS_ITS | Patient Health Record ---
Author Organization [facility] Address [address] [place] [phone] Care Team Providers Care Chemistry Specialist Name Role Phone Peter Bernabe MD Primary Care Provider Zak Castro [phone] Allergies Allergen (clinical drug ingredient) Drug/Non Drug Allergy documented on EMR Reaction Allergy Type Onset Date Status Substance with sulfonamide structure and antibacterial mechanism of action (substance) Sulfa Antibiotics Unknown Drug Allergy Active Results Component Value Reference Range Notes Pathology Reviewed date:07/21/2024 10:17:12 PM Interpretation: Performing Lab:[facility], [address] [place] [id number] Notes/Report: Reason For Referral No Information Medications [...] Status Risk Notes Problem Colon cancer screening (280808452) Colon cancer screening (Z12.11) Active confirmed Problem Pre-procedure evaluation check (155646832) Encounter for other preprocedural examination (Z01.818) Active confirmed Vital Signs Blood pressure diastolic 00 mm Hg 01/20/2024 Height 5 ft 8 in in 01/20/2024 Blood pressure systolic 00 mm Hg 01/20/2024 Weight 150 lbs 01/20/2024 BMI 22.80 kg/m2 01/20/2024 Encounters Encounter Location Date Provider Diagnosis [facility] Outpatient [address] [place] [phone] 07/18/2024 Zak Newman Colon cancer screeni ng Z12.11 ; 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 ; Adenomatous colon polyp D12.6 and Diverticulosis of large intestine without perforation or abscess without bleeding K57.30 [facility] [address] [place] [phone] 01/20/2024 Zak Newman Colon cancer screeni ng Z12.11 and Encounter for other preprocedural examination Z01.818 [facility] [address] [place] [phone] 01/20/2024 Zak Newman [facility] [address] [place] [phone] 04/05/2024 Zak Newman [facility] [address] [place] [phone] 07/21/2024 Zak Newman Assessments Encounter Date Diagnosis [...] Date MEDICARE OF [place] [address] [place] [address] [id number] MARILEE VILLEGAS Self - patient is the insured [employer] ([email or web address]) [address] [place] [address] [phone] [id number] MARILEE VILLEGAS Self - patient is the insured Medical (General) History Medical History History ICD Code Denies NC,DM,CVA,Lung disease,renal dise ase Breast cancer on the left-surgery and XR T in 2019 Negative colonoscopy [address] Kennedy s Surgical History Surgery Date(Month/Year) Left lumpectomy for breast cancer with X RT as above ZAYRA
--- OUTSIDE RECORDS SUMMARY | 2025-01-05 14:20 | XMS_ITS | Encounter Summary ---
Author Organization [facility] Address [address] [place] [address] Phone Care Team Providers Care Telegraph Mechanic Name Role Phone Peter Bernabe MD Primary Care Provider Reason for Referral * Outpatient Procedure - Closed Specialty Diagnoses / Procedures Referred By Carmen england Referred To Contact Radiology Diagnoses Weber's cyst, left Procedures US Lower Extremity Veins Duplex (Left) Peter Bernabe MD [address] [place] [address] Dr MORFIN [address] [place], [place] [address] [address] Phone: tel: fax: Referral ID Status Reason Start Date Expiration Date Visits Re quested Visits Authorized [id number] Closed 10/06/2024 10/06/2025 1 1 Encounter Details Date Type Department Care Team (Late st Contact Info) Description 10/06/2024 Transcribe Orders Virtual Department [address] [place] [address] Peter Bernabe MD [address] [place] [address] Dr MORFIN [address] [place], [place] [address]sig[place] [id number] Weber's cyst, left (Primary Dx) Social History Tobacco Use Types Packs/Day Years Used Date Smoking Tobacco: Former Cigarettes Q uit: 1977 Smokeless Tobacco: Never Education Answer Date Recorded [...] as of this encounter Results * US Lower Extremity Veins Duplex [...] clinician's provided indication for this examination in Epic: Outside Radiology Order; bakers cyst, left TECHNIQUE: [...] clinician's provided indication for this examination in Epic:Outside Radiology Order; bakers cyst, left TECHNIQUE: Lower [...] the visualizedveins of the left lower extremity. us Peter Bernabe MD CV US VASCULAR Final R esult documented in this encounter Visit Diagnoses Diagnosis Weber's cyst, left- Primary Weber's cyst, left documented in this encounter Care Teams Telegraph Mechanic Relationship Specialty Start Date End Date Peter Bernabe MD [address] [place] [address] [place] [address] PCP - General 03/05/17 documented as of this encounter Additional Source Comments The information contained in this document represents components of the legal health record. It is not the complete legal health record.[facility]
--- OUTSIDE RECORDS SUMMARY | 2025-01-05 14:20 | XMS_ITS | Encounter Summary ---
Author Organization [facility] Address [address] [facility] [address] [place] [address] Phone Care Team Providers Care Slide Attendant Name Role Phone Peter Bernabe MD Primary Care Provider Encounter Details Date Type Department Care Team (Late st Contact Info) Description 05/27/2019 Ancillary Orders [facility],Outside Imaging [address] [place] [address] System, Provider [place] In, [place] [address] Social History Tobacco Use Types Packs/Day Years Used Date Smoking Tobacco: Never Assessed Comments Unknown Sex and Gender Information Value Date Recorded Sex Assigned at Not on file Legal Sex Female 10:37 PM EDT Gender Identity Not on file Sexual Orientation Not on file documented as of this encounter Plan of Treatment Not on file documented as of this encounter Results * NM Other Outside (No Interpretation) (05/13/2019 12:00 AM EDT) Narrative SYSTEMGENERATED, DOCUMENTATION - 05/27/2019 11:08 AM EDT This study is for PACS storage only and not for interpretation. us Provider Not In System PhD IMG OUTSIDE IMAGING W /OUT INTERPRETATION Final Result documented in this encounter Visit Diagnoses Not on filedocumented in this encounter Additional Health Concerns Infection Onset Date Last Indicated Resolved Time CoV-Risk 02/17/2021 02/17/2021 02/27/2021 1:22 AM EST documented as of this encounter Care Teams Slide Attendant Relationship Specialty Start Date End Date Peter Bernabe MD [address] [place] [address] Dr [place], [place] [address] PCP - General 03/05/17 documented as of this encounter Additional Source Comments The information contained in this document represents components of the legal health record. It is not the complete legal health record.[facility]
--- OUTSIDE RECORDS SUMMARY | 2025-01-05 14:20 | XMS_ITS | Patient Health Record ---
Author Organization Peter Bernabe MD Address [address] [place], [place] [id number] Care Team Providers [employer] Bolter Name Role Phone Peter Bernabe Primary Care Provider Allergies Allergen (clinical drug ingredient) Drug/Non Drug Allergy documented on EMR Reaction Allergy Type Onset Date Status azithromycin Zithromax Z-Bryce rash Drug Allergy Active indomethacin Indomethacin dizziness and confusion Drug Allergy Active sulfamethoxazole / trimethoprim Bactrim DS rash Drug Allergy Active oxymetazoline 12 Hour Nasal Unknown Drug Allergy Active Results Component Value Reference Range Notes Hemoglobin A1c Reviewed date:09/22/2024 10:58:48 AM Interpretation: Performing Lab: Notes/Report: Hemoglobin A1c 6.1 Complete Blood Count Auto Di ff Reviewed date:03/17/2024 05:31:14 PM Interpretation: Performing Lab:[facility], [address] [place] [phone] Notes/Report: White Blood Count 5.3 4.8-10.8 X10*3/uL Red Blood Count 4.62 4.20-5.50 X10*6/uL Hemoglobin 13.5 12.0-16.0 g/dl Hematocrit 41.6 37.0-47.0 % Mean Corpuscular Volume 90.0 80.0-98.0 fL Mean Corpuscular Hemoglobin 29.2 27.0-33.0 pg Mean Corpuscular HGB Conc 32.5 31.0-35.0 g/dl Red Cell Distribution Width 12.5 11.0-16.0 % Platelet Count 225 160-400 X10*3/uL Mean Platelet Volume 10.0 9.4-12.3 fL Neutrophils Percent Auto 53.6 45-73 % Imm Gran Pct Auto 0.4 0.0-0.4 % Lymphocytes Percent Auto 32.8 20-40 % Monocytes Percent Auto 10.1 2-11 % Eosinophils Percent Auto 2.1 0-4 % Basophils Percent Auto 1.0 0-2 % NRBC Pct Auto 0.0 0.0-0.2 /100WBC Neutrophils Absolute Auto 2.8 2.0-8.3 x10*3/uL Imm Gran Abs Auto 0.02 0.00-0.03 X10*3/uL Lymphocytes Absolute Auto 1.7 1.2-4.9 X10*3/uL Monocytes Absolute Auto 0.5 0.1-1.2 X10*3/uL Eosinophils Absolute Auto 0.1 0.0-0.4 X10*3/uL Basophils Absolute Auto 0.1 0.0-0.2 X10*3/uL NRBC Abs Auto 0.000 0.0-0.012 X10*3/uL Comprehensive [place]. Panel Fa st Reviewed date:03/17/2024 05:12:25 PM Interpretation: Performing Lab:[facility], [address] [place] [phone] Notes/Report: Sodium 141 135-145 mmol/L Potassium 4.2 3.3-5.1 mmol/L Chloride 108 96-108 mmol/L Carbon Dioxide 28 22-29 mmol/L Anion Gap 9 12-20 Blood Urea Nitrogen 15 9-16 mg/dL Creatinine 0.71 0.5-1.4 mg/dL Estimated Glomerular Filt Rate > 60 Chronic Kidney Disease: Estimated GFR < 60 mL/min/1.73m2 Severe Kidney Disease: Estimated GFR < 15 mL/min/1.73m2 Glucose Fasting 94 60-99 mg/dL Calcium 9.0 8.4-10.2 mg/dL Bilirubin Total 0.6 0.0-1.0 mg/dL Aspartate Amino Transferase 23 5-31 U/L Alanine Aminotransferase 16 0-31 U/L Total Protein 6.7 6.5-8.0 g/dL Albumin Level 4.0 3.5-5.0 g/dL Alkaline Phosphatase 79 39-117 U/L Lipid Panel Reviewed date:03/17/2024 05:11:04 PM Interpretation: Performing Lab:[facility], [address] [place] [phone] Notes/Report: Triglycerides 57 <150 mg/dL Desirable Triglyceride: less than 150 mg/dL Borderline High Triglyceride 150-199 mg/dL High Triglyceride: 200-499 mg/dL Very High Triglyceride: greater than or equal to 5OO mg/dL Cholesterol 214 <200 mg/dL Desirable Cholesterol: less than 200 mg/dL Borderline High Cholesterol: 200-239 mg/dL High Cholesterol: greater than 239 mg/dL LDL Cholesterol Calculated 112 <100 mg/dL Desirable LDL: less than 100 mg/dL Near Optimal/Above Optimal LDL: 110-129 mg/dL Borderline High LDL: 130-159 mg/dL High LDL: 160-189 mg/dL Very High LDL: greater than or equal to 190 mg/dL HDL Cholesterol 91 >40 mg/dL Desirable HDL: greater than 40 mg/dL Note: This HDL assay may give artificially low results in patients with liver disease. Microalbumin, Random Reviewed date:03/17/2024 05:13:07 PM Interpretation: Performing Lab:[facility], [address] [place] [phone] Notes/Report: Creatinine Urine 112.21 Microalbumin Urine 5.0 Microalbum/Creatinine Ratio Ur 4.4 <30 ug/mg cr Albumin/Creatinine Ratio Reference Ranges: Normal: < 30 ug/mg creatinine Microalbuminuria: 30 - 300 ug/mg creatinine Clinical Albuminuria: > 300 ug/mg creatinine Hemoglobin A1c Reviewed date:03/17/2024 05:12:35 PM Interpretation: Performing Lab:[facility], [address] [place] [phone] Notes/Report: Hemoglobin A1c % 5.8 <6.0 % [...] average glucose, using the formula of the [id number]-[id number] Average Glucose study (ADAG), Diabetes Care, Vol.31,#8, 2007 UA ClnCatch+Micro w/rflx Cul t Reviewed date:03/18/2024 11:29:26 AM Interpretation: Performing Lab:[facility], [address] [place] [phone] Notes/Report: Urine, Clean Catch Color Urine Yellow Appearance Urine Clear PH 6.5 5.0-9.0 Glucose Urine UA Negative Negative mg/dL Urine Blood Negative Negative Specific [place] - Urine 1.020 1.005-1.025 Urine Protein Negative Neg-Trace mg/dL Urine Ketones Negative Negative mg/dL Nitrite Urine Negative Negative Leukocyte Esterase Urine Trace Negative RBC Urine 0-2 0-2 /HPF WBC Urine 0-5 0-5 /HPF Squamous Epithelial Cell Urine 0-2 0-2 /HPF Bacteria Urine None Seen None Seen Hyaline Casts Urine 0-2 0-2 /LPF Glucose, finger stick Reviewed date:09/22/2024 10:46:21 AM Interpretation: Performing Lab: Notes/Report: Value 110 Rehana Prado Reviewed date:03/17/2024 05:11:12 PM Interpretation: Performing Lab:[facility], [address] [place] [phone] Notes/Report: Rehana Prado See Note Specimen held untested for 24 hours; Call to request Chemistry testing. Pathology Reviewed date:07/20/2024 03:57:33 PM Interpretation: Performing Lab:[facility], [address] [place] [phone] Notes/Report: ------ Name: Izabel Peralta Age/Sex: 78/F : 1945 Unit#: [id number] Attend Dr: Zak Newman MD Re07/18/24 Status : [facility] Location: [facility].SS[facility] Disch: ------ SPEC : [id number] RECD : 07/18/24 STATUS: NORMAN XAIO NUM: [id number] PEDRO: 07/18/24-11[address] [facility] DR: Zak Newman MD ENTERED: 07/18/24 43 SP TYPE: Surgical OTHR DR: Peter Bernabe MD ORDERED: HE Stain/6, Gross Micro L4/2 Diagnosis A. Colon, 15 cm, polypectomy: Hyperplastic mucosal polyp with prolapse changes. B. Rectum, polypecto my: Fragments of tubulovillous adenoma; negative for high-grade dysplasia or carcinoma. Clinical History Pre-Op Dx: Screening Post-Op Dx: Colon po lyps, diverticulosis and hemorrhoids Microscopic Description A, B. Microscopic se ctions reviewed. Material Received A. Polyp at 15 B. Rectal polyp Gross Description Received in two parts. Part A: Received in formalin labeled ?polyp at 15? is a 0.3 cm congested and hemorrhagic red-maroon papular t issue fragment, submitted in toto in a cassette labeled A. Also received are a few 0 .1-0.2 cm gritty, hard, william and maroon-brown fragments of debris, retained in formalin. Part B: Received in formalin labeled rectal polyp? are 3 william and pink-maroon irregular and lobular-polypoid tis trish fragments ranging from 0.3 to 1.5 cm. The resected base of the 2 larger fragments are inked and each is sectioned and entirely submitted in cassettes B1 and B2. The smaller tiss ue fragment is submitted in toto in cassette B3. CEDS This case was review ed intradepartmentally (B). Copies To: Peter Bernabe MD [facility] [address] [place] [phone] CONTINUED ON NEXT PAGE ------ Name: Izabel Peralta Age/Sex: 78/F : 1945 Unit#: [id number] Attend Dr: Zak Newman MD Re07/18/24 Status : [facility] Location: [facility] Disch: ------ SPEC : [id number] RECD : 07/18/24-1235 STATUS: NORMAN XIAO NUM: [id number] PEDRO: 07/18/241117 [facility] DR: Zak Newman MD ENTERED: 07/18/24-12 43 SP TYPE: Surgical OTHR DR: Peter Bernabe MD ORDERED: LALITO Stain/6, Taryn Barone L4/2 Copies To: (Continued) Zak Newman MD [address] [place] [address] ------ Signed (signature on file) Aurelio Grimm MD 07/20/24 1146 ------ END OF REPORT Reason For Referral No Information Medications Medication SIG (Take, Route, Frequency, Duration) Notes Start Date End Date Status Nystatin 927097 UNIT/GM 1 application Ex ternally Twice a [...] Once a day for 30 day(s) Not-Taking Immunizations Vaccine Route Administration Date Status Comme nts Tetanus Unknown 02/06/2009 Administered Fluarix Quadrivalent IM Intramuscular 11/01/2013 Administe red PPSV23 (Pnemovax) IM Intramuscular 11/18/2013 Administered Fluarix Quadrivalent IM Intramuscular 12/28/2014 Administeitan red Fluarix Quadrivalent IM Intramuscular [facility] Intr[facility] 12/31/2015 Administered Fluarix Quadrivalent IM Intramuscular 11/25/[facility] Quad[facility] Intramus[facility] 12/21/2017 Admincetor red Influenza High Dose IM Intramuscular 12/17/2018 Administer ed PPSV23 (Pnemovax) IM Intramuscular 02/10/2019 Administered Influenza High Dose IM Intramuscular 11/15/2019 Administer ed Covid Vaccine Unknown 05/26/2020 Administered Pfizer Covid Vaccine Unknown 06/16/2020 Administered Pfizer Fluarix Quadrivalent IM Intramuscular 11/16/2020 Administeitan red Fluarix Quadrivalent IM Intramuscular 12/12/2021 Administe red Fluarix Quadrivalent IM Intramuscular 12/01/2022 Administe red Fluarix Quadrivalent - 150 IM Intramuscular 12/24/2023 Administered Fluarix Quadrivalent - 150 IM Intramuscular 01/05/2025 Administered Flu Vaccine Unknown 11/01/2013 Pending Social History Tobacco Use: Social History Observation [...] year? 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) Active confirmed Problem 072895186 Prediabetes (R73.03) Active confirmed Problem 560588702 Pure hypercholesterolemia (E78.00) Active confirmed Problem 232524422 Osteopenia deter mined by x-ray (M85.80) Active confirmed Problem 37602641 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) Active confirmed Problem 418698565 Insomnia, unspec ified type (G47.00) Active confirmed Problem 192248072 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 Vital Signs Blood pressure diastolic 60 mm Hg 10/14/2024 Height 66.25 in 10/14/2024 Blood pressure systolic 112 mm Hg 10/14/2024 Weight 153 lbs 10/14/2024 BMI 24.51 kg/m2 10/14/2024 Encounters Encounter Location Date Provider Diagnosis Peter Bernabe MD [address] [place] [id number] 03/17/2024 Peter Bernabe Pure hypercholestero lemia E78.00 ; Prediabetes R73.03 and Vitamin D deficiency E55.9 Peter Bernabe MD [address] [id number] 01/05/2025 Peter Bernabe Encounter for administration of vaccine Z23 Peter Bernabe MD [address] [place] [id number] 03/24/2024 Peter Bernabe Pure hypercholestero lemia E78.00 ; Prediabetes R73.03 ; Vitamin D deficiency E55.9 ; Colon cancer screening Z12.11 and Depression screening Z13.31 Peter Bernabe MD [address] [place] [id number] 09/22/2024 Peter Bernabe Prediabetes R73.03 a nd Weber's cyst, left M71.22 Peter Bernabe MD [address] [id number] 10/14/2024 Peter Bernabe Knee pain M25.569 Peter Bernabe MD [address] [place] [address] [id number] 07/04/2024 Peter Bernabe Assessments Encounter Date Diagnosis (ICD Code) Assessment Notes Treatment Notes Treatment Clinical Notes Section Notes 03/17/2024 Pure hypercholesterolemia (ICD-10 - E78.00) 03/17/2024 Prediabetes (ICD-10 - R73.03) 01/05/2025 Encounter for administration of vaccine (ICD-10 - Z23) 03/24/2024 Pure hypercholesterolemia (ICD-10 - E78.00) advised on diet, will continue to monitor no need for meds 03/24/2024 Prediabetes (ICD-10 - R73.03) well controlled, no need for medication at this time 09/22/2024 Prediabetes (ICD-10 - R73.03) stable, no need for medication at this time 09/22/2024 Weber's cyst, left (ICD-10 - M71.22) [place] [facility] [place], pending diagnostic testing 10/14/2024 Knee pain (ICD-10 - M25.569) going to ortho and see if she needs surgery/ today her complaints have changed from a fullness to the back of knee to the entire knee hurting. she has had meniscal surgery in the past and at this point she feels that she can't live with this dysfunction. have advised her to get appt with dr talley 03/17/2024 Vitamin D deficiency (ICD-10 - E55.9) 03/24/2024 Vitamin D deficiency (ICD-10 - E55.9) stable, will cntnue current regiment 03/24/2024 Colon cancer screeni ng (ICD-10 - Z12.11) guaiac negative 03/24/2024 Depression screening (ICD-10 - Z13.31) negative screen Plan Of Treatment Pending Test Test Name Order Date Electrocardiogram (EKG) 02/10/2019 MRI BRAIN NO CONTRAST 04/16/2023 US SOFT TISSUE 04/19/2021 US LEG LT VENOUS DOPPLER 09/22/2024 TSH REFLEX FREE T4 07/05/2020 Next Appt Details Provider Name:Peter Blake ier, 03/23/2025 07:30:00 AM, [address] [place] [address], [address], [phone], Provider Name:Peter Blake ier, 03/28/2025 10:30:00 AM, [address] [place] [address], Suite [facility], [place], [place], [phone], Insurance Providers Payer Name Payer Address Payer Phone Subscriber Number Group Number Insured Name Patient Relationship to Insured Coverage Start Date Coverage End Date MEDICARE NHIC [facility] [address] [place] [address] [id number] Izabel Peralta Self - patient is the insured [facility] [address] [place] [phone] [id number] Izabel Peralta Self - patient is the insured Medical (General) History Medical History History ICD Code lipoma left axilla colonoscopy 05/16/2010 (repea t in 7 to 10 years): Colonoscopy 07/24 repeat one year Surgical History Surgery Date(Month/Year) LT Breast Lumpectomy w/Biopsy - Dr. Vanegas [facility] 05/2019
== END 2025-01-05 11:25 | disposition home or self-care (01) ==
LOC: HO.MAMMO 11:24
PROVIDERS: Visit Provider Internal Medicine
DX: Z12.31 Encounter for screening mammogram for malignant neoplasm of breast (principal)
CPT/HCPCS: 77063; 77067

== ENCOUNTER → 2025-01-05 11:30 | Outpatient (BNV) | payer MEDICARE, OTHER, SELFPAY | PROVIDERS: Visit Provider Internal Medicine | DX: Z12.31 Encounter for screening mammogram for malignant neoplasm of breast (principal) | CPT/HCPCS: 77063; 77067 ==